=== PATIENT | male | born 1955 | race Caucasian/White ===

== ENCOUNTER → 2016-09-07 19:20 | Outpatient (CLI) | payer BC ==
[2015-08-13 13:10] VITALS: BMI 34.5
[~2016-09-07 19:20] MED LIST: ASPIRIN81 MG PO; COREG 3.1253.125 MG PO; EFFIENT10 MG PO
== END | disposition home or self-care (01) ==
LOC: D.SLEEP 19:20
DX: G47.33 Obstructive sleep apnea (adult) (pediatric) (principal)

== ENCOUNTER 2017-01-04 21:43 | Observation (INO) | payer BC ==
[~2017-01-04] VITALS: Ht 182.9 cm; Wt 120.7 kg
--- NOTE | ~2017-01-04 | HEMODYNAMI ---
PATIENT:ADRIANA MASON MEDICAL RECORD: [id number] : 51 [facility] [id number] ADMISSION DATE: 01/04/17 Generatedon:01/06/201714:49 Patient name: ADRIANA MASON Patient #: [id number] SSN: : 1955 Date of study: 01/06/2017 Page: Of Hemodynamic Procedure Report Patient Data Patient Demographics Procedure consent was obtained First Name: ADRIANA Gender: Male Last Name: ISABELLA : 1955 [facility] Initial: M Age: 61 year(s) Patient #: [id number] Race: Additional ID: [id number] Contact details Address: [address] [place] [address] State: [place] City: [place] Zip code: [address] Past Medical History Allergies: No known allergies Admission Admission Data Admission Date: 01/04/2017 Admission Time: 23:59 Room #: D2126 Lab Results Lab Result Date: 01/06/2017 Lab Result Time: 0:00 Biochemistry Name Units Result Min Max BUN mg/dl 19 --(----)*- 7 18 Creatinine mg/dl 1.3 --(---*)-- 0.6 1.3 CBC Name Units Result Min Max Hemoglobin g/dl 16.5 --(--*-)-- 13.5 17.5 Procedure Procedure Types Cath Procedure Diagnostic Procedure LHC C w/Coronaries PCI Procedure PTCA Initial x2 Miscellaneous Procedures Moderate Sedation up to 30 minutes Procedure Description Procedure Date Procedure Date: 01/06/2017 Procedure Start Time: 14:24 Procedure End Time: 14:42 Procedure Staff Name Function Mynor Angel RT Scrub Barrington Mcpherson MD Performing Physician Jelena Marr RN Nurse Manuel Mariee RT Monitor Procedure Data Cath Procedure Fluoroscopy Diagnostic fluoroscopy Total fluoroscopy Time: 5.6 time: 5.6 min min Diagnostic fluoroscopy Total fluoroscopy dose: 926 dose: 926 mGy mGy Contrast Material Contrast Material Type Amount (ml) Isovue 300 125 Entry Location Entry Primary Successful Side Size Upsize Upsize Entry Closure Marquez ccessful Closure Location (Fr) 1 (Fr) 2 (Fr) Remarks Device Remarks Radial Right 6 Fr Mechanical artery Short Compression Diagnostic catheters Device Type Used For End Catheter Placement Diagnostic Terumo 5Fr LV Angiography [place] 110cm catheter Procedure Complications No complications Procedure Medications Medication Administration Route Dosage Oxygen NC 2 l/min Heparin Flush Bag added to field 2 bags (1000units/500ml NS) Lidocaine 2% added to field 20 Radial Cocktail added to field 1 syringe (Verapomil 2mg/Nitro 400mcg/Heparin 1500units) Versed I.V. 1 mg Fentanyl I.V. 50 mcg Fentanyl I.V. 50 mcg Versed I.V. 1 mg Radial Cocktail I.A. 1 syringe (Verapomil 2mg/Nitro 400mcg/Heparin 1500units) Fentanyl I.V. 50 mcg Versed I.V. 1 mg Heparin Bolus I.V. 5000 units Integrilin (Bolus I.V. 10.7 ml 2mg/ml) Plavix P.O. 600 mg Hemodynamics Rest HGB: 16.5 (g/dl) Heart Rate: 71 (bpm) Pressure Samples Time Site Value (mmHg) Purpose Heart Use Rate(bpm) 14:26 LV 62/6,4 EDP 78 14:26 LV 97/3,8 EDP 95 Gradients Valve Time Site Site Mean SEP/DFP Peak To Heart Use 1 2 (mmHg) (sec/min) Peak Rate (mmHg) (bpm) Aortic 14:27 LV AO 50 Snapshots Pre Cath Intra NCS Post Cath Vital Signs Time Heart Resp SPO2 etCO2 [id number] NIBP (mmHg) Rhythm Pain Sedation Rate (ipm) (%) (mmHg) (mmHg) Status Level (bpm) 14:08:04 73 22 99 0 0 141/96(128) NSR 0 (11) 10(A) , No pain 14:12:25 71 19 100 0 0 132/76(108) NSR 0 (11) 10(A) , No pain 14:16:38 70 18 99 0 0 131/84(107) NSR 0 (11) 10(A) , No pain 14:20:52 73 20 95 0 0 118/88(101) NSR 0 (11) 10(A) , No pain 14:25:04 76 15 97 0 0 114/79(98) NSR 0 (11) 9(A) , No pain 14:29:14 79 18 95 0 0 118/74(94) NSR 0 (11) 9(A) , No pain 14:34:13 68 20 97 0 0 Measuring NSR 0 (11) 9(A) , No pain 14:34:22 68 20 97 0 0 117/74(101) NSR 0 (11) 9(A) , No pain 14:38:33 70 16 96 0 0 111/70(90) NSR 0 (11) 9(A) , No pain 14:41:13 70 15 99 0 0 120/62(86) NSR 0 (11) 9(A) , No pain Medications Time Medication Route Dose Verified Delivered Reason Note s Effectiveness by by 14:11:58 Oxygen NC 2 l/min Barrington Jelena Per physician St. Biju Marr RN, MD 14:12:06 Heparin Flush added 2 bags Barrington Barrington [facility] (1000units/500ml field MD MORA NS) 14:12:14 Lidocaine 2% added 20ml Barrington Huttonory used for to vial Vida [place] procedure field MD MORA 14:13:01 Radial Cocktail added 1 Barrington Barrington used for ([facility]apomil [facility] procedure 2mg/Nitro field MD MORA 400mcg/Hepari 14:17:13 Fentanyl I.V. 50 mcg Barrington Jelena for sedation St. Biju Marr RN, MD 14:17:27 Versed I.V. 1 mg Barrington Jelena for sedation St. Biju Marr RN, MD 14:20:31 Fentanyl I.V. 50 mcg Barrington Jelena for sedation St. Biju Marr RN, MD 14:20:34 Versed I.V. 1 mg Barrington Jelena for sedation St. Biju Marr RN, MD 14:22:36 Fentanyl I.V. 50 mcg Barrington Jelena for sedation St. Biju Marr RN, MD 14:22:45 Versed I.V. 1 mg Barrington Jelena for sedation St. Biju Marr RN, MD 14:24:33 Radial Cocktail I.A. 1 Barrington Barrington for (Verapomil syringe [place] Vida vasodilation 2mg/Nitro MD MORA 400mcg/Hepari 14:31:51 Heparin Bolus I.V. 5000 Barrington Bowles for dose units St. Biju Marr RN anticoagulation verified MD with dr coronel 14:35:10 Integrilin I.V. 10.7 ml Barrington Bowles for wast ed (Bolus 2mg/ml) St. Biju Marr RN antiplatelet 9.3mL MD therapy 14:43:24 Plavix P.O. 600 mg Bar[address]oles for St. Biju Marr RN antiplatelet MD therapy Procedure Log Time Note 13:40:59 Mynor Angel RT(R) sent for patient. Start room use. 13:59:51 ACC Patient presents with Unstable Angina CCS Anginal Class 3--Marked limitation of physical activity, angina occurs with ordinary activity.. 13:59:54 Diagnostic Cath status Urgent 14:00:05 Time tracking: Regular hours 14:00:10 Plan of Care:Hemodynamics will remain stable., Cardiac rhythm will remain stable., Comfort level will be maintained., Respiratory function will remain adequate., Patient/ family verbilizes understanding of procedure., Procedure tolerated without complication., Recovers from procedure without complications.. 14:00:25 Patient received from PCU to CCL 1 Alert and oriented. Tansferred to table in Supine position. 14:00:26 Warm blankets applied, and gabriella hugger turned on for patient comfort. 14:00:27 Correct patient and procedure confirmed by team. 14:00:29 Signed procedure consent form obtained from patient. 14:00:30 ECG and BP/O2 sat monitors applied to patient. 14:07:02 Vital chart was started 14:11:58 Oxygen 2 l/min NC was administered by Jelena Marr RN; Per physician; 14:12:06 Heparin Flush Bag (1000units/500ml NS) 2 bags added to field was administered by Barrington Mcpherson MD; used for procedure; 14:12:14 Lidocaine 2% 20ml vial added to field was administered by Barrington Mcpherson MD; used for procedure; 14:13:01 Radial Cocktail (Verapomil 2mg/Nitro 400mcg/Heparin 1500units) 1 syringe added to field was administered by Barrington Mcpherson MD; used for procedure; 14:13:16 Baseline sample Acquired. 14:13:19 Rhythm: sinus rhythm 14:13:20 Full Disclosure recording started 14:15:13 H&P Date Dictated: 01/06/2017 Within 30 days and on chart.. 14:15:15 Pre-op teaching completed and patient verbalized understanding. 14:15:15 Pre-procedure instructions explained to patient. 14:15:20 Family in patients room. 14:15:22 Patient NPO since Midnight. 14:15:30 Patient allergic to No known allergies 14:15:32 Is the patient allergic to Iodine/contrast media? No. 14:15:38 Is patient on blood thinner?No 14:15:39 Patient diabetic? No. 14:15:40 ----Pre-sedation anethsthesia assessment.---- 14:15:43 Previous problem with sedation/anesthesia? No ? 14:15:44 Snore? Yes 14:15:45 Sleep apnea? Yes 14:15:47 Deviated septum? No 14:15:49 Opens mouth fully? Yes 14:15:50 Sticks out tongue? Yes 14:15:52 Airway obstruction? No ? 14:15:55 Dentures? No ? 14:15:57 Pre procedure: right dorsailis pedis pulse 1+ Palpable, but thready & weak; easily obliterated 14:16:00 Modified Jeffrey's test Ulnar > 7 seconds. 14:16:05 Patient pain scale 0/10 ?. 14:16:08 IV patent on arrival in right hand with 0.9% NaCl at 10ml/hr. 14:16:49 Lab Result : Hemoglobin 16.5 g/dl 14:16:49 Lab Result : Creatinine 1.3 mg/dl 14:16:49 Lab Result : BUN 19 mg/dl 14:16:52 Lab results completed and on chart. 14:16:56 Right Radial & Right Groin area was prepped with chlora-prep and draped in sterile fashion 14:16:57 Sharps counted by scrub and verified by R.N. 14:16:57 Alarms reviewed by R. N. 14:16:58 --------ALL STOP TIME OUT------ 14:16:59 Final Timeout: patient, procedure, and site verified with staff and physician. All members of the team are in agreement. 14:17:00 Right Radial & Right Groin site verified by team. 14:17:06 Physical assessment completed. ASA score P 2 - A patient with mild systemic disease as per Barrington Mcpherson MD. 14:17:09 Sedation plan: IV Moderate Sedation Versed, Fentanyl 14:17:13 Fentanyl 50 mcg I.V. was administered by Jelena Marr RN; for sedation; 14:17:27 Versed 1 mg I.V. was administered by Jelena Marr RN; for sedation; 14:20:31 Fentanyl 50 mcg I.V. was administered by Jelena Marr RN; for sedation; 14:20:34 Versed 1 mg I.V. was administered by Jelena Marr RN; for sedation; 14:22:36 Fentanyl 50 mcg I.V. was administered by Jelena Marr RN; for sedation; 14:22:45 Versed 1 mg I.V. was administered by Jelena Marr RN; for sedation; 14:23:52 Zero performed for pressure channel P1 14:24:22 Acist Syringe opened to sterile field. 14:24:22 Use device set Radial Dx 14:24:23 Bag Decanter opened to sterile field. 14:24:23 Medline Cath Pack opened to sterile field. 14:24:24 Acist Hand Control opened to sterile field. 14:24:24 St Ayad 260cm J .035 wire opened to sterile field. 14:24:24 Terumo 6Fr Slender Glidesheath opened to sterile field. 14:24:25 Tegaderm 4 x 4 opened to sterile field. 14:24:25 Acist Manifold opened to sterile field. 14:24:26 MBrace Wrist Support opened to sterile field. 14:24:27 Procedure started. 14:24:33 Radial Cocktail (Verapomil 2mg/Nitro 400mcg/Heparin 1500units) 1 syringe I.A. was administered by Barrington Mcpherson MD; for vasodilation; 14:24:39 Local anesthetic to right radial artery with Lidocaine 2% by Barrington Mcpherson MD.INITIAL ACCESS ONLY 14:24:47 A 6 Fr Short sheath was inserted into the Right Radial artery 14:25:28 A Diagnostic Terumo 5Fr [place] 110cm catheter was advanced over the wire and used for LV Angiography. 14:27:13 LV angiography performed. 14:: EF : 55 % 14::19 LV gram done using MURPHY 14:: LV hemodynamics recorded. 14::24 Injector settings: Ml/sec: 7, Volume: 15, :: LCA angiography performed. 14:: RCA angiography performed. 14:: Catheter removed. 14:30:17 ACC PCI Site: OM1 has 80% stenosis. 14:30:22 ACC PCI Site: OM2 has 90% stenosis. 14:30:25 ACC Pre-intervention ALLEN Flow is 3. 14:30:33 6 Fr EBU 4 guide catheter was inserted over the wire 14:31:51 Heparin Bolus 5000 units I.V. was administered by Jelena Marr RN; for anticoagulation; dose verified with dr coronel 14:34:02 LIA BasixCompak Inflation Kit opened to sterile field. 14:34:02 Malauzai Softwaretronic Launcher 6Fr EBU 4.0 guide catheter opened to sterile field. 14:34:03 Rodriguez [place] 300cm 0.014 guide wire opened to sterile field. 14:34:03 PoachIt TR Band Standard opened to sterile field. 14:34:19 COUGAR wire advanced. 14:35:10 Integrilin (Bolus 2mg/ml) 10.7 ml I.V. was administered by Jelena Marr RN; for antiplatelet therapy; wasted 9.3mL 14:36:41 Inflation number: 1 A [place] Sci Comal 2.5 X 15 balloon was prepped and advanced across the 1st Ob Juliette, then inflated to 12 ALFREDITO for 0:28 (min:sec). 14:37:43 Wire removed. 14:37:43 Balloon removed over the wire. 14:38:02 OM2 COUGAR wire advanced. 14:38:45 Inflation number: 2 The [place] Sci Comal 2.5 X 15 balloon was reinflated across the 1st Ob Juliette, to 12 ALFREDITO for 0:18 (min:sec). 14:38:47 Balloon removed over the wire. 14:38:48 Wire removed. 14:38:49 Guide catheter removed. 14:38:59 Contrast amount:Isovue 300 125ml. 14:39:06 Sheath removed intact; hemostasis achieved with Mechanical Compression to the Right Radial artery. 14:39:10 Procedure ended.(Physican Out) 14:39:20 Fluoroscopy time 05.60 minutes. 14:39:25 Fluoroscopy dose: 926 mGy 14:39:25 Flurop Dose total: 926 14:39:27 Sharps counted by scrub and verified by R.N. 14:39:28 TR band inflated with 10cc of air. 14:39:30 Insertion/operative site no bleeding no hematoma. 14:39:37 Post right radial artery:stable 14:39:38 Post Procedure Pulses reassessed and unchanged 14:39:41 Post procedure: right dorsailis pedis pulse 1+ Palpable, but thready & weak; easily obliterated. 14:39:47 Post procedure rhythm: sinus rhythm 14:39:51 Post procedure instruction explained to patient.Patient verbalizes understanding. 14:41:21 Procedure type changed to Cath procedure, Diagnostic procedure, LHC, LHC w/Coronaries, PCI procedure, PTCA Initial x2, Miscellaneous Procedures, Moderate Sedation up to 30 minutes 14:41:44 Procedure and supply charges have been captured, reviewed, submitted and are correct. 14:42:13 Procedure Complication : No complications 14:42:16 See physician's report for complete and final results. 14:42:16 Vital chart was stopped 14:42:19 Report given to PCU. 14:42:27 Patient transfered to PCU with Bed. 14:42:30 Full Disclosure recording stopped 14:42:30 Procedure ended. 14:42:42 ACC-PCI Only Patient was given prescriptions, or instructed by Barrington Mcpherson MD to start/continue the following medications upon discharge: Plavix 14:42:43 End room use (Document Last) 14:43:24 Plavix 600 mg P.O. was administered by Jelena Marr RN; for antiplatelet therapy; Intervention Summary Intervention Notes Time ActionType Lesion and Equipment Action# Pressure Duration Attributes Used 14:36:41 Inflate 1st Ob Juliette [place] 1 12 00:28 balloon Sci Comal 2.5 X 15 balloon 14:38:45 Reinflate 1st Ob Juliette [place] 2 12 00:18 balloon Sci Comal 2.5 X 15 balloon Device Usage Item Name Manufacture Quantity Catalog Number Hospital Part Current Mini mal Lot# / Charge Number Stock Stock Serial# Code [facility] 1 56204 172484 053592 [id number] 20 Syringe Medical Systems Inc Medline Cardinal 1 [id number] 651800 30474 550406 5 Cath Pack Health Bag Microtek 1 2002S [id number] 24021 366617 5 Decanter Medical Inc. Terumo 6Fr Terumo 1 [id number] 874745 664725 939735 [address] Ayad 1 676900 351543 867950 101204 30 260cm J .035 wire Acist Hand Acist 1 18423 452148 519651 620159 5 Control Medical Systems Inc Acist Acist 1 21256 504328 514354 652128 5 Manifold Medical Systems Inc Tegaderm 4 3M 1 1626W 554847 630824 050471 5 x 4 MBrace Advanced 1 140-0250-00 893411 82163 104734 5 Wrist Vascular Support Dynamics Diagnostic Terumo 1 89-8297 851344 993253 301494 5 Terumo 5Fr [place] 110cm catheter Medtronic Medtronic 1 [id number] 407246 34974 506176 1 Launcher 6Fr EBU 4.0 guide catheter Merit Merit 1 [id number] 140404 586007 146758 15 BasixCompak Medical Inflation Kit Terumo TR Terumo 1 [id number] 753299 289089 103945 40 Band Standard Rodriguez Rodriguez 1 [id number] 282900 271165 369061 1 [place] Vascular 300cm 0.014 guide wire Bathgate Sci [place] 1 [id number] 202116 395560 651282 1 [id number] Direct [employer] 2.5 X 15 balloon Signature Audit [place] Stage Time Signature Unsigned Intra-Procedure 01/06/2017 Manuel Mariee 2:49:30 PM RT(R) Signatures Monitor : Manuel Mariee RT Signature : Date : Time : [place] [id number] [place] [id number]
--- NOTE | ~2017-01-04 | OP ---
PATIENT NAME: ADRIANA MASON MEDICAL RECORD: [id number] :51 LOCATION:D. D.2126 ADMISSION DATE:01/04/17 SURGEON: JARRET HOANG MD OPERATION DATE: 01/06/17 PROCEDURES: 1. Left heart catheterization. 2. Selective coronary angiography. 3. PTCA to OM1 and OM2. PROCEDURE IN DETAIL: After informed consent was obtained and after detailed explanation of risks, benefits, as well as alternative therapies, the patient elected to proceed with angiogram. The right radial area was prepped and draped in a normal sterile fashion. The right radial artery was cannulated via modified Seldinger technique with placement of 5-Estonian sheath. All catheters exchanged through this sheath. [place] catheter. The procedure was well-tolerated, and proceeded to PTCA of the OM1 and OM2. FINDINGS: Left ventriculography was performed in standard 30 degree MURPHY view, normal wall motion, normal systolic function. CORONARY ANATOMY: 1. LEFT MAIN: The left main was free of disease. 2. LEFT ANTERIOR DESCENDING: The left anterior descending in the area of previous stenting is widely patent with no evidence of restenosis. No evidence of progression of major disease. 3. CIRCUMFLEX: The circumflex has a medium sized OM1 and medium sized OM2 both with 90% stenosis, very discrete. 4. RIGHT CORONARY ARTERY: The right coronary artery in the area of previous stenting is widely patent. No progression of major disease. IMPRESSION: Unstable angina, atrial fibrillation. Plan intervention to OM1 and OM2 momentarily. PTCA to OM1 and OM2: Using the indwelling sheath, an EBU4 guided catheter provided excellent guidance of the catheter forward. This was followed by a 300 centimeter wire that was placed across initially OM1 down the distal portion of this vessel. Balloon used was a 2.5 X 15 millimeter [place] balloon which was inflated up to 12 atmospheres for 45 seconds. Next the wire was withdrawn and placed in the OM2. This area of 90% stenosis again inflated up to 12 atmospheres for 45 seconds. FINAL ANGIOGRAPHY: Shows excellent resolution of a 90% stenosis discrete focal in both the OM1 and OM2 to no significant residual. ALLEN flow was 3 throughout the procedure. Integrilin was used during the case. Sheath was closed with TR band. Plavix was loaded in the lab. JARRET HOANG MD CC: [id number] DICTATION DATE: 01/06/17 1200 INSPECTOR RAW QUARTZ: PO 01/06/17 1842 ADM IN [place] [id number] [place] [id number]
[2017-01-04 22:20] LABS: BASOPHILS 0.2 % (0-2); EOSINOPHILS 3.2 % (0-7); HEMATOCRIT 47.8 % (42.0-54.0); HEMOGLOBIN 16.5 g/dL (13.5-17.5); IMMATURE GRANULOCYTES 0.6 % (0-5); LYMPHOCYTES 13.3 % (15-50); MCH 32.7 pg (26.0-34.0); MCHC 34.5 g/dL (31.0-37.0); MCV 94.8 fL (80.0-100.0); MEAN PLATELET VOLUME 10.4 fL (7.4-10.4); MONOCYTES 9.5 % (2-11); NEUTROPHILS 73.2 % (40-80); PLATELET COUNT 194 10x3/uL (130-400); RBC 5.04 10x6/uL (4.20-6.10); RDW 12.8 % (11.5-14.5); WBC 9.6 10x3/uL (4.8-10.8)
[2017-01-04 22:45] LABS: ALBUMIN 3.9 g/dL (3.4-5.0); ALKALINE PHOSPHATASE 86 U/L (46-116); ALT (SGPT) 47 U/L (10-68); BILIRUBIN - TOTAL 0.57 mg/dL (0.2-1.3); CALC OSMOLALITY 290 mosm/kg (275-300); CALCIUM 9.4 mg/dL (8.5-10.1); CARBON DIOXIDE 25.7 mmol/L (21.0-32.0); CHLORIDE - SERUM 109 mmol/L (98-107); GLUCOSE 105 mg/dL (74-106); POTASSIUM - SERUM 4.7 mmol/L (3.5-5.1); PROTEIN - SERUM 6.9 g/dL (6.4-8.2); SODIUM 144 mmol/L (136-145); UREA NITROGEN 24 mg/dL (7-18); eGFR NON AFRICAN AMERICAN 36 mL/min (90-120)
[2017-01-04 22:56] LABS: CHOL - HDL RATIO 3.6 ratio (2.3-4.9); CHOLESTEROL, TOTAL 198 mg/dL (0-200); CKMB 10.1 U/L (0.0-3.6); CREATINE KINASE 563 UL (21-232); HDL CHOLESTEROL 55 mg/dL (32-96); LDL CHOLESTEROL 102 mg/dL (0-100); LDL-HDL RATIO 1.9 ratio (1.5-3.5); TRIGLYCERIDE 205 mg/dL (30-200); TROPONIN-I 0.018 ng/mL (0.000-0.060)
--- NOTE | 2017-01-05 02:00 | NUR ---
PT ARRIVED TO [facility] VIA HOSPITAL BED. S1S2; IRREGULAR DISTANT. RR EQUAL NON LABORED. PERRLA. AAO. CHIEF COMPLAINT CHEST TIGHTNESS. ON CARDIZEM DRIP @ 10 STARTED IN THE ER. 20 GAUGE RIGHT WRIST; PATENT. AFIB SHOWING ON MONITOR. RADIAL AND PEDAL PULSES PALPATED. AAO.
[2017-01-05] MEDS ORDERED: COZAAR100 MG PO (02:03)
[2017-01-05 02:26] VITALS: BP 122/76; Ht 182.9 cm; Wt 120.7 kg
[2017-01-05 02:27] VITALS: BP 122/76
[2017-01-05 03:05] LABS: CKMB 9.1 U/L (0.0-3.6); CREATINE KINASE 490 UL (21-232)
[2017-01-05 03:07] LABS: TROPONIN-I 0.491 ng/mL (0.000-0.060)
--- NOTE | 2017-01-05 05:36 | NUR ---
PT RESTING; EYES CLOSED. NO DISTRESS NOTED. CALL LIGHT IN REACH. WILL CONTINUE TO MONITOR.
--- NOTE | 2017-01-05 08:12 | NUR ---
ASSESSMENT DONE. DENIES NEEDS.
[2017-01-05 08:23] VITALS: BP 113/73
[2017-01-05 08:39] LABS: CKMB 9.7 U/L (0.0-3.6); CREATINE KINASE 441 UL (21-232)
[2017-01-05 08:42] LABS: TROPONIN-I 0.614 ng/mL (0.000-0.060)
--- NOTE | 2017-01-05 10:31 | NUR ---
RESTS WITH EYES CLOSED. IV PATENT. CALL LIGHT IN REACH. WILL CONT. PLAN OF CARE.
[2017-01-05 12:40] VITALS: BP 103/57
[2017-01-05 14:28] LABS: CKMB 7.8 U/L (0.0-3.6); CREATINE KINASE 384 UL (21-232)
[2017-01-05 14:30] LABS: TROPONIN-I 0.392 ng/mL (0.000-0.060)
[2017-01-05 16:15] VITALS: BP 120/55
--- NOTE | 2017-01-05 17:53 | NUR ---
WITHOUT CHANGES OR DISTRESS NOTED AT THIS TIME. FAMILY AT SIDE.
[2017-01-05 19:00] VITALS: BP 133/84
--- NOTE | 2017-01-05 19:42 | NUR ---
RESUMED CARE OF PT, LYING IN BED WITH EYES CLOSED RESPIRATIONS EVEN AND UNLABORED ON ROOM AIR. 71 CAF ON TELEMETRY. RIGHT HAND INFUSING NS @ 75 AND CARDIZEM @ 10. NO NEEDS NOTED AT THIS TIME, WILL CONTINUE TO MONITOR. CALL LIGHT IN REACH. SEE NURSE ASSESSMENT.
--- NOTE | 2017-01-05 22:22 | NUR ---
NIGHT MEDS GIVEN, PLAN OF CARE DISCUSSED. NO NEEDS AT THIS TIME. WILL CONTINUE TO MONITOR.
[2017-01-06] VITALS: BP 129/78
[2017-01-06 04:00] VITALS: BP 133/54
--- NOTE | 2017-01-06 05:08 | NUR ---
57 SB ON TELEMETRY. WILL CONTINUE TO MONITOR.
[2017-01-06 05:56] LABS: ANION GAP 13.3 mmol/L (8-16); CALCIUM 8.2 mg/dL (8.5-10.1); CARBON DIOXIDE 25.2 mmol/L (21.0-32.0); POTASSIUM - SERUM 4.5 mmol/L (3.5-5.1)
[2017-01-06 06:05] LABS: CREATININE - SERUM 1.3 mg/dL (0.6-1.3)
--- NOTE | 2017-01-06 06:46 | NUR ---
SHOWER AND LINENS CHANGED.
--- NOTE | 2017-01-06 06:47 | NUR ---
NO CHANGES FROM PREVIOUS ASSESSMENT, CALL LIGHT IN REACH.
[2017-01-06 08:00] VITALS: BP 117/69
--- NOTE | 2017-01-06 08:00 | NUR ---
INTRODUCED MYSELF TO PT PRIMARY RN FOR TODAYS SHIFT. PT IS A&O RESTING IN BED SITTING UP WITH AT BEDSIDE. RR NONLABORED ON RA. PT HAS A R.HAND PIV WITH NS @75ML/HR INFUSING, DRSG CDI AND SWAB CAPS IN USE. PT DENIES ANY CURRENT CP AND STATES HE HASNT HAD ANY SINCE ADMISSION. PT WEARING TELEMETRY AND HAS CONVERTED TO SR. PT GOING TO [facility] [facility] WITH LATER THIS AFTERNOON AND CONSENTS ARE SIGNED AND IN THE CHART. PT DENIES ANY QUESTIONS AND STATES "IM ANDRIA BELLO HAD 4 STENTS BEFORE" PT ALLOWED TO EAT LIGHT BREAKFAST AND THEN IS TO BE NPO AND VERBALIZED UNDERSTANDING. NO FURTHER NEEDS NOTED AT THIS TIME. CL IN REACH, BED IN LOWEST, SIDE RAILS X2. WILL CPOC.
[2017-01-06 08:23] LABS: BASOPHILS 0.6 % (0-2); EOSINOPHILS 6.8 % (0-7); HEMATOCRIT 44.6 % (42.0-54.0); IMMATURE GRANULOCYTES 0.8 % (0-5); LYMPHOCYTES 24.5 % (15-50); MCH 32.3 pg (26.0-34.0); MCHC 33.6 g/dL (31.0-37.0); MCV 95.9 fL (80.0-100.0); MEAN PLATELET VOLUME 10.5 fL (7.4-10.4); MONOCYTES 12.5 % (2-11); NEUTROPHILS 54.8 % (40-80); PLATELET COUNT 190 10x3/uL (130-400); RBC 4.65 10x6/uL (4.20-6.10)
[2017-01-06 08:24] LABS: WBC 6.2 10x3/uL (4.8-10.8)
[2017-01-06 12:00] VITALS: BP 119/75
--- NOTE | 2017-01-06 13:51 | NUR ---
CATH CALLED TO PRE-OP PT. PRE-OP WAS BEING DONE CATH TEAM ARRIVED AND STATED VALIUM NOT NEEDED R/T IT NOT BEING EFFECTIVE NOW THAT ITS TIME, WILL RETURN PULLED DRUG TO P[facility]XIS. PT READY TO GO AND DENIES ANY QUESTIONS OR CONCERNS. WILL CTM.
--- NOTE | 2017-01-06 15:00 | NUR ---
PT BACK FROM [employer]. VSS AND BEING MONITERED [id number]. PT HAS A R.WRIST TR BAND WITH 12CC AIR INFLATED, SITE CLEAN AND DRY NO S/S OF BLEEDING NOTED. PT AWAKE BUT VERY DROWSY. AT BEDSIDE AND GOING OVER PROCEDURE. INTIATED IV FLUIDS INFUSING @100ML/HR VIA R.HAND PIV WITH DRSG CDI AND SWAB CAPS IN USE. PT DENIES ANY FURTHER NEEDS AT THIS TIME. CL IN REACH, BED IN LOWEST, SIDE RAILS X2. WILL CTM.
[2017-01-06] MEDS ORDERED: PLAVIX75 MG PO (15:21)
[2017-01-06] MEDS ORDERED: BETAPACE 80 MG80 MG PO (15:30)
[2017-01-06 16:00] VITALS: BP 119/75
--- NOTE | 2017-01-06 17:20 | NUR ---
PT SITTING UP IN BED EATING DINNER TRAY. VSS AND STILL BEING MONITERED. R.WRIST TR BAND IN PLACE AND CDI, NO S/S OF BLEEDING NOTED. PT DENIES ANY CURRENT PAIN OR NEEDS. CL IN REACH, BED IN LOWEST, SIDE RAILS X2. WILL CTM.
--- NOTE | 2017-01-06 18:30 | NUR ---
REMOVED HALF OF AIR FROM PTS R.WRIST TR BAND AND NO BLEEDING NOTED. DISCHARGE PAPERS ARE COMPLETE BUT PT WILL NEED TO WAIT UNTIL THE REST OF THE AIR CAN BE DEFLATED. VSS. AT BEDSIDE, WILL REPORT DURING SHIFT CHANGE TO NIGHT NURSE.
--- NOTE | 2017-01-06 20:33 | NUR ---
REMOVED REMAINING AIR FROM RIGHT WRIST TR BAND. NO BLEEDING OR SWELLING NOTED. DISCHARGE INSTRUSCTIONS GONE OVER, ALONG WITH MIDICATIONS AND FOLLOW UP APPT. PT AND STATED UNDERSTANDING.
--- NOTE | 2017-01-06 20:38 | NUR ---
ESCORTED TO FRONT DOOR BY WHERE IS WAITING IN PERSONAL CAR. PERSONAL BELONGINGS WITH PT.
== END 2017-01-06 20:40 | disposition home or self-care (01) ==
LOC: D.ER 21:43 → D.M2 23:59 → OBSVTIME 23:59 → D.M2 23:59
PROVIDERS: Emergency Medicine; ADMIT Internal Medicine Cardiovascular Disease
DX: I48.91 Unspecified atrial fibrillation (principal); I25.110 Atherosclerotic heart disease of native coronary artery with unstable angina pectoris; Z95.5 Presence of coronary angioplasty implant and graft; I10 Essential (primary) hypertension

== ENCOUNTER → 2017-04-28 10:54 | Outpatient (CLI) | payer BC ==
--- NOTE | ~2017-04-28 | HEMODYNAMI ---
PATIENT:ADRIANA MASON MEDICAL RECORD: [id number] : 51 LOCATION:D.CAT ADMISSION DATE: 04/28/17 Generatedon:04/28/201714:14 Patient name: ADRIANA MASON Patient #: [id number] SSN: : 1955 Date of study: 04/28/2017 Page: Of Hemodynamic Procedure Report Patient Data Patient Demographics Procedure consent was obtained First Name: ADRIANA Gender: Male Last Name: ISABELLA : 1955 Middle Initial: M Age: 61 year(s) Patient #: [id number] Race: Additional ID: [id number] Contact details [address]: [address] [place] [address] State: [place] City: [place] Zip code: [address] Past Medical History Allergies: No known allergies Admission Admission Data Admission Date: 04/28/2017 Admission Time: 10:54 Procedure Procedure Types Cath Procedure Diagnostic Procedure C [facility] w/Coronaries PCI Procedure Coronary Stent Initial Miscellaneous Procedures Moderate Sedation up to 15 minutes Procedure Description Procedure Date Procedure Date: 04/28/2017 Procedure Start Time: 13:47 Procedure End Time: 14:13 Procedure Staff Name Function Tr Jimenez MD Performing Physician Jacquelyn Medina RT Scrub Pratima Hsieh RN Nurse Mynor Angel RT Monitor Procedure Data Cath Procedure Fluoroscopy Diagnostic fluoroscopy Total fluoroscopy Time: 4.4 time: 4.4 min min Diagnostic fluoroscopy Total fluoroscopy dose: 975 dose: 975 mGy mGy Contrast Material Contrast Material Type Amount (ml) Isovue 300 108 Entry Location Entry Primary Successful Side Size Upsize Upsize Entry Closure Marquez ccessful Closure Location (Fr) 1 (Fr) 2 (Fr) Remarks Device Remarks Radial Right 6 Fr Mechanical artery Short Compression Estimated blood loss: 10 ml Diagnostic catheters Device Type Used For End Catheter Placement Terumo 5Fr Pedro Luis 110cm Procedure catheter Procedure Complications No complications Procedure Medications Medication Administration Route Dosage Oxygen NC 2 l/min Heparin Flush Bag added to field 2 bags (1000units/500ml NS) Lidocaine 2% added to field 20 Radial Cocktail added to field 1 syringe (Verapomil 2mg/Nitro 400mcg/Heparin 1500units) Fentanyl I.V. 50 mcg Versed I.V. 1 mg Radial Cocktail I.A. 1 syringe (Verapomil 2mg/Nitro 400mcg/Heparin 1500units) Fentanyl I.V. 50 mcg Versed I.V. 1 mg Versed I.V. 0.5 mg Versed I.V. 0.5 mg Heparin Bolus I.V. 36059 units Hemodynamics Rest Heart Rate: 66 (bpm) Pressure Samples Time Site Value (mmHg) Purpose Heart Use Rate(bpm) 13:50 LV 172/-6,11 Snapshot 79 13:51 AO 142/97(119) Snapshot 85 Gradients Valve Time Site Site Mean SEP/DFP Peak To Heart Use 1 2 (mmHg) (sec/min) Peak Rate (mmHg) (bpm) Aortic 13:51 LV AO 82 Snapshots Pre Cath Intra NCS Post Cath Vital Signs Time Heart Resp SPO2 NIBP (mmHg) Rhythm Pain Sedation Rate (ipm) (%) Status Level (bpm) 13:38:17 66 18 98 174/89(122) NSR 0 (11) 10(A) , No pain 13:43:51 71 14 98 149/106(126) NSR 0 (11) 10(A) , No pain 13:48:36 69 16 92 155/91(115) NSR 0 (11) 9(A) , No pain 13:53:14 82 16 96 136/87(111) NSR 0 (11) 9(A) , No pain 13:57:57 74 14 92 149/86(110) NSR 0 (11) 9(A) , No pain 14:02:38 78 15 93 138/86(118) NSR 0 (11) 9(A) , No pain 14:07:22 74 17 94 143/79(111) NSR 0 (11) 9(A) , No pain 14:12:07 71 18 96 145/87(118) NSR 0 (11) 9(A) , No pain Medications Time Medication Route Dose Verified Delivered Reason Note s Effectiveness by by 13:33:01 Oxygen NC 2 l/min Pratima Pratima used for Hsieh Hsieh high climber RN 13:33:08 Heparin Flush added 2 bags Pratima Pratima used for Bag to Hsieh Hsieh procedure (1000units/500ml field RN RN NS) 13:33:17 Lidocaine 2% added 20ml Pratima Pratima used for to vial Hsieh Hsieh procedure field RN RN 13:33:26 Radial Cocktail added 1 Pratima Pratima used for (Verapomil to syringe Hsieh Hsieh procedure 2mg/Nitro field RN RN 400mcg/Heparin 1500units) 13:43:17 Fentanyl I.V. 50 mcg Pratima Pratima for sedation Hsieh Hsieh RN RN 13:43:23 Versed I.V. 1 mg Pratima Pratima for sedation Hsieh Hsieh RN RN 13:49:46 Radial Cocktail I.A. 1 Pratima Tr for (Verapomil syringe Hsieh Jimenez MD vasodilation 2mg/Nitro RN 400mcg/Heparin 1500units) 13:49:52 Fentanyl I.V. 50 mcg Pratima Pratima for sedation Hsieh Hsieh RN RN 13:49:55 Versed I.V. 1 mg Pratima Pratima for sedation Hsieh Hsieh RN RN 13:51:19 Versed I.V. 0.5 mg Pratima Pratima for sedation Hsieh Hsieh RN RN 13:52:28 Versed I.V. 0.5 mg Pratima Pratima for sedation Hsieh Hsieh RN RN 14:01:20 Heparin [place].V. 03972 Pratima Pratima for veri fied units Hsieh Hsieh anticoagulation heparin RN RN bolus with dr. jimenez Procedure Log Time Note 13:15:01 Pratima Hsieh RN sent for patient. Start room use. 13:22:02 Time tracking: Regular hours 13:22:11 Plan of Care:Hemodynamics will remain stable., Cardiac rhythm will remain stable., Comfort level will be maintained., Respiratory function will remain adequate., Patient/ family verbilizes understanding of procedure., Procedure tolerated without complication., Recovers from procedure without complications.. 13:26:31 Patient received from Pre/Post Procedure Room to [facility] Alert and oriented. Tansferred to table in Supine position. 13:26:32 Warm blankets applied, and gabriella hugger turned on for patient comfort. 13:26:33 Correct patient and procedure confirmed by team. 13::34 Signed procedure consent form obtained from patient. 13:26:36 ECG and BP/O2 sat monitors applied to patient. 13:33:01 Oxygen 2 l/min NC was administered by Pratima Hsieh RN; used for procedure; 13:33:08 Heparin Flush Bag (1000units/500ml NS) 2 bags added to field was administered by Pratima Hsieh RN; used for procedure; 13:33:17 Lidocaine 2% 20ml vial added to field was administered by Pratima Hsieh RN; used for procedure; 13:33:26 Radial Cocktail (Verapomil 2mg/Nitro 400mcg/Heparin 1500units) 1 syringe added to field was administered by Pratima Hsieh RN; used for procedure; 13:37:14 Vital chart was started 13:38:37 Baseline sample Acquired. 13:38:53 Rhythm: sinus rhythm 13:38:54 Full Disclosure recording started 13:39:22 H&P Date Dictated: 04/27/2017 Within 30 days and on chart., H&P Addendum completed by physician on day of procedure. (MUST COMPLETE FOR ALL OUTPATIENTS). 13:39:23 Pre-procedure instructions explained to patient. 13:39:24 Pre-op teaching completed and patient verbalized understanding. 13:39:25 Family in waiting room. 13:39:26 Patient NPO since Midnight. 13:39:28 Is the patient allergic to Iodine/contrast media? No. 13:39:35 Is patient on blood thinner?No 13:39:36 Patient diabetic? No. 13:39:39 Previous problem with sedation/anesthesia? No ? 13:39:40 Snore? Yes 13:39:40 Sleep apnea? Yes 13:39:41 Deviated septum? No 13:39:42 Opens mouth fully? Yes 13:39:42 Sticks out tongue? Yes 13:39:44 Airway obstruction? No ? 13:39:47 Dentures? No ? 13:39:50 Pre procedure: right dorsailis pedis pulse 1+ Palpable, but thready & weak; easily obliterated 13:39:52 Modified Jeffrey's test Ulnar < 7 seconds 13:39:54 Patient pain scale 0/10 ?. 13:40:06 IV patent on arrival in right antecubital with 0.9% NaCl at [facility]. 13:40:09 Lab results completed and on chart. 13:40:12 Right Radial & Right Groin area was prepped with chlora-prep and draped in sterile fashion 13:40:13 Alarms reviewed by R. N. 13:40:13 Sharps counted by scrub and verified by R.N. 13:40:14 --------ALL STOP TIME OUT------ 13:40:14 Final Timeout: patient, procedure, and site verified with staff and physician. All members of the team are in agreement. 13:40:16 Right Radial & Right Groin site verified by team. 13:40:20 Physical assessment completed. ASA score P 2 - A patient with mild systemic disease as per Tr Jimenez MD. 13:40:23 Sedation plan: IV Moderate Sedation Versed, Fentanyl 13:43:17 Fentanyl 50 mcg I.V. was administered by Pratima Hsieh RN; for sedation; :43:23 Versed 1 mg I.V. was administered by Pratima Hsieh RN; for sedation; 13:45:29 Zero performed for pressure channel P1 13:45:55 Use device set Radial Dx 13:45:57 Tegaderm 4 x 4 opened to sterile field. 13:45:58 Acist Manifold opened to sterile field. 13:45:59 Acist Hand Control opened to sterile field. 13:46:01 Acist Syringe opened to sterile field. 13:46:01 Medline Cath Pack opened to sterile field. 13:46:02 Bag Decanter opened to sterile field. 13:46:02 Terumo 6Fr Slender Glidesheath opened to sterile field. 13:46:02 St Ayad 260cm J .035 wire opened to sterile field. 13:46:03 MBrace Wrist Support opened to sterile field. 13:47:40 Procedure started. 13:47:46 Local anesthetic to right radial artery with Lidocaine 2% by Tr Jimenez MD.INITIAL ACCESS ONLY 13:49:30 A 6 Fr Short sheath was inserted into the Right Radial artery 13:49:46 Radial Cocktail (Verapomil 2mg/Nitro 400mcg/Heparin 1500units) 1 syringe I.A. was administered by Tr Jimenez MD; for vasodilation; 13:49:52 Fentanyl 50 mcg I.V. was administered by Pratima Hsieh RN; for sedation; 13:49:55 Versed 1 mg I.V. was administered by Pratima Hsieh RN; for sedation; 13:49:59 A Enplugumo 5Fr Pedro Luis 110cm catheter was advanced over the wire and used for Procedure. 13:51:04 LV angiography performed. 13:51:05 LV gram done using MURPHY 13:51:10 EF : 55 % 13:51:12 LV hemodynamics recorded. 13:51:19 Versed 0.5 mg I.V. was administered by Pratima Hsieh RN; for sedation; 13:51:30 Injector settings: Ml/sec: 7, Volume: 15, 13:52:00 LCA angiography performed. 13:52:28 Versed 0.5 mg I.V. was administered by Pratima Hsieh RN; for sedation; 13:53:19 RCA angiography performed. 13:53:33 Catheter exchanged over wire. 13:56:26 Cook 21G 4cm Radial Needle opened to sterile field. 13:56:26 CordVirdocs Software 6FR XBLAD 3.5 guide catheter opened to sterile field. 13:56:27 Mass MosaicixCompak Inflation Kit opened to sterile field. 13:56:27 High Pressure Extension Tubing (Tony) opened to sterile field. 13:56:27 Rodriguez BMW Fraser 2 J-tip 300cm 0.014 guide wir opened to sterile field. 13:56:41 6 Fr XBLAD 3.5 guide catheter was inserted over the wire 13:56:50 Study PCI Site: [place] OM1 has 90% stenosis. 13:56:57 ACC Pre-intervention ALLEN Flow is 3. 13:58:39 BMW wire advanced. 13:59:56 Wire advanced across lesion. 14:01:20 Heparin Bolus 04277 units I.V. was administered by Pratima Hsieh RN; for anticoagulation; verified heparin bolus with dr. jimenez 14:04:31 Inflation Number: 1 A Medtronic Integrity 2.5 X 12 stent was prepped and advanced across the 1st Ob Juliette. The stent was deployed at 12 ALFREDITO for 0:10 (min:sec). 14:05:16 ACC Post-intervention ALLEN Flow is 3. 14:05:17 Stent catheter was removed intact over wire. 14:05:19 Wire removed. 14:05:20 Guide catheter removed. 14:06:01 Sheath removed intact; hemostasis achieved with Mechanical Compression to the Right Radial artery. 14:06:08 Terumo TR Band Standard opened to sterile field. 14:06:09 Procedure ended.(Physican Out) 14:06:22 Fluoroscopy time 04.40 minutes. 14:06:25 Flurop Dose total: 975 14:06:25 Fluoroscopy dose: 975 mGy 14:06:29 Contrast amount:Isovue 300 108ml. 14:06:30 Sharps counted by scrub and verified by R.N. 14:06:31 Insertion/operative site no bleeding no hematoma. 14:06:34 TR band inflated with 12cc of air. 14:06:59 Post Procedure Pulses reassessed and unchanged 14:07:02 Post-procedure physical assessment completed. ASA score P 2 - A patient with mild systemic disease as per Tr Jimenez MD. 14:07:05 Post procedure rhythm: unchanged. 14:07:08 Estimated blood loss: 10 ml 14:07:36 Post procedure instruction explained to patient.Patient verbalizes understanding. 14:07:37 Patient needs reinforcement of post procedure teaching. 14:07:44 Procedure type changed to Cath procedure, Diagnostic procedure, LHC, LHC w/Coronaries, PCI procedure, Coronary Stent Initial, Miscellaneous Procedures, Moderate Sedation up to 15 minutes 14:07:45 Procedure and supply charges have been captured, reviewed, submitted and are correct. 14:07:48 Procedure Complication : No complications 14:13:11 Vital chart was stopped 14:13:12 See physician's report for complete and final results. 14:13:16 Report given to Pre/Post Procedure Room. 14:13:18 Patient transfered to Pre/Post Procedure Room with Stretcher. 14:13:21 Procedure ended. 14:13:21 Full Disclosure recording stopped 14:13:26 End room use (Document Last) Intervention Summary Intervention Notes Time ActionType Lesion and Equipment Action# Pressure Duration Attributes Used 14:04:31 Place stent 1st Ob Juliette Medtronic 1 12 00:10 Integrity 2.5 X 12 stent Device Usage Item Name Manufacture Quantity Catalog Hospital Part Current Minimal Lot# / Number Charge Number Stock Stock Serial# Code Tegaderm 4 3M 1 [id number] [id number] 090224 5 x 4 Acist Acist 1 90962 470602 968724 986406 5 Proenza Schouer [facility] Acist Hand Acist 1 01370 103418 587147 452303 5 Control Medical Systems Inc Acist Acist 1 17060 547644 595968 645712 20 Syringe Medical Systems Inc Medline Cardinal 1 [id number] 369056 04284 587842 5 Cath Pack Health Bag Microtek 1 2002S 701417 79613 123773 5 Decanter Medical Inc. Terumo 6Fr Terumo 1 [id number] 562288 904813 482710 [address] Ay[address] St Ayad 1 722735 033037 028337 125029 30 260cm J .035 wire MBrace Advanced 1 140-0250-00 425013 06566 484557 5 Wrist Vascular Support Dynamics Terumo 5Fr Terumo 1 40-0776 015438 444557 119508 5 Pedro Luis 110cm catheter Cordis 6FR Cardinal 1 [id number] 498230 150088 253985 10 XBLAD 3.5 Health guide catheter Merit Merit 1 [id number] 381478 570036 204273 15 LiveNinja Medical Inflation Kit High Merit 1 [id number] 197457 00517 996134 10 Pressure Medical Extension Tubing (Jimenez) Rodriguez BMW Rodriguez 1 [id number] 710207 924025 635739 5 Fraser 2 Vascular J-tip 300cm 0.014 guide wir Medtronic Medtronic 1 [id number] 530645 861814 3 [id number] Integrity 2.5 X 12 stent Terumo TR Terumo 1 [id number] 078482 610978 155309 40 Band Standard Cook 21G Cook [facility] 1 [id number] 539767 480631 447520 5 4cm Radial Needle Signature Audit [place] Stage Time Signature Unsigned Intra-Procedure 04/28/2017 Mynor Angel 2:14:27 PM RT(R) Signatures Monitor : Mynor Angel RT Signature : Date : Time : [facility] [address] [place] [address]
[~2017-04-28 10:54] MED LIST changes: +BAYER CHEWABLE81 MG PO; +BETAPACE 80 MG80 MG PO; +COZAAR100 MG PO; +PLAVIX75 MG PO
[2017-04-28 11:24] VITALS: BP 154/100; BMI 34.6
[2017-04-28 11:43] LABS: BASOPHILS 0.5 % (0-2); EOSINOPHILS 5.8 % (0-7); HEMATOCRIT 46.9 % (42.0-54.0); HEMOGLOBIN 16.3 g/dL (13.5-17.5); IMMATURE GRANULOCYTES 0.5 % (0-5); LYMPHOCYTES 22.9 % (15-50); MCH 32.5 pg (26.0-34.0); MCHC 34.8 g/dL (31.0-37.0); MCV 93.6 fL (80.0-100.0); MONOCYTES 11.3 % (2-11); PLATELET COUNT 167 10x3/uL (130-400); RBC 5.01 10x6/uL (4.20-6.10); RDW 12.4 % (11.5-14.5); WBC 5.9 10x3/uL (4.8-10.8)
[2017-04-28 11:59] LABS: CALCIUM 9.4 mg/dL (8.5-10.1); CARBON DIOXIDE 29.7 mmol/L (21.0-32.0); CREATININE - SERUM 1.4 mg/dL (0.6-1.3); POTASSIUM - SERUM 4.7 mmol/L (3.5-5.1)
== END | disposition home or self-care (01) ==
LOC: D.CATH 10:54
PROVIDERS: Internal Medicine Cardiovascular Disease
DX: I25.110 Atherosclerotic heart disease of native coronary artery with unstable angina pectoris (principal); Z95.5 Presence of coronary angioplasty implant and graft; Z01.812 Encounter for preprocedural laboratory examination

== ENCOUNTER 2017-07-10 15:06 | Emergency (ER) | payer BC ==
[2017-04-28 11:24] VITALS: BMI 34.6
== END 2017-07-10 16:50 | disposition home or self-care (01) ==
LOC: D.ER 15:06
DX: S06.0X9A Concussion with loss of consciousness of unspecified duration, initial encounter (principal); W17.89XA Other fall from one level to another, initial encounter; Y93.89 Activity, other specified; Y92.019 Unspecified place in single-family (private) house as the place of occurrence of the external cause

== ENCOUNTER 2017-12-07 12:01 | Outpatient (CLI) | payer BC ==
[~2017-12-07] VITALS: Ht 182.9 cm; Wt 104.5 kg
--- NOTE | ~2017-12-07 | HEMODYNAMI ---
PATIENT:ADRIANA MASON MEDICAL RECORD: [id number] : 51 LOCATION:D.CAT ADMISSION DATE: 12/07/17 Generatedon:12/07/201714:38 Patient name: ADRIANA MASON Patient #: [id number] SSN: : 1955 Date of study: 12/07/2017 Page: Of Hemodynamic Procedure Report Patient Data Patient Demographics Procedure consent was obtained First Name: ADRIANA Gender: Male Last Name: ISABELLA : 1955 Middle Initial: M Age: 62 year(s) Patient #: [id number] Race: Additional ID: [id number] Contact details [address]: [address] [place] [address] State: [place] City: [place] Zip code: [address] Past Medical History Allergies: No known allergies Admission Admission Data Admission Date: 12/07/2017 Admission Time: 12:01 Admit Source: Other Height (in.): 5.11 BSA: 0.33 (m2) Height (cm.): 12.98 BMI: 6192.76 (kg/m2) Weight (lbs.): 230 Weight (kg.): 104.33 Lab Results Lab Result Date: 12/07/2017 Lab Result Time: 12:45 Biochemistry Name Units Result Min Max BUN mg/dl 19 --(----)*- 7 18 Creatinine mg/dl 1.2 --(---*)-- 0.6 1.3 CBC Name Units Result Min Max Hematocrit % 49.2 --(--*-)-- 42 54 Hemoglobin g/dl 17 --(---*)-- 13.5 17.5 Procedure Procedure Types Cath Procedure Diagnostic Procedure C [facility] w/Coronaries Sedation Charges Moderate Sedation up to 15 minutes PCI Procedure PTCA PTCA Initial Procedure Description Procedure Date Procedure Date: 12/07/2017 Procedure Start Time: 14:11 Procedure End Time: 14:35 Procedure Staff Name Function Tr Jimenez MD Performing Physician Soto Lopez RN Nurse Thad Johnson RT Scrub [facility] RT Monitor Procedure Data Cath Procedure Fluoroscopy Diagnostic fluoroscopy Total fluoroscopy Time: 5.1 time: 5.1 min min Diagnostic fluoroscopy Total fluoroscopy dose: 969 dose: 969 mGy mGy Contrast Material Contrast Material Type Amount (ml) Isovue 300 96 Entry Location Entry Primary Successful Side Size Upsize Upsize Entry Closure Marquez ccessful Closure Location (Fr) 1 (Fr) 2 (Fr) Remarks Device Remarks Radial Right 6 Fr Mechanical artery Short Compression Estimated blood loss: 10 ml Diagnostic catheters Device Type Used For End Catheter Placement DIAGNOSTIC Pedro Luis 110cm Procedure 5Fr catheter ([id number]) Procedure Complications No complications Procedure Medications Medication Administration Route Dosage 0.9% NaCl I.V. 100 ml/hr Oxygen etCO2 Nasal cannula 2 l/min Heparin Flush Bag added to field 2 bags (1000units/500ml NS) Lidocaine 2% added to field 20 Radial Cocktail added to field 1 syringe (Verapomil 2mg/Nitro 400mcg/Heparin 1500units) Versed I.V. 2 mg Fentanyl I.V. 100 mcg Versed I.V. 1 mg Radial Cocktail I.A. 1 syringe (Verapomil 2mg/Nitro 400mcg/Heparin 1500units) Versed I.V. 1 mg Heparin Bolus I.V. 30215 units Plavix P.O. 600 mg Hemodynamics Rest BSA: 0.33 (m2) HGB: 17 (g/dl) O2 Consumption: Estimated: 38.62 (ml/min) O2 Consu mption indexed: Estimated:117.03 (ml/min/m) Heart Rate: 71 (bpm) Pressure Samples Time Site Value (mmHg) Purpose Heart Use Rate(bpm) 14:16 LV 140/-19,3 Snapshot 84 14:16 AO 90/58(68) Pullback 79 14:16 LV 112/-14,3 Pullback 79 Gradients Valve Time Site 1 Site 2 Mean SEP/DFP Peak To Heart Use (mmHg) (sec/min) Peak Rate (mmHg) (bpm) Aortic 14:16 LV AO 11 18 22 79 112/-14,3 90/58(68) Calculations Valve P-P Mean Valve Index Valve Source Name Gradient Area Flow (cm2) Aortic 22 11 22 11 Snapshots Pre Cath Intra NCS Post Cath Vital Signs Time Heart Resp SPO2 etCO2 NIBP (mmHg) Rhythm Pain Sedation Rate (ipm) (%) (mmHg) Status Level (bpm) 13:41:01 74 12 93 0 152/97(119) NSR 0 (11) 10(A) , No pain 13:45:41 77 23 94 27.6 145/92(122) NSR 0 (11) 10(A) , No pain 13:50:20 80 15 95 32.8 136/89(105) NSR 0 (11) 10(A) , No pain 13:55:01 80 16 98 22.4 129/85(109) NSR 0 (11) 10(A) , No pain 13:59:41 76 16 91 30.6 139/76(97) NSR 0 (11) 10(A) , No pain 14:04:20 80 17 97 18.6 126/80(99) NSR 0 (11) 10(A) , No pain 14:09:00 74 18 95 123/73(98) NSR 0 (11) 10(A) , No pain 14:13:39 78 18 93 12.7 122/85(98) NSR 0 (11) 9(A) , No pain 14:18:17 84 20 93 24.6 122/69(86) NSR 0 (11) 10(A) , No pain 14:22:56 80 12 94 35.8 116/79(94) NSR 0 (11) 10(A) , No pain 14:27:35 76 19 92 24.6 123/70(88) NSR 0 (11) 10(A) , No pain 14:32:13 77 18 92 24.6 123/71(90) NSR 0 (11) 10(A) , No pain Medications Time Medication Route Dose Verified Delivered Reason Not es Effectiveness by by 13:43:00 0.9% NaCl I.V. 100 Soto Soto Per physician ml/hr John Lopez RN RN 13:43:11 Oxygen etCO2 2 l/min Soto Soto Per physician Nasal John Lopez cannula RN RN 13:43:24 Heparin Flush added 2 bags Soto Soto used for Bag to John Lopez procedure (1000units/500ml field RN RN NS) 13:43:35 Lidocaine 2% added 20ml Soto Soto for local to vial Lorigan Lorigan anesthetic RN RN 13:43:57 Radial Cocktail added 1 Soto Soto for (Verapomil to syringe John Lopez vasodilation 2mg/Nitro field RN RN 400mcg/Heparin 1500units) 14:06:46 Versed I.V. 2 mg Soto Soto for sedation John Lopez RN RN 14:06:57 Fentanyl I.V. 100 mcg Soto Soto for sedation John Lopez RN RN 14:10:55 Versed I.V. 1 mg Soto Soto for sedation John Lopez RN RN 14:15:02 Radial Cocktail I.A. [address] for (Verapomil syringe John Jimenez MD vasodilation 2mg/Nitro RN 400mcg/Heparin 1500units) 14:25:48 Versed I.V. 1 mg Soto Soto for sedation John Lopez RN RN 14:26:07 Heparin Bolus I.V. 10,000 Soto Soto for units John Lopez anticoagulation RN RN 14:35:06 Plavix P.O. 600 mg Soto Soto for John Lopez antiplatelet RN RN therapy Procedure Log Time Note 13:12:44 Informed consent obtained and on chart 13:12:47 Admit Source: Other 13:13:12 Diagnostic Cath status Elective 13:13:13 Time tracking: Regular hours (M-F 7:00 - 5:00) 13:13:17 Plan of Care:Hemodynamics will remain stable., Cardiac rhythm will remain stable., Comfort level will be maintained., Respiratory function will remain adequate., Patient/ family verbilizes understanding of procedure., Procedure tolerated without complication., Recovers from procedure without complications.. 13:13:25 H&P Date Dictated: 12/06/2017 Within 30 days and on chart., H&P Addendum completed by physician on day of procedure. (MUST COMPLETE FOR ALL OUTPATIENTS). 13:15:18 Soto Lopez RN sent for patient. Start room use. 13:23:23 Lab Result : Creatinine 1.2 mg/dl 13:23:23 Lab Result : BUN 19 mg/dl 13:23:23 Lab Result : Hemoglobin 17 g/dl 13:23:23 Lab Result : Hematocrit 49.2 % 13:28:29 Patient received from Pre/Post Procedure Room to CCL 1 Alert and oriented. Tansferred to table in Supine position. 13:28:30 Warm blankets applied, and gabriella hugger turned on for patient comfort. 13:28:55 Correct patient and procedure confirmed by team. 13:28:55 ECG and BP/O2 sat monitors applied to patient. 13:28:56 Pre-procedure instructions explained to patient. 13:28:56 Pre-op teaching completed and patient verbalized understanding. 13:28:58 Family in waiting room. 13:28:59 Patient NPO since Midnight. 13:29:08 Patient allergic to No known allergies 13:40:11 Vital chart was started 13:40:13 Baseline sample Acquired. 13:40:16 Rhythm: sinus rhythm 13:40:18 Full Disclosure recording started 13:40:28 Is the patient allergic to Iodine/contrast media? No. 13:40:30 Is patient on blood thinner?No 13:40:31 Patient diabetic? No. 13:40:35 Previous problem with sedation/anesthesia? No ? 13:40:36 Snore? Yes 13:40:37 Sleep apnea? Yes 13:40:38 Deviated septum? No 13:40:39 Opens mouth fully? Yes 13:40:40 Sticks out tongue? Yes 13:40:42 Airway obstruction? No ? 13:40:44 Dentures? No ? 13:40:48 Pre procedure: right dorsailis pedis pulse 2+ Normal; easily identifiable; not easily obliterated 13:40:49 Modified Jeffrey's test Ulnar < 7 seconds 13:40:51 Patient pain scale 0/10 ?. 13:41:14 IV patent on arrival in left antecubital with 0.9% NaCl at O. 13:41:16 Lab results completed and on chart. 13:41:19 Right Radial & Right Groin area was prepped with chlora-prep and draped in sterile fashion 13:41:20 Alarms reviewed by R. N. 13:41:20 Sharps counted by scrub and verified by R.N. 13:41:23 Use device set Radial Dx or PCI 13:41:25 ACIST Syringe (29622) opened to sterile field. 13:41:25 Medline Cath Pack ([id number]) opened to sterile field. 13:41:25 Bag Decanter (2002) opened to sterile field. 13:41:26 ACIST Manifold (41894) opened to sterile field. 13:41:27 ACIST Hand Control (43303) opened to sterile field. 13:41:27 Tegaderm 4 x 4 (1626W) opened to sterile field. 13:41:28 MBrace Wrist Support ([id number]) opened to sterile field. 13:41:30 SHEATH 6Fr Prelude Radial ([id number]) opened to sterile field. 13:41:31 DIAGNOSTIC WIRE .035 260cm J wire (592560) opened to sterile field. 13:43:00 0.9% NaCl 100 ml/hr I.V. was administered by Soto Lopez RN; Per physician; 13:43:11 Oxygen 2 l/min etCO2 Nasal cannula was administered by Soto Lopez RN; Per physician; 13:43:24 Heparin Flush Bag (1000units/500ml NS) 2 bags added to field was administered by Soto Lopez RN; used for procedure; 13:43:35 Lidocaine 2% 20ml vial added to field was administered by Soto Lopez RN; for local anesthetic; 13:43:57 Radial Cocktail (Verapomil 2mg/Nitro 400mcg/Heparin 1500units) 1 syringe added to field was administered by Soto Lopez RN; for vasodilation; 14:02:03 Zero performed for pressure channel P1 14:04:26 Patient Height : 5.11 inches 14:04:30 Patient Weight : 230 lbs 14:06:00 --------ALL STOP TIME OUT------ 14:06:01 Final Timeout: patient, procedure, and site verified with staff and physician. All members of the team are in agreement. 14:06:06 Right Radial & Right Groin site verified by team. 14:06:09 Physical assessment completed. ASA score P 2 - A patient with mild systemic disease as per Tr Jimenez MD. 14:06:18 Sedation plan: IV Moderate Sedation Medication:Versed, Fentanyl 14:06:46 Versed 2 mg I.V. was administered by Soto Lopez RN; for sedation; 14:06:57 Fentanyl 100 mcg I.V. was administered by Soto Lopez RN; for sedation; 14:10:55 Versed 1 mg I.V. was administered by Soto Lopez RN; for sedation; 14:11:08 Zero performed for pressure channel P1 14:11:17 Procedure started. 14:11:34 Local anesthetic to right radial artery with Lidocaine 2% by Tr Jimenez MD.INITIAL ACCESS ONLY 14:14:00 A 6 Fr Short sheath was inserted into the Right Radial artery 14:14:20 A DIAGNOSTIC Pedro Luis 110cm 5Fr catheter ([id number]) was advanced over the wire and used for Procedure. 14:15:02 Radial Cocktail (Verapomil 2mg/Nitro 400mcg/Heparin 1500units) 1 syringe I.A. was administered by Tr Jimenez MD; for vasodilation; 14:15:31 LV gram done using MURPHY 14:15:34 Injector settings: Ml/sec: 5, Volume: 15, 14:16:07 LV hemodynamics recorded. 14:16:30 EF : 60 % 14:17:29 LCA angiography performed. 14:19:35 RCA angiography performed. 14:21:54 Catheter exchanged over wire. 14:22:25 INFLATOR Merit BasixCompak (WZ2650) opened to sterile field. 14:22:36 BMW 300cm Straight [place] 2 wire ([id number]) opened to sterile field. 14:22:47 TUBING High Pressure Extension Tubing (Tony) ([id number]) opened to sterile field. 14:23:09 GUIDE 6FR EBU 3.75 catheter ([id number]) opened to sterile field. 14:24:09 6 Fr EBU 3.75 guide catheter was inserted over the wire 14:25:48 Versed 1 mg I.V. was administered by Soto Lopez RN; for sedation; 14:26:05 BMW 300 wire advanced. 14:26:07 Heparin Bolus 10,000 units I.V. was administered by Soto Lopez RN; for anticoagulation; 14:27:08 Wire advanced across lesion. 14:30:08 Inflate balloon Inflation number: 1 A EMERGE OTW 2.5 x 12 balloon ([id number]) was prepped and advanced across the 1st Ob Juliette, then inflated to 10 ALFREDITO for 0:10 (min:sec). 14:32:09 Balloon removed over the wire. 14:32:10 Wire removed. 14:32:10 Guide catheter removed. 14:32:14 TR BAND Standard ([id number]) opened to sterile field. 14:33:05 Procedure ended.(Physican Out) 14:33:22 Sheath removed intact; hemostasis achieved with Mechanical Compression to the Right Radial artery. 14:33:27 Fluoroscopy time 05.10 minutes. 14:33:31 Fluoroscopy dose: 969 mGy 14:33:31 Flurop Dose total: 969 14:33:34 Contrast amount:Isovue 300 96ml. 14:33:36 Sharps counted by scrub and verified by R.N. 14:33:40 TR band inflated with 8cc of air. 14:33:45 Post-procedure physical assessment completed. ASA score P 2 - A patient with mild systemic disease as per Tr Jimenez MD. 14:33:49 Post procedure rhythm: unchanged. 14:33:52 Estimated blood loss: 10 ml 14:33:53 Post procedure instruction explained to patient.Patient verbalizes understanding. 14:33:54 Patient needs reinforcement of post procedure teaching. 14:34:37 Procedure type changed to Cath procedure, Diagnostic procedure, LHC, LHC w/Coronaries, Sedation Charges, Moderate Sedation up to 15 minutes, PCI procedure, PTCA, PTCA Initial 14:35:06 Plavix 600 mg P.O. was administered by Soto Lopez RN; for antiplatelet therapy; 14:35:13 Procedure and supply charges have been captured, reviewed, submitted and are correct. 14:35:16 Procedure Complication : No complications 14:35:18 Vital chart was stopped 14:35:19 See physician's report for complete and final results. 14:35:20 Report given to Pre/Post Procedure Room. 14:35:24 Patient transfered to Pre/Post Procedure Room with Bed. 14:35:26 Procedure ended. 14:35:26 Full Disclosure recording stopped 14:35:33 End room use (Document Last) Intervention Summary Intervention Notes Time ActionType Lesion and Equipment Action# Pressure Duration Attributes Used 14:30:08 Inflate 1st Ob Juliette EMERGE OTW 1 10 00:10 balloon 2.5 x 12 balloon ([id number]) Device Usage Item Name Manufacture Quantity Catalog Number Hospital Part Current Minimal Lot# / Charge Number Stock Stock Serial# Code ACIST Syringe Acist 1 43939 037645 966779 764348 20 (51328) Tinybeans Medline Cath Cardinal 1 [id number] 453318 56753 959366 5 Pack [facility] ([id number]) Bag Decanter Microtek 1 2001S 766080 20100 057627 5 (2001S) Medical Inc. ACIST Manifold Acist 1 49493 018562 216962 019125 5 (29780) Medical Systems Inc ACIST Hand Acist 1 33969 012331 053554 191776 5 Control (79045) Medical Systems Inc Tegaderm 4 x 4 3M 1 1626W 685658 084861 013838 5 (1626W) MBrace Wrist Advanced 1 140-0250-00 485443 77559 480375 5 Support Vascular ([id number]) Dynamics SHEATH 6Fr Merit 1 [id number] 927054 094085 512445 5 Prelude Radial Medical ([id number]) DIAGNOSTIC WIRE St Ayad 1 502557 011886 363034 641129 30 .035 260cm J wire (848037) DIAGNOSTIC Terumo 1 40-9048 617088 619886 244010 5 Pedro Luis 110cm 5Fr catheter (003288) INFLATOR Merit Merit 1 [id number] 075597 650480 180779 15 BasixCompak Medical ([id number]) BMW 300cm Rodriguez 1 [id number] 658963 469582 160735 5 Straight Vascular [place] 2 wire (1922483) TUBING High Merit 1 [id number] 674215 01473 124243 10 Pressure Medical Extension Tubing (Jimenez) ([id number]) GUIDE 6FR EBU Medtronic 1 [id number] 891552 62043 875340 1 3.75 catheter ([id number]) EMERGE OTW 2.5 [place] 1 [id number] 101653 905172 079415 5 [id number] x 12 balloon Scientific ([id number]) TR BAND Terumo 1 [id number] 068022 945189 913450 40 Standard ([id number]) Signature Audit [place] Stage Time Signature Unsigned Intra-Procedure 12/07/2017 Jacquelyn Medina 2:38:39 PM RT(R) Signatures Monitor : Jacquelyn Medina Signature : RT Date : Time : [facility] [address] [place] [address]
[2017-12-07 12:46] VITALS: BP 129/81; Ht 182.9 cm; Wt 104.5 kg
[2017-12-07 13:05] LABS: BASOPHILS 0.2 % (0-2); EOSINOPHILS 2.8 % (0-7); HEMATOCRIT 49.2 % (42.0-54.0); IMMATURE GRANULOCYTES 0.4 % (0-5); LYMPHOCYTES 9.7 % (15-50); MCH 32.4 pg (26.0-34.0); MCHC 34.6 g/dL (31.0-37.0); MCV 93.7 fL (80.0-100.0); MEAN PLATELET VOLUME 9.9 fL (7.4-10.4); NEUTROPHILS 75.9 % (40-80); RBC 5.25 10x6/uL (4.20-6.10); RDW 12.6 % (11.5-14.5); WBC 5.4 10x3/uL (4.8-10.8)
[2017-12-07 13:16] LABS: PLATELET COUNT 127 10x3/uL (130-400)
[2017-12-07 13:18] LABS: ANION GAP 11.8 mmol/L (8-16); CALCIUM 8.5 mg/dL (8.5-10.1); CARBON DIOXIDE 23.9 mmol/L (21.0-32.0); CREATININE - SERUM 1.2 mg/dL (0.6-1.3); POTASSIUM - SERUM 4.7 mmol/L (3.5-5.1)
== END 2017-12-07 18:50 | disposition home or self-care (01) ==
LOC: D.CATH 12:01
PROVIDERS: Internal Medicine Cardiovascular Disease
DX: I25.119 Atherosclerotic heart disease of native coronary artery with unspecified angina pectoris (principal); T82.855A Stenosis of coronary artery stent, initial encounter; Z01.812 Encounter for preprocedural laboratory examination

== ENCOUNTER → 2018-09-29 09:11 | Outpatient (CLI) | payer BC ==
[2017-12-07 12:46] VITALS: BMI 31.2
[~2018-09-29 09:11] MED LIST changes: +ASPIRIN81 MG
== END | disposition home or self-care (01) ==
LOC: D.HCCARDIO 09:11
PROVIDERS: ATTEND Internal Medicine Cardiovascular Disease
DX: I25.10 Atherosclerotic heart disease of native coronary artery without angina pectoris (principal)

== ENCOUNTER 2018-10-04 11:00 | Outpatient (CLI) | payer BC, MEDICARE ==
[~2018-10-04] VITALS: Ht 182.9 cm; Wt 109.1 kg
--- NOTE | ~2018-10-04 | HEMODYNAMI ---
PATIENT:ADRIANA MASON MEDICAL RECORD: [id number] : 51 LOCATION:D.CAT ADMISSION DATE: 10/04/18 Generatedon:10/04/201813:46 Patient name: ADRIANA MASON Patient #: [id number] SSN: : 1955 Date of study: 10/04/2018 Page: Of Hemodynamic Procedure Report Patient Data Patient Demographics Procedure consent was obtained First Name: ADRIANA Gender: Male Last Name: ISABELLA : 1955 Middle Initial: M Age: 63 year(s) Patient #: [id number] Race: Additional ID: [id number] Contact details [address]: [address] [place] [address] State: [place] City: [place] Zip code: [address] Past Medical History Allergies: No known allergies Admission Admission Data Admission Date: 10/04/2018 Admission Time: 11:00 Height (in.): 72 BSA: 2.33 (m2) Height (cm.): 182.88 BMI: 33.5 (kg/m2) Weight (lbs.): 247 Weight (kg.): 112.04 Lab Results Lab Result Date: 10/04/2018 Lab Result Time: 0:00 Biochemistry Name Units Result Min Max BUN mg/dl 18 --(---*)-- 7 18 Creatinine mg/dl 1.3 --(---*)-- 0.6 1.3 CBC Name Units Result Min Max Hematocrit % 49.3 --(--*-)-- 42 54 Hemoglobin g/dl 17.4 --(---*)-- 13.5 17.5 Procedure Procedure Types Cath Procedure Diagnostic Procedure [facility] w/Coronaries Sedation Charges Moderate Sedation up to 30 minutes PCI Procedure Coronary Stent Coronary Stent Initial Procedure Description Procedure Date Procedure Date: 10/04/2018 Procedure Start Time: 13:14 Procedure End Time: 13:43 Procedure Staff Name Function Tr Jimenez MD Performing Physician Jacquelyn Medina RT Monitor Thad Johnson RT Scrub Karson Curtis RN Nurse Panchito Chairez RN Nurse Procedure Data Cath Procedure Fluoroscopy Diagnostic fluoroscopy Total fluoroscopy Time: 5.9 time: 5.9 min min Diagnostic fluoroscopy Total fluoroscopy dose: dose: 1436 mGy 1436 mGy Contrast Material Contrast Material Type Amount (ml) Isovue 300 141 Entry Location Entry Primary Successful Side Size Upsize Upsize Entry Closure Marquez ccessful Closure Location (Fr) 1 (Fr) 2 (Fr) Remarks Device Remarks Radial Right 6 Fr Mechanical artery Short Compression Estimated blood loss: 10 ml Diagnostic catheters Device Type Used For End Catheter Placement DIAGNOSTIC Pedro Luis 110cm Procedure 5Fr catheter ([id number]) DIAGNOSTIC Mecca 110cm 5 Procedure Fr catheter ([id number]) Procedure Complications No complications Procedure Medications Medication Administration Route Dosage Oxygen etCO2 Nasal cannula 2 l/min Lidocaine 2% added to field 20 Heparin Flush Bag added to field 2 bags (1000units/500ml NS) 0.9% NaCl I.V. 100 ml/hr Radial Cocktail added to field 1 syringe (Verapomil 2mg/Nitro 400mcg/Heparin 1500units) Versed I.V. 1 mg Fentanyl I.V. 50 mcg Versed I.V. 1 mg Fentanyl I.V. 50 mcg Versed I.V. 1 mg Fentanyl I.V. 50 mcg Heparin Bolus I.V. 90410 units Nitroglycerin IC/IA I.C. 100 mcg Versed I.V. 0.5 mg Fentanyl I.V. 25 mcg Plavix P.O. 600 mg Hemodynamics Rest BSA: 2.33 (m2) HGB: 17.4 (g/dl) O2 Consumption: Estimated: 272.71 (ml/min) O2 Co nsumption indexed: Estimated:117.04 (ml/min/m) Heart Rate: 71 (bpm) Pressure Samples Time Site Value (mmHg) Purpose Heart Use Rate(bpm) 13:20 LV 141/-3,10 Snapshot 70 Gradients Valve Time Site Site Mean SEP/DFP Peak To Heart Use 1 2 (mmHg) (sec/min) Peak Rate (mmHg) (bpm) Aortic 13:20 LV AO 41 Snapshots Pre Cath Intra NCS Post Cath Vital Signs Time Heart Resp SPO2 etCO2 NIBP (mmHg) Rhythm Pain Sedation Rate (ipm) (%) (mmHg) Status Level (bpm) 13:03:35 68 20 93 30.2 148/93(128) NSR 0 (11) 10(A) , No pain 13:07:49 65 19 92 29.4 133/84(114) NSR 0 (11) 10(A) , No pain 13:11:59 73 15 94 0 129/84(106) NSR 0 (11) 10(A) , No pain 13:16:07 63 22 93 0 130/79(104) NSR 0 (11) 9(A) , No pain 13:20:19 174 19 96 15.1 133/73(99) NSR 0 (11) 9(A) , No pain 13:24:33 72 14 92 31.7 132/71(103) NSR 0 (11) 9(A) , No pain 13:28:47 73 14 95 1.5 121/72(91) NSR 0 (11) 9(A) , No pain 13:32:57 70 14 95 27.2 117/69(91) NSR 0 (11) 9(A) , No pain 13:37:04 67 13 96 13.6 124/68(101) NSR 0 (11) 9(A) , No pain 13:41:14 71 17 96 18.1 123/71(101) NSR 0 (11) 10(A) , No pain Medications Time Medication Route Dose Verified Delivered Reason Not es Effectiveness by by 13:02:00 Oxygen etCO2 2 l/min Tr Buffie used for Nasal Tony Curtis RN procedure cannula 13:02:06 Lidocaine 2% added 20ml Tr Tr used for to vial Tony Jimenez MD procedure field 13:02:12 Heparin Flush added 2 bags Tr Tr used for Bag to Tony Jimenez MD procedure (1000units/500ml field NS) 13:02:21 0.9% NaCl I.V. 100 Tr Buffie Per physician ml/hr Tony Curtis RN 13:10:07 Versed I.V. 1 mg Tr Buffie for sedation Tony Curtis RN 13:10:13 Fentanyl I.V. 50 mcg Tr Buffie for sedation Tony Curtis RN 13:10:32 Fentanyl I.V. 50 mcg Tr Buffie for sedation Tony Curtis RN 13:15:28 Versed I.V. 1 mg Tr Buffie for sedation Tony Curtis RN 13:19:56 Versed I.V. 1 mg Tr Buffie for sedation Tony Curtis RN 13:19:59 Fentanyl I.V. 50 mcg Tr Buffie for sedation Tony Curtis RN 13:20:08 Radial Cocktail added 1 Tr Tr for (Verapomil to syringe Tony Jimenez MD vasodilation 2mg/Nitro field 400mcg/Heparin 1500units) 13:29:22 Heparin Bolus I.V. 11,000 Tr Buffie for leonid ified units Tony Curtis RN anticoagulation with dr jimenez 13:33:40 Versed I.V. 0.5 mg Tr Buffie for sedation Tony Curtis RN 13:33:45 Fentanyl I.V. 25 mcg Tr Buffie for sedation Tony Curtis RN 13:38:38 Nitroglycerin I.C. 100 mcg Tr Tr for IC/IA Tony Jimenez MD vasodilation 13:44:29 Plavix P.O. 600 mg Tr Buffie for Tony Curtis RN antiplatelet therapy Procedure Log Time Note 12:41:47 Signed procedure consent form obtained from patient. 12:41:49 Time tracking: Regular hours (M-F 7:00 - 5:00) 12:41:53 Plan of Care:Hemodynamics will remain stable., Cardiac rhythm will remain stable., Comfort level will be maintained., Respiratory function will remain adequate., Patient/ family verbilizes understanding of procedure., Procedure tolerated without complication., Recovers from procedure without complications.. 12:42:05 Thad GIRARD(R) sent for patient. Start room use. 12:42:53 H&P Date Dictated: 09/14/2018 Within 30 days and on chart., H&P Addendum completed by physician on day of procedure. (MUST COMPLETE FOR ALL OUTPATIENTS). 12:43:00 Patient allergic to No known allergies 12:43:13 Patient Height : 72 inches 12:43:16 Patient Weight : 247 lbs 12:48:09 Lab Result : BUN 18 mg/dl 12:48:09 Lab Result : Hemoglobin 17.4 g/dl 12:48:09 Lab Result : Creatinine 1.3 mg/dl 12:48:09 Lab Result : Hematocrit 49.3 % 12:48:30 Patient allergic to No known allergies 12:49:40 Patient received from Pre/Post Procedure Room to CCL 2 Alert and oriented. Tansferred to table in Supine position. 12:49:41 Warm blankets applied, and gabriella hugger turned on for patient comfort. 12:49:41 Correct patient and procedure confirmed by team. 12:49:43 ECG and BP/O2 sat monitors applied to patient. 13:02:00 Oxygen 2 l/min etCO2 Nasal cannula was administered by Karson Curtis RN; used for procedure; 13:02:06 Lidocaine 2% 20ml vial added to field was administered by Tr Jimenez MD; used for procedure; 13:02:12 Heparin Flush Bag (1000units/500ml NS) 2 bags added to field was administered by Tr Jimenez MD; used for procedure; 13:02:21 0.9% NaCl 100 ml/hr I.V. was administered by Karson Curtis RN; Per physician; 13:02:26 Vital chart was started 13:02:28 Baseline sample Acquired. 13:02:31 Rhythm: sinus rhythm 13:02:32 Full Disclosure recording started 13:02:32 Pre-op teaching completed and patient verbalized understanding. 13:02:33 Pre-procedure instructions explained to patient. 13:02:34 Family in patients room. 13:02:36 Patient NPO since Midnight. 13:02:37 Is patient on blood thinner?No 13:02:40 Patient diabetic? No. 13:02:45 Snore? Yes 13:02:46 Previous problem with sedation/anesthesia? No ? 13:02:48 Sleep apnea? No 13:02:49 Deviated septum? No 13:02:49 Opens mouth fully? Yes 13:02:50 Sticks out tongue? Yes 13:02:52 Airway obstruction? No ? 13:02:53 Dentures? No ? 13:03:01 Pre procedure: right dorsailis pedis pulse 2+ Normal; easily identifiable; not easily obliterated 13:03:05 Modified Jeffrey's test Ulnar < 7 seconds 13:03:07 Patient pain scale 0/10 ?. 13:03:12 IV patent on arrival in left hand with 0.9% NaCl at [facility]. 13:03:15 Lab results completed and on chart. 13:03:18 Right Radial & Right Groin area was prepped with chlora-prep and draped in sterile fashion 13:03:19 Alarms reviewed by R. N. 13:03:19 Sharps counted by scrub and verified by R.N. 13:03:22 Use device set Radial Dx or PCI 13:03:23 ACIST Syringe (67011) opened to sterile field. 13:03:24 Medline Cath Pack ([id number]) opened to sterile field. 13:03:26 Bag Decanter (2002S) opened to sterile field. 13:03:28 ACIST Hand Control (42909) opened to sterile field. 13:03:29 ACIST Manifold (65902) opened to sterile field. 13:03:31 Tegaderm 4 x 4 (1626W) opened to sterile field. 13:03:33 DIAGNOSTIC WIRE .035 260cm J wire (072649) opened to sterile field. 13:03:34 MBrace Wrist Support ([id number]) opened to sterile field. 13:03:35 SHEATH 6FR Slender (40-6955) opened to sterile field. 13:03:37 NEEDLE Cook 21G 4cm Radial (C77172) opened to sterile field. 13:04:47 --------ALL STOP TIME OUT------ 13:04:48 Final Timeout: patient, procedure, and site verified with staff and physician. All members of the team are in agreement. 13:04:49 Right Radial & Right Groin site verified by team. 13:04:52 Maximum allowable Isovue 300 dose 300ml. Physician notified. (300ml for normal creatinines. For patients with creatinine of 1.7 or higher multiply weight(kg) x 5 divided by creatinine.) 13:04:55 Fire Safety Assessment: A--An alcohol-based skin anteseptic being used preoperatively., C--Open oxygen or nitrous oxide is being used., D--An ESU, laser, or fiber-optic light is being used. 13:05:00 Physical assessment completed. ASA score P 2 - A patient with mild systemic disease as per Tr Jimenez MD. 13:05:02 Sedation plan: IV Moderate Sedation Medication:Versed, Fentanyl 13:08:20 Zero performed for pressure channel P1 13:10:07 Versed 1 mg I.V. was administered by Buffie Curtis RN; for sedation; 13:10:13 Fentanyl 50 mcg I.V. was administered by Karson Curtis RN; for sedation; 13:10:32 Fentanyl 50 mcg I.V. was administered by Karson Curtis RN; for sedation; 13:13:40 Procedure started. 13:14:10 Local anesthetic to right radial artery with Lidocaine 2% by Tr Jimenez MD.INITIAL ACCESS ONLY 13:15:28 Versed 1 mg I.V. was administered by Karson Curtis RN; for sedation; 13:18:28 A 6 Fr Short sheath was inserted into the Right Radial artery 13:18:59 A DIAGNOSTIC Pedro Luis 110cm 5Fr catheter (541297) was advanced over the wire and used for Procedure. 13:19:52 LV gram done using MURPHY 13:19:55 Injector settings: Ml/sec: 7, Volume: 15, 13:19:56 Versed 1 mg I.V. was administered by Karson Curtis RN; for sedation; 13:19:59 Fentanyl 50 mcg I.V. was administered by Karson Curtis RN; for sedation; 13:20:08 Radial Cocktail (Verapomil 2mg/Nitro 400mcg/Heparin 1500units) 1 syringe added to field was administered by Tr Jimenez MD; for vasodilation; 13:20:10 LV hemodynamics recorded. 13:20:29 EF : 55 % 13:21:21 RCA angiography performed. 13:22:58 Catheter exchanged over wire. 13:23:09 A DIAGNOSTIC Mecca 110cm 5 Fr catheter (987004) was advanced over the wire and used for Procedure. 13:25:16 LCA angiography performed. 13:25:55 Catheter exchanged over wire. 13:26:29 INFLATOR Merit BasixCompak (DJ1582) opened to sterile field. 13:26:29 BMW 300cm Straight [place] 2 wire (7288863) opened to sterile field. 13:26:30 TUBING High Pressure Extension Tubing (Tony) ([id number]) opened to sterile field. 13:26:37 GUIDE 6FR EBU 3.75 catheter ([id number]) opened to sterile field. 13:28:06 6 Fr EBU 3.75 guide catheter was inserted over the wire 13:29:22 Heparin Bolus 11,000 units I.V. was administered by Karson Curtis RN; for anticoagulation; verified with dr jimenez 13:30:46 BMW 300 wire advanced. 13:30:47 Wire advanced across lesion. 13:33:40 Versed 0.5 mg I.V. was administered by Karson Curtis RN; for sedation; 13:33:45 Fentanyl 25 mcg I.V. was administered by Karson Curtis RN; for sedation; 13:34:16 Place stent Inflation Number: 1 A OSCAR OTW 3.5 x 15 stent ([id number]) was prepped and advanced across the Mid LAD. The stent was deployed at 14 ALFREDITO for 0:10 (min:sec). 13:35:29 Inflation number: 2 The stent balloon was then re-inflated across the Mid LAD to 14 ALFREDITO for 0:10 (min:sec). 13:35:33 Stent catheter was removed intact over wire. 13:38:38 Nitroglycerin IC/IA 100 mcg I.C. was administered by Tr Jimenez MD; for vasodilation; 13:40:20 Wire removed. 13:40:21 Guide catheter removed. 13:40:24 TR BAND Standard ([id number]) opened to sterile field. 13:40:42 Procedure ended.(Physican Out) 13:41:36 Sheath removed intact; hemostasis achieved with Mechanical Compression to the Right Radial artery. 13:41:50 Fluoroscopy time 05.90 minutes. 13:41:55 Flurop Dose total: 1436 13:41:55 Fluoroscopy dose: 1436 mGy 13:42:00 Contrast amount:Isovue 300 141ml. 13:42:04 TR band inflated with 10cc of air. 13:42:08 Post-procedure physical assessment completed. ASA score P 2 - A patient with mild systemic disease as per Tr Jimenez MD. 13:42:11 Post procedure rhythm: sinus rhythm 13:42:13 Estimated blood loss: 10 ml 13:42:14 Post procedure instruction explained to patient.Patient verbalizes understanding. 13:42:14 Patient needs reinforcement of post procedure teaching. 13:42:36 Procedure type changed to Cath procedure, Diagnostic procedure, LHC, LHC w/Coronaries, Sedation Charges, Moderate Sedation up to 30 minutes, PCI procedure, Coronary Stent, Coronary Stent Initial 13:43:11 Procedure and supply charges have been captured, reviewed, submitted and are correct. 13:43:15 Procedure Complication : No complications 13:43:17 Vital chart was stopped 13:43:17 See physician's report for complete and final results. 13:43:18 Report given to Pre/Post Procedure Room. 13:43:20 Patient transfered to Pre/Post Procedure Room with Bed. 13:43:22 Procedure ended. 13:43:22 Full Disclosure recording stopped 13:43:25 End room use (Document Last) 13:44:29 Plavix 600 mg P.O. was administered by Karson Curtis RN; for antiplatelet therapy; Intervention Summary Intervention Notes Time ActionType Lesion and Equipment Action# Pressure Duration Attributes Used 13:34:16 Place stent Mid LAD OSCAR OTW 3.5 1 14 00:10 x 15 stent ([id number]) 13:35:29 Reinflate Mid LAD OSCAR OTW 3.5 2 14 00:10 stent x 15 stent balloon ([id number]) Device Usage Item Name Manufacture Quantity Catalog Hospital Part Current Mini mal Lot# / Number Charge Number Stock Stock Serial# Code ACIST Syringe Acist 1 67442 237965 710105 043454 20 (99860) Medical Systems Inc Medline Cath Medline 1 [id number] 562992 87354 129375 5 Pack ([id number]) Bag Decanter Microtek 1 2002S 187485 95648 301281 5 (2002S) Medical Inc. ACIST Hand Acist 1 56808 077940 434503 857223 5 Control Medical (71725) Systems Inc ACIST Acist 1 01395 482650 864991 116671 5 Manifold Medical (14774) Systems Inc Tegaderm 4 x 3M 1 1626W 383109 871370 163624 5 4 (1626W) DIAGNOSTIC St Ayad 1 866286 206299 899934 145273 30 WIRE .035 260cm J wire (624937) MBrace Wrist Advanced 1 140-0250-00 069119 83519 478717 5 Support Vascular (112687352) Dynamics SHEATH 6FR Terumo 1 [id number] 117920 193720 699570 5 Slender (80-1060) NEEDLE Talicious Medical 1 K81230 788958 346230 839323 5 21G 4cm Radial (H73483) DIAGNOSTIC Terumo 1 40-9463 792379 073455 151364 5 Pedro Luis 110cm 5Fr catheter (724182) DIAGNOSTIC Terumo 1 40-8223 095046 640816 830198 5 [place]cca 110cm 5 Fr catheter (441880) INFLATOR Merit 1 CY5756 281957 978993 050369 15 Merit Medical BasixCompak (VO7631) BMW 300cm Rodirguez 1 1996048 913664 621657 839474 5 Straight Vascular [place] 2 wire (8118527) TUBING High Merit 1 [id number] 411707 00824 312368 10 Pressure Medical Extension Tubing (Jimenez) (RH2257Z) GUIDE 6FR EBU Medtronic 1 [id number] 188069 77392 935504 1 3.75 catheter ([id number]) OSCAR OTW 3.5 Medtronic 1 [id number] 422817 3442392 596324 5 [id number] x 15 stent ([id number]) TR BAND Terumo 1 [id number] 709653 023153 410436 40 Standard ([id number]) Signature Audit Cub Run Stage Time Signature Unsigned Intra-Procedure 10/04/2018 Jacquelyn Medina 1:46:00 PM RT(R) Signatures Monitor : Jacquelyn Medina Signature : RT Date : Time : [id number] [place] [address]
[~2018-10-04 11:00] MED LIST changes: -ASPIRIN81 MG
[2018-10-04 11:32] VITALS: BP 139/97; Ht 182.9 cm; Wt 109.1 kg
[2018-10-04 11:54] LABS: ANION GAP 11.6 mmol/L (8-16); CALCIUM 9.1 mg/dL (8.5-10.1); CARBON DIOXIDE 29.5 mmol/L (21.0-32.0); CREATININE - SERUM 1.3 mg/dL (0.6-1.3); POTASSIUM - SERUM 4.1 mmol/L (3.5-5.1)
[2018-10-04 11:58] LABS: BASOPHILS 0.6 % (0-2); EOSINOPHILS 3.8 % (0-7); HEMATOCRIT 49.3 % (42.0-54.0); HEMOGLOBIN 17.4 g/dL (13.5-17.5); IMMATURE GRANULOCYTES 0.6 % (0-5); LYMPHOCYTES 20.4 % (15-50); MCH 32.7 pg (26.0-34.0); MCHC 35.3 g/dL (31.0-37.0); MCV 92.7 fL (80.0-100.0); MEAN PLATELET VOLUME 9.8 fL (7.4-10.4); MONOCYTES 9.4 % (2-11); NEUTROPHILS 65.2 % (40-80); RBC 5.32 10x6/uL (4.20-6.10); RDW 12.2 % (11.5-14.5); WBC 6.6 10x3/uL (4.8-10.8)
[2018-10-04 12:02] LABS: PLATELET COUNT 193 10x3/uL (130-400)
--- NOTE | 2018-10-04 13:50 | NUR ---
PHYSICIAN AT BEDSIDE TO UPDATE FAMILY.
[2018-10-04] MEDS ORDERED: PLAVIX75 MG PO (13:53)
[2018-10-04] MEDS ORDERED: ASPIRIN81 MG (14:08)
--- NOTE | 2018-10-04 14:10 | NUR ---
PATIENT INTERMITTENTLY RESTING, VSS ON 1L NC. RIGHT TR BAND IN PLACE, NO S/S OF BLEEDING OR HEMTOMA. NO C/O PAIN, NUMBNESS, OR TINGLING.
--- NOTE | 2018-10-04 14:40 | NUR ---
PATIENT RESTING, VSS ON 1L NC. RIGHT TR BAND IN PLACE, NO S/S OF BLEEDING OR HEMATOMA. PATIENT GIVEN SANDWICH AND DRINK, NO N/V. PRESENT AT BEDSIDE.
--- NOTE | 2018-10-04 15:10 | NUR ---
PATIENT INTERMITTENTLY RESTING, VSS ON 1L NC. RIGHT TR BAND IN PLACE, NO S/S OF BLEEDING OR HEMATOMA. NO C/O PAIN, NUMBNESS, OR TINGLING. PRESENT AT BEDSIDE.
--- NOTE | 2018-10-04 15:40 | NUR ---
PATIENT RESTING, VSS ON ROOM AIR. RIGHT TR BAND IN PLACE,NO S/S OF BLEEDING OR HEMATOMA.
--- NOTE | 2018-10-04 16:10 | NUR ---
PATIENT RESTING, VSS ON ROOM AIR. RIGHT TR BAND IN PLACE, NO S/S OF BLEEDING OR HEMATOMA. NO C/O PAIN, NUMBNESS, OR TINGLING. NO N/V.
--- NOTE | 2018-10-04 16:40 | NUR ---
INITIATE AIR REMOVAL PROTOCOL FOR TR BAND, 4CC OF AIR REMOVED. NO S/S OF BLEEDING OR HEMATOMA. NO C/O PAIN, NUMBNESS, OR TINGLING. NO N/V. PRESENT AT BEDSIDE.
--- NOTE | 2018-10-04 17:10 | NUR ---
REMAINING AIR REMOVED FROM TR BAND, NO S/S OF BLEEDING OR HEMATOMA. IV REMOVED. EDUCATION REGARDING DISCHARGE INSTRUCTIONS AND MEDICATION COMPLIANCE GIVEN TO PATIENT AND SPOUSE, PATIENT VOICES UNDERSTANDING. VSS ON ROOM AIR. NO C/O PAIN, NUMBNESS, OR TINGLING. NO N/V. PATIENT VOIDED PER URINAL WITHOUT DIFFICULTY.
--- NOTE | 2018-10-04 17:30 | NUR ---
RIGHT RADIAL DRESSING IS CDI, NO S/S OF BLEEDING OR HEMATOMA. PATIENT TRANSPORTED VIA WHEELCHAIR TO CAR WITH SPOUSE DRIVING, ALL BELONGINGS SENT WITH PATIENT.
== END 2018-10-04 17:30 ==
LOC: D.CATH 11:00
PROVIDERS: ATTEND Internal Medicine Cardiovascular Disease
DX: I25.119 Atherosclerotic heart disease of native coronary artery with unspecified angina pectoris (principal); Z01.812 Encounter for preprocedural laboratory examination

== ENCOUNTER 2019-03-02 11:02 | Inpatient (IN) | payer BC, MEDICARE ==
[~2019-03-02] VITALS: Ht 180.3 cm; Wt 109.1 kg
--- NOTE | ~2019-03-02 | HEMODYNAMI ---
PATIENT:ADRIANA MASON MEDICAL RECORD: [id number] : 51 LOCATION:[facility] D.2122 ADMISSION DATE: 03/02/19 Generatedon:03/03/201913:48 Patient name: ADRIANA MASON Patient #: [id number] SSN: [id number] : 1955 Date of study: 03/03/2019 Page: Of Hemodynamic Procedure Report Patient Data Patient Demographics Procedure consent was obtained First Name: ADRIANA Gender: Male Last Name: ISABELLA : 1955 Middle Initial: CHANTELLE Age: 63 year(s) Patient #: [id number] Race: SSN: [id number] Additional ID: [id number] Contact details Address: [address] [place] [address] State: [place] City: [place] Zip code: [address] Past Medical History Allergies: No known allergies Admission Admission Data Admission Date: 03/02/2019 Admission Time: 13:43 Arrival Date: 03/03/2019 Arrival Time: 0:00 Admit Source: Emergency Insurance Payor: Private department health insurance Room #: D.2122 [facility] #: [id number] Height (in.): 70.87 BSA: 2.28 (m2) Height (cm.): 180 BMI: 33.64 (kg/m2) Weight (lbs.): 240.31 Weight (kg.): 109 Lab Results Lab Result Date: 03/03/2019 Lab Result Time: 11:32 Biochemistry Name Units Result Min Max BUN mg/dl 19 --(----)*- 7 18 Creatinine mg/dl 1.2 --(---*)-- 0.6 1.3 CBC Name Units Result Min Max Hematocrit % 47 --(-*--)-- 42 54 Hemoglobin g/dl 17.2 --(---*)-- 13.5 17.5 Procedure Procedure Types Cath Procedure Diagnostic Procedure LHC [facility] w/Coronaries Sedation Charges Moderate Sedation up to 15 minutes Procedure Description Procedure Date Procedure Date: 03/03/2019 Procedure Start Time: 13:33 Procedure End Time: 13:47 Procedure Staff Name Function Mynorlidnsey Angel RT Scrub Mattie Maharaj RT Monitor Toro Howard MD Performing Physician Ana Chong RN Nurse Lynnette Arroyo RT Scrub Indication Atrial fibrillation Procedure Data Cath Procedure Fluoroscopy Diagnostic fluoroscopy Total fluoroscopy Time: 1 time: 1 min min Diagnostic fluoroscopy Total fluoroscopy dose: 234 dose: 234 mGy mGy Contrast Material Contrast Material Type Amount (ml) Isovue 300 58 Entry Location Entry Primary Successful Side Size Upsize Upsize Entry Closure Marquez ccessful Closure Location (Fr) 1 (Fr) 2 (Fr) Remarks Device Remarks Radial Right 6 Fr Mechanical artery Short Compression Estimated blood loss: 5 ml Diagnostic catheters Device Type Used For End Catheter Placement DIAGNOSTIC [place] 110cm 5 Multi-vessel Fr catheter ([id number]) Angiography Procedure Complications No complications Procedure Medications Medication Administration Route Dosage 0.9% NaCl I.V. 100 ml/hr Oxygen etCO2 Nasal cannula 2 l/min Lidocaine 2% added to field 20 Heparin Flush Bag added to field 2 bags (1000units/500ml NS) Radial Cocktail added to field 1 syringe (Verapamil 2mg/Nitro 400mcg/Heparin 1500units) Versed I.V. 2 mg Fentanyl I.V. 50 mcg Versed I.V. 1 mg Fentanyl I.V. 50 mcg Hemodynamics Rest BSA: 2.28 (m2) HGB: 17.2 (g/dl) O2 Consumption: Estimated: 259.94 (ml/min) O2 Co nsumption indexed: Estimated:114.01 (ml/min/m) Heart Rate: 63 (bpm) Pressure Samples Time Site Value (mmHg) Purpose Heart Use Rate(bpm) 13:36 LV 68/1,5 Snapshot 56 Snapshots Pre Cath Intra NCS Post Cath Vital Signs Time Heart Resp SPO2 etCO2 NIBP (mmHg) Rhythm Pain Sedation Rate (ipm) (%) (mmHg) Status Level (bpm) 13:01:02 61 15 100 22.5 146/84(104) NSR 0 (11) 10(A) , No pain 13:05:18 65 17 98 24 144/77(123) NSR 0 (11) 10(A) , No pain 13:09:32 66 16 97 25 130/92(105) NSR 0 (11) 10(A) , No pain 13:13:46 62 17 97 27.7 131/73(115) NSR 0 (11) 10(A) , No pain 13:17:55 61 17 97 4.5 139/90(105) NSR 0 (11) 9(A) , No pain 13:22:11 58 18 98 28.4 135/80(113) NSR 0 (11) 9(A) , No pain 13:26:23 56 14 97 28.4 127/87(110) NSR 0 (11) 9(A) , No pain 13:30:31 60 16 98 23 122/86(100) NSR 0 (11) 9(A) , No pain 13:34:39 64 15 96 24.7 134/81(103) NSR 0 (11) 9(A) , No pain 13:38:57 66 16 98 27.7 127/67(99) NSR 0 (11) 10(A) , No pain 13:43:09 64 7 95 22.5 134/80(109) NSR 0 (11) 10(A) , No pain Medications Time Medication Route Dose Verified Delivered Reason Notes E ffectiveness by by 13:06:58 Fentanyl I.V. 50 mcg Toro Ana for Lee Chong sedation RN 13:06:59 Versed I.V. 2 mg Toro Ana for Lee Chong sedation RN 13:09:47 0.9% NaCl I.V. 100 Toro Ana used for ml/hr Lee Chong staff counselor 13:09:55 Oxygen etCO2 2 l/min Toro Ana used for Nasal Lee Chong procedure cannula RN 13:10:01 Lidocaine 2% added 20ml Toro Engel for local to vial Lee Howard MD anesthetic field 13:10:05 Heparin Flush added 2 bags Toro Engel used for Bag to Lee Howard MD procedure (1000units/500ml field NS) 13:10:29 Radial Cocktail added 1 Torotin Engel used for (Verapamil to syringe Lee Howard MD procedure 2mg/Nitro field 400mcg/Heparin 1500units) 13:12:12 Versed I.V. 1 mg Toro Ana for Lee Chong sedation RN 13:12:27 Fentanyl I.V. 50 mcg Toro Perez for [facility] MD Chong sedation warehouse technician Log Time Note 12::30 Informed consent obtained and on chart 12:24:13 ACC Patient presents with Non-STEMI CCS Anginal Class 4--Inability to carry out any physical activity w/o angina. Angina may occur at rest. 12:24:35 ACCPatient has been prescribed/administered the following anti-anginal medication within the last 2 weeks: ARB 12:: Lab Result : Hemoglobin 17.2 g/dl 12:: Lab Result : Hematocrit 47 % 12:: Lab Result : BUN 19 mg/dl 12:: Lab Result : Creatinine 1.2 mg/dl 12::47 Diagnostic Cath Status : Urgent 12:25:51 Procedure Status Urgent Heart Cath (IP). 12:25:53 Ana Chong RN sent for patient. Start room use. 12:25:54 Time tracking: Regular hours (M-F 7:00 - 5:00) 12:25:57 Plan of Care:Hemodynamics will remain stable., Cardiac rhythm will remain stable., Comfort level will be maintained., Respiratory function will remain adequate., Patient/ family verbilizes understanding of procedure., Procedure tolerated without complication., Recovers from procedure without complications.. 12:26:06 H&P Date Dictated: 03/02/2019 Within 30 days and on chart.. 12:26:31 Indication : Atrial fibrillation 12:27:01 Arrival Date: 03/03/2019 12:00:00 AM 12:27:03 Admit Source: Emergency department 12:27:07 Patient Weight : 240.31 lbs 12:27:14 Patient Height : 70.87 inches 12:33:32 Insurance Payor : Private health insurance 12:34:10 Warm blankets applied, and gabriella hugger turned on for patient comfort. 12:34:11 ECG and BP/O2 sat monitors applied to patient. 12:34:11 Correct patient and procedure confirmed by team. 12:37:56 patient requests to relocate IV; wants to attempt radial access 12:40:57 Patient received from PCU to CCL 3 Alert and oriented. Tansferred to table in Supine position. 12:47:12 IV started by Ana Castillo RN inright antecubital with a 20 gauge IV catheter with 0.9% NaCl at O. 12:56:45 Baseline sample Acquired. 12:56:49 Rhythm: sinus rhythm 12:59:54 Vital chart was started 13:01:51 Pre-procedure instructions explained to patient. 13:01:52 Pre-op teaching completed and patient verbalized understanding. 13:01:55 Family in patients room. 13:01:56 Patient NPO since Midnight. 13:01:57 Is the patient allergic to Iodine/contrast media? No. 13:01:59 Was the patient premedicated? No 13:04:35 Is patient on blood thinner?Yes 13:04:38 ACC The patient was administered the following blood thiners within the last 24 hours: ACCPlavix 13:04:40 Patient diabetic? No. 13:04:42 Previous problem with sedation/anesthesia? No ? 13:04:44 Snore? Yes 13:04:45 Sleep apnea? No 13:04:46 Deviated septum? No 13:04:47 Opens mouth fully? Yes 13:04:48 Sticks out tongue? Yes 13:04:49 Airway obstruction? No ? 13:04:53 Dentures? No ? 13:04:56 Pre procedure: right dorsailis pedis pulse 2+ Normal; easily identifiable; not easily obliterated 13:04:58 Pre procedure: left dorsailis pedis pulse 2+ Normal; easily identifiable; not easily obliterated 13:05:00 Patient pain scale 0/10 ?. 13:05:05 Lab results completed and on chart. 13:05:09 Right Radial & Right Groin area was prepped with chlora-prep and draped in sterile fashion 13:05:24 Alarms reviewed by R. N. 13:05:25 Sharps counted by scrub and verified by R.N. 13:05:30 Right Radial & Right Groin site verified by team. 13:05:30 Physical assessment completed. ASA score P 2 - A patient with mild systemic disease as per Toro Howard MD. 13:05:30 Sedation plan: IV Moderate Sedation Medication:Versed, Fentanyl 13:05:30 Physician arrived 13:05:30 --------ALL STOP TIME OUT------ 13:05:30 Final Timeout: patient, procedure, and site verified with staff and physician. All members of the team are in agreement. 13:05:30 Injector settings: Ml/sec: 3, Volume: 6, 13:06:58 Fentanyl 50 mcg I.V. was administered by Ana Chong RN; for sedation; 13:06:59 Versed 2 mg I.V. was administered by Ana Chong RN; for sedation; 13:09:47 0.9% NaCl 100 ml/hr I.V. was administered by Ana Chong RN; used for procedure; 13:09:55 Oxygen 2 l/min etCO2 Nasal cannula was administered by Ana Chong RN; used for procedure; 13:10:01 Lidocaine 2% 20ml vial added to field was administered by Toro Howard MD; for local anesthetic; 13:10:05 Heparin Flush Bag (1000units/500ml NS) 2 bags added to field was administered by Toro Howard MD; used for procedure; 13:10:29 Radial Cocktail (Verapamil 2mg/Nitro 400mcg/Heparin 1500units) 1 syringe added to field was administered by Toro Howard MD; used for procedure; 13:12:12 Versed 1 mg I.V. was administered by Ana Chong RN; for sedation; 13:12:27 Fentanyl 50 mcg I.V. was administered by Ana Chong RN; for sedation; 13:26:02 Baseline sample Acquired. 13:29:01 Use device set Radial Dx or PCI 13:29:02 ACIST Syringe (99959) opened to sterile field. 13:29:03 Medline Cath Pack ([id number]) opened to sterile field. 13:29:04 Bag Decanter (2002) opened to sterile field. 13:29:06 ACIST Hand Control (15285) opened to sterile field. 13:29:07 ACIST Manifold (32197) opened to sterile field. 13:29:07 Tegaderm 4 x 4 (1626W) opened to sterile field. 13:29:08 MBrace Wrist Support ([id number]) opened to sterile field. 13:29:10 SHEATH 6FR RAIN (9564225) opened to sterile field. 13:29:12 EMERALD Guide Wire (836-822) opened to sterile field. 13:33:48 Procedure started. 13:33:48 Full Disclosure recording started 13:33:55 Local anesthetic to right radial artery with Lidocaine 2% by Toro Howard MD.INITIAL ACCESS ONLY 13:34:17 A 6 Fr Short sheath was inserted into the Right Radial artery 13:35:08 A DIAGNOSTIC [place] 110cm 5 Fr catheter ([id number]) was advanced over the wire and used for Multi-vessel Angiography. 13:36:44 LV hemodynamics recorded. 13:36:45 LV gram done using MURPHY 13:36:48 Injector settings: Ml/sec: 5, Volume: 15, 13:36:53 EF : 60 % 13:37:16 LCA angiography performed. 13:37:19 Injector settings: Ml/sec: 3, Volume: 6, 13:38:57 RCA angiography performed. 13:41:28 Injector settings: Ml/sec: 3, Volume: 6, 13:41:31 Catheter removed. 13:41:38 Sheath removed intact; hemostasis achieved with Mechanical Compression to the Right Radial artery. 13:41:40 Procedure ended.(Physican Out) 13:41:56 Fluoroscopy time 01.00 minutes. 13:42:01 Flurop Dose total: 234 13:42:01 Fluoroscopy dose: 234 mGy 13:42:05 Dose Area Product 1673 mGy/cm. 13:42:17 Contrast amount:Isovue 300 58ml. 13:42:39 Sharps counted by scrub and verified by R.N. 13:42:57 ZEPHYR REGULAR TR BAND (646659) opened to sterile field. 13:43:01 Grampian band inflated with 10cc of air. 13:43:03 Insertion/operative site no bleeding no hematoma. 13:43:12 Post right radial artery:stable 13:43:13 Post Procedure Pulses reassessed and unchanged 13:43:16 Post procedure rhythm: unchanged. 13:43:18 Estimated blood loss: 5 ml 13:43:20 Post procedure instruction explained to patient.Patient verbalizes understanding. 13:43:20 Patient needs reinforcement of post procedure teaching. 13:43:27 Procedure type changed to Cath procedure, Diagnostic procedure, LHC, LHC w/Coronaries, Sedation Charges, Moderate Sedation up to 15 minutes 13:43:28 Procedure and supply charges have been captured, reviewed, submitted and are correct. 13:43:32 Procedure Complication : No complications 13:43:36 Vital chart was stopped 13:43:37 See physician's report for complete and final results. 13:47:55 Report given to Med II. 13:47:57 Patient transfered to Med II with Stretcher. 13:47:59 Procedure ended. 13:47:59 Full Disclosure recording stopped 13:48:10 ACC-PCI Only Patient was given prescriptions, or instructed by Toro Howard MD to start/continue the following medications upon discharge: Plavix 13:48:11 End room use (Document Last) Device Usage Item Name Manufacture Quantity Catalog Hospital Part Current Minima l Lot# / Number Charge Number Stock Stock Serial# Code ACIST Acist 1 [id number] 332381 409753 [id number] 20 Syringe Medical (29992) Systems Inc Medline Medline 1 [id number] 438612 76683 291840 5 Cath Pack ([id number]) Bag Microtek 1 2001S 403663 61892 711950 5 Decanter Medical Inc. () ACIST Hand Acist 1 74704 536974 172819 182215 5 Control Medical (29705) Systems Inc ACIST Acist 1 41508 637394 973370 275637 5 Manifold Medical (65322) Systems Inc Tegaderm 4 3M 1 1626W 199170 335697 005229 5 x 4 (1626W) MBrace Advanced 1 140-0250-00 801661 81116 476393 5 Wrist Vascular Support Dynamics ([id number]) SHEATH 6FR Cardinal 1 8597986 070246 0139822 288597 5 [facility] (3847242) EMERALD Cardinal 1 502-006 988820 735111 890289 5 Guide Wire Health (444-325) DIAGNOSTIC Terumo 1 40-9333 117550 275301 779238 5 [place] 110cm 5 Fr catheter (684435) ZEPHYR Cardinal 1 402958 731070 9111134 092690 5 REGULAR TR Health BAND (046210) Signature Audit Max Stage Time Signature Unsigned Intra-Procedure 03/03/2019 Mattie Maharaj 1:48:39 PM RT(R) Signatures Monitor : Mattie Maharaj RT Signature : Date : Time : Performing Physician : Signature : Toro Tauth MD Date : Time : Nurse : Ana Chong RN Signature : Date : Time : [address] [place] [address]
[~2019-03-02 11:02] MED LIST changes: +ASPIRIN81 MG
[2019-03-02 11:35] LABS: BASOPHILS 0.6 % (0-2); EOSINOPHILS 3.8 % (0-7); HEMOGLOBIN 17.2 g/dL (13.5-17.5); IMMATURE GRANULOCYTES 0.7 % (0-5); LYMPHOCYTES 20.4 % (15-50); MCH 32.7 pg (26.0-34.0); MCHC 36.6 g/dL (31.0-37.0); MCV 89.4 fL (80.0-100.0); MEAN PLATELET VOLUME 10.2 fL (7.4-10.4); MONOCYTES 12.9 % (2-11); NEUTROPHILS 61.6 % (40-80); PLATELET COUNT 208 10x3/uL (130-400); RBC 5.26 10x6/uL (4.20-6.10); WBC 6.8 10x3/uL (4.8-10.8)
[2019-03-02 11:52] LABS: ALBUMIN 3.8 g/dL (3.4-5.0); ALKALINE PHOSPHATASE 75 U/L (46-116); ALT (SGPT) 37 U/L (10-68); BILIRUBIN - TOTAL 0.65 mg/dL (0.2-1.3); CALC OSMOLALITY 286 mosm/kg (275-300); CALCIUM 9.4 mg/dL (8.5-10.1); CARBON DIOXIDE 28.3 mmol/L (21.0-32.0); CHLORIDE - SERUM 108 mmol/L (98-107); CREATININE - SERUM 1.2 mg/dL (0.6-1.3); GLUCOSE 100 mg/dL (74-106); POTASSIUM - SERUM 4.1 mmol/L (3.5-5.1); SODIUM 143 mmol/L (136-145); UREA NITROGEN 19 mg/dL (7-18); eGFR NON AFRICAN AMERICAN 64 mL/min (90-120)
--- NOTE | 2019-03-02 11:57 | NUR ---
CARDIZEM EFFECTIVE WITH HEART RATE IN 80S.
[2019-03-02 12:00] LABS: APTT 28.5 SECONDS (22.8-39.4); INR 1.12 (0.85-1.17); PROTIME 13.9 SECONDS (11.6-15.0)
[2019-03-02 12:07] LABS: CKMB 5.6 U/L (0.0-3.6); CREATINE KINASE 222 UL (21-232); MAGNESIUM - SERUM 1.9 mg/dL (1.8-2.4)
[2019-03-02 12:09] LABS: TROPONIN-I 0.394 ng/mL (0.000-0.060)
[2019-03-02 12:55] VITALS: BP 122/63
--- NOTE | 2019-03-02 14:21 | NUR ---
REPORT TO COLIN STERN. PT TO BE ADMITTED TO ROOM 2122. ROOM NOT YET CLEAN.
--- NOTE | 2019-03-02 14:21 | NUR ---
PT PAIN FREE AFTER SECOND DOSE OF MORPHONE.
[2019-03-02 15:10] LABS: T4 THYROXIN - FREE 1.07 ng/dL (0.76-1.46); THYROID STIMULATING HORMONE 2.76 uIU/mL (0.36-3.74)
[2019-03-02] MEDS ORDERED: COZAAR50 MG PO (15:14)
--- NOTE | 2019-03-02 15:28 | NUR ---
RECIEVED FROM ER. ALERT AND ORIENTED. TELEMERTY SHOWS CAF 80. IV TO RIGHT FA WITH NS AT 125 AND CARDIZEM 10. DENIES ANY NEEDS. FAMILY AT BEDSIDE
[2019-03-02 16:57] VITALS: BP 131/71; Ht 180.3 cm; Wt 109.1 kg
--- NOTE | 2019-03-02 17:05 | NUR ---
ASSESSMENT COMPLETE PT DENIES ANY NEEDS OR DISCOMFORT AT THIS TIME RESP UNLABORED TELEMETRY APPLIED CAF RATE 80s WILL CONTINUE TO MONITOR
[2019-03-02 17:27] LABS: CKMB 4.5 U/L (0.0-3.6); CREATINE KINASE 174 UL (21-232)
[2019-03-02 17:28] LABS: TROPONIN-I 0.539 ng/mL (0.000-0.060)
--- NOTE | 2019-03-02 18:30 | NUR ---
DENIES ANY NEEDS. FAMILY AT BEDSIDE.IV CARDIZEM AT 5CC/HR. TELEMERTY SHOWS CAF 76
--- NOTE | 2019-03-02 19:34 | NUR ---
ASSESSMENT COMPLETE, PT A&O. RESPERATIONS EVEN AND UNLABORED. IV TO RIGHT FOREARM WITH NS INFUSING AT 125 CC/HR AND CARDIZEM DRIP AT 5 CC HR. IV SITE CLEAN AND DRY. 78 CONTROLLED A- FIB ON TELEMETRY. PT DENIES NEEDS AT THIS TIME. VISITORS AT BED SIDE. BED LOW, CL IN REACH.
[2019-03-02 20:00] VITALS: BP 115/69
--- NOTE | 2019-03-02 21:24 | NUR ---
MORPHINE 2 MG GIVEN FOR C/O PAIN TO CHEST. 78 C-AFIB ON TELEMETRY.
[2019-03-02 23:27] LABS: CKMB 3.2 U/L (0.0-3.6); CREATINE KINASE 157 UL (21-232); TROPONIN-I 0.513 ng/mL (0.000-0.060)
[2019-03-03] VITALS: BP 110/69
--- NOTE | 2019-03-03 02:39 | NUR ---
RESTING WITH EYES CLOSED, RESPERATIONS EVEN, NO S/S DISTRESS NOTED.
--- NOTE | 2019-03-03 03:43 | NUR ---
I have reviewed this patient and I concur with the Shift Assessment completed by the Licensed Practical Nurse today this shift.
[2019-03-03 04:00] VITALS: BP 110/62
--- NOTE | 2019-03-03 04:01 | NUR ---
NOTIFIED BY MT THAT PT HAS CONVERTED TO SR WITH A RATE OF 63.
--- NOTE | 2019-03-03 07:30 | NUR ---
AWAKE AND ALERT. TELEMERTY SHOWS SR 69. CARDIZEM AT 5 M AND NS AT 125CC/H INFUSING INTO R FA. DENIES ANY NEEDS AT PRESENT TIME. UP AB LINDY. FAMILY AT BEDSIDE. WILL MONITOR
[2019-03-03 08:00] VITALS: BP 128/76
[2019-03-03 11:29] LABS: BASOPHILS 0.7 % (0-2); EOSINOPHILS 4.9 % (0-7); HEMATOCRIT 43.8 % (42.0-54.0); HEMOGLOBIN 15.5 g/dL (13.5-17.5); IMMATURE GRANULOCYTES 0.5 % (0-5); LYMPHOCYTES 18.7 % (15-50); MCH 32.1 pg (26.0-34.0); MCHC 35.4 g/dL (31.0-37.0); MCV 90.7 fL (80.0-100.0); MEAN PLATELET VOLUME 9.8 fL (7.4-10.4); MONOCYTES 10.6 % (2-11); NEUTROPHILS 64.6 % (40-80); PLATELET COUNT 182 10x3/uL (130-400); RBC 4.83 10x6/uL (4.20-6.10); RDW 13.1 % (11.5-14.5); WBC 5.7 10x3/uL (4.8-10.8)
--- NOTE | 2019-03-03 11:40 | NUR ---
PRE OPED FOR CATH
[2019-03-03 11:51] LABS: ANION GAP 13.1 mmol/L (8-16); CALCIUM 8.3 mg/dL (8.5-10.1); CARBON DIOXIDE 26.2 mmol/L (21.0-32.0); CREATININE - SERUM 1.2 mg/dL (0.6-1.3); POTASSIUM - SERUM 4.3 mmol/L (3.5-5.1)
[2019-03-03 12:00] VITALS: BP 137/85
[2019-03-03 12:11] LABS: APPEARANCE HAZY (CLEAR); BILIRUBIN NEGATIVE (NEGATIVE); COLOR YELLOW (YELLOW); GLUCOSE NEGATIVE (NEGATIVE); KETONE MODERATE mg/dL (NEGATIVE); NITRITE NEGATIVE (NEGATIVE); PROTEIN NEGATIVE (NEGATIVE); SPECIFIC GRAVITY 1.015 (1.005-1.020); WHITE CELLS - URINE 0-5 /hpf (0-5)
[2019-03-03 12:12] LABS: BACTERIA FEW /hpf (NONE SEEN); EPITHELIAL CELLS RARE /hpf (0-5); MUCUS <1+ /lpf (NONE SEEN); RED CELLS - URINE 25-50 /hpf (0-5)
--- NOTE | 2019-03-03 12:32 | NUR ---
TO WEDDING COORDINATOR PER BED
--- NOTE | 2019-03-03 12:33 | NUR ---
UP IN BEDSIDE CHAIR. DENIES ANY NEEDS.
--- NOTE | 2019-03-03 14:25 | NUR ---
BACK FROM RIB SAWYER. TELEMERTY SHOWS SR 60. CATH SITE TO RIGHT RADIAL WITH NO SWELLING OR EDEMA. FINGERS WARM. VITAL SIGNS STABLE AT 122/74 68 18 O2 SAT 96% ROOM AIR. FAMILY AT BEDSIDE.
[2019-03-03 14:45] VITALS: BP 122/74
--- NOTE | 2019-03-03 15:11 | NUR ---
V/S STABLE. CATH SITE WITH NO BLEEDING OR SWELLING. FINGERS WARM. SR UP WITH CALL LIGHT IN REACH
[2019-03-03] MEDS ORDERED: BETAPACE 80 MG80 MG PO (15:30)
--- NOTE | 2019-03-03 16:52 | MORECARE ---
CASE MANAGEMENT DISCHARGE SUMMARY PATIENT: ADRIANA MASON UNIT: [id number] ADM DATE: 03/02/19 AGE: 63 : [birth year] SEX: M ROOM/BED: D.2122 AUTHOR: ZAINAB,DOC PHYSICIAN: REFERRING PHYSICIAN: DAPHNE CLEMENS MD DATE OF SERVICE: 03/03/19 Discharge Plan Patient Name: ADRIANA MASON Facility: [facility]:[place] : 1955 Planned Disposition: Home Anticipated Discharge Date: 03/03/19 Discharge Date: Expected LOS: 1 Initial Reviewer: [email or web address] Initial Review Date: 03/03/2019 Generated: 03/03/19 5:52 pm Comments DCP- Discharge Planning Updated by [email or web address]: Servando Vieira on 03/03/19 3:[address] Patient Name: ADRIANA MASON Admission Status: ER Accout number: [id number] Admission Date: 03-02-2019 : 1955 Admission Diagnosis:PALPITATIONS Attending: DAPHNE CLEMENS Current LOS: 1 Anticipated DC Date: 03-03-2019 Planned Disposition: Home Primary Insurance: Looking for [employer] TRUE BLUE PPO Discharge Planning Comments: CM MET WITH PT AND SPOUSE IN ROOM TO DISCUSS DISCHARGE PLANNING AND NEEDS. ADRIANA MASON provided verbal consent to discuss current and ongoing needs with/in the presence of: SPOUSE, NICOLA. PT REPORTS LIVING AT HOME INDEPENDENTLY WITH SPOUSE. PT HAS NO MEDICAL EQUIPMENT AND NO OUTSIDE SERVICES ASSISTING IN THE HOME. CM DISCUSSED AVAILABILITY OF HOME HEALTH, REHAB SERVICES AND MEDICAL EQUIPMENT. PT DENIES DISCHARGE NEEDS, REPORTS HIS PICK HIM UP FOR DISCHARGE HOME. Syrup Filterer: Servando Vieira DCPIA - Discharge Planning Initial Assessment Updated by [email or web address]: Servando Vieira on 03/03/19 4:47 pm * Is the patient Alert and Oriented? Yes * How many steps to enter\exit or inside your home? NONE * PCP DR. MULLER * Pharmacy [facility] [address] * Preadmission Environment Home with Family * ADLs Independent * Equipment None * Other Equipment NO MEDICAL EQUIPMENT PROVIDER PREFERENCE * List name and contact numbers for known caregivers / representatives who currently or will assist patient after discharge: NICOLA MASON, SPOUSE, * Verbal permission to speak to the caregivers and representatives has been obtained from the patient. Yes * Community resources currently utilized None * Please name any agencies selected above. NONE * Additional services required to return to the preadmission environment? No * Can the patient safely return to the preadmission environment? Yes * Has this patient been hospitalized within the prior 30 days at any hospital? No Patient Name: ADRIANA MASON Page [id number] at 1652 All edits/amendments must be made on the electronic document DICTATION DATE: 03/03/191651 PIECE MAKER: PO 03/03/191651 RPT#: [id number] DC DATE: STATUS: ADM IN [facility] [address] [place] [address] END OF REPORT
--- NOTE | 2019-03-03 17:20 | NUR ---
PT DISCHARGED. INSTRUCTIONS GIVEN TO PT AND . TO PRIVATE CAR WITH NURSE AT SIDE.PT REFUSED TO RIDE IN WHEELCHAIR
--- NOTE | 2019-03-15 14:31 | OP ---
PATIENT NAME: ADRIANA MASON MEDICAL RECORD: [id number] :[birth year] LOCATION:D.M2 D.2122 ADMISSION DATE:03/02/19 SURGEON: RADHIKA VALLE MD DATE OF OPERATION: 03/03/2019 PROCEDURES: 1. Left heart catheterization. 2. Selective coronary angiography. 3. Left ventriculogram. INDICATIONS: Non-Q-wave myocardial infarction, atrial fibrillation with rapid ventricular response. PROCEDURE IN DETAIL: After informed consent was obtained and after detailed explanation of risks, benefits as well as alternative therapies, the patient elected to proceed with angiogram. The right radial area was prepped and draped in normal sterile fashion. Right radial artery was cannulated via modified Seldinger technique with placement of 5-Thai sheath. All catheters exchanged through this sheath. FINDINGS: The left ventriculogram was performed in standard 30-degree MURPHY view, reveals good cardiac wall motion, ejection fraction 60%. SELECTIVE CORONARY ANGIOGRAPHY: 1. Left main is with no significant angiographic disease. 2. Left anterior descending has previously placed stents, mild irregularities. No flow-limiting stenosis. No significant restenosis. No disease elsewise throughout the LAD or its branches. 3. Left circumflex has a previously placed stent that is widely patent with no significant restenosis. No disease elsewise throughout the circumflex or its branches. 4. The right coronary has previously placed stents. These are widely patent with no significant restenosis. No disease elsewise throughout the RCA or its branches. OVERALL IMPRESSION: No new coronary artery disease is present. The elevated troponin secondary to the atrial fibrillation with rapid ventricular response. TRANSINT:[id number] Voice Confirmation ID: [id number] DOCUMENT ID: [id number] RADHIKA VALLE MD at 1431 CC: [id number] DICTATION DATE: 03/03/19 1346 PATIENT ADMITTING CLERK: 03/03/19 1413 DIS IN 03/03/19 [address] [place] [address]
--- NOTE | 2019-03-15 14:31 | EC ---
PATIENT:ADRIANA MASON DATE OF SERVICE: 03/02/19 SEX: M MEDICAL RECORD: [id number] DATE OF : [birth year] LOCATION:D.M2 D.212 AGE OF PATIENT: 63 ADMISSION DATE: 03/02/19 REFERRING PHYSICIAN: INTERPRETING PHYSICIAN: RADHIKA VALLE MD ECHOCARDIOGRAM REPORT ECHO CHARGES 4 ECHO COMPLETE Date: 03/03/19 CLINICAL DIAGNOSIS: A-FIB ECHOCARDIOGRAPHIC MEASUREMENTS (adult normal given) AC root (d.<3.7cm) 3.0 cm LV Septum d (<1.2 cm> 1.3 cm Valve Excursion 2.2 cm LV Septum (systole) 2.0 cm Left Atria (s.<4.0cm> 4.3 cm LVPW d(<1.2cm) 1.5 cm RV (d.<2.3cm) 2.8 cm LVPW (sytole) 2.0 cm LV diastole(<5.6CM) 5.0 cm MV E-F(>70mm/sec) cm LV systole 2.3 cm LVOT Diameter 2.0 cm MV exc.(>10mm) cm Est.ejection fraction (50-75%) % DOPPLER: LVIT cm/sec A 67.0 cm/sec E 81.0 cm/sec LA cm/sec RVSP 21.1 mmHg LVOT 128 cm/sec AOP1/2T m/s Asc. Ao 155 cm/sec RVOT 65.0 cm/sec RA cm/sec PA 67.0 cm/sec AV Gradient Peak 9.6 mmHg AV Mean 5.8 mmHg AV Area 2.2 cm MV Gradient Peak 3.7 mmHg MV Mean 1.7 mmHg MV Area cm COMMENTS: Development Architect: 1 SHOSHANA KEITH Coding Director: 2 Dr. Jimenez TAPE# PACS Pericardial Effusion N DATE OF SERVICE: 03/03/2019 PROCEDURE: Echocardiogram. FINDINGS: 1. Left ventricular chamber size is within normal limits. Left ventricular systolic function is normal. Overall ejection fraction estimated at 60%. 2. Left atrium is enlarged at 4.3 cm. Right atrium and right ventricular chamber sizes are as well mildly dilated. 3. Valvular structures have normal structure and motion. ECHOCARDIOGRAM REPORT [id number] ADRIANA MASON 4. Doppler interrogation reveals only trace tricuspid regurgitation, no other valvular insufficiency or stenosis. 5. No evidence of pericardial effusion or left ventricular thrombus. TRANSINT:[id number] Voice Confirmation ID: [id number] DOCUMENT ID: [id number] RADHIKA VALLE MD at 1431 CC: [id number] DICTATION DATE: 03/03/19 1148 NATURAL DEVELOPER: 03/03/19 1157 DIS IN 03/03/19 [facility] [address] [id number]
== END 2019-03-03 17:23 | disposition home or self-care (01) | DRG 287 ==
LOC: D.ER 11:02 → D.M2 13:43
PROVIDERS: Family Medicine; Internal Medicine Cardiovascular Disease; Internal Medicine Interventional Cardiology; ADMIT Internal Medicine Nephrology; ATTEND Internal Medicine Nephrology
PROC: B2151ZZ Fluoroscopy of Left Heart using Low Osmolar Contrast (ICD-10-PCS; 2019-03-03)
PROC: 4A023N7 Measurement of Cardiac Sampling and Pressure, Left Heart, Percutaneous Approach (ICD-10-PCS; 2019-03-03)
PROC: B2111ZZ Fluoroscopy of Multiple Coronary Arteries using Low Osmolar Contrast (ICD-10-PCS; principal; 2019-03-03 12:25)
DX: I48.91 Unspecified atrial fibrillation (principal); N17.9 Acute kidney failure, unspecified; E78.5 Hyperlipidemia, unspecified; I10 Essential (primary) hypertension; I25.10 Atherosclerotic heart disease of native coronary artery without angina pectoris; R42 Dizziness and giddiness

== ENCOUNTER 2019-04-27 07:15 | Day surgery (SDC) | payer BC ==
[2019-04-25 12:09] LABS: HEMATOCRIT 47.1 % (42.0-54.0); HEMOGLOBIN 16.1 g/dL (13.5-17.5); MCH 32.3 pg (26.0-34.0); MCHC 34.2 g/dL (31.0-37.0); MCV 94.6 fL (80.0-100.0); MEAN PLATELET VOLUME 9.9 fL (7.4-10.4); RBC 4.98 10x6/uL (4.20-6.10); RDW 12.3 % (11.5-14.5); WBC 5.9 10x3/uL (4.8-10.8)
[~2019-04-27] VITALS: Ht 182.9 cm; Wt 113.4 kg
[~2019-04-27 07:15] MED LIST changes: +COZAAR50 MG PO; +ULTRAM50 MG PO
[2019-04-27 07:53] VITALS: BP 163/87; Ht 182.9 cm; Wt 113.4 kg
[2019-04-27] MEDS ORDERED: HYDROCODON-ACE1 EA10 PO (13:06)
--- NOTE | 2019-04-27 16:30 | NUR ---
PATIENT AMBULATING AROUND ROOM, DRESSED IN PERSONAL CLOTHING. DISCHARGE INSTRUCTIONS REVIEWED WITH PATIENT AND SPOUSE. BORDERED GAUZE DRESSING WITH BLOODY DRAINAGE REMOVED AND GAUZE DRESSING PLACED. NO ACTIVE OOZING OR BLEEDING NOTED. JULIANNE INTACT. 1635 DISCHARGED HOME VIA WHEELCHAIR TO PRIVATE VEHICLE WITH SPOUSE
--- NOTE | 2019-05-24 08:07 | OP ---
PATIENT NAME: ADRIANA MASON MEDICAL RECORD: [id number] :51 LOCATION:[facility] ADMISSION DATE: SURGEON: YESSENIA EASON MD DATE OF OPERATION: 04/27/2019 PREOPERATIVE DIAGNOSES: Left lumbar spinal stenosis and foraminal stenosis at L3-L4 and L4-L5. POSTOPERATIVE DIAGNOSES: Left lumbar spinal stenosis and foraminal stenosis at L3-L4 and L4-L5. PROCEDURE: Lumbar laminectomy, medial facetectomy, and foraminotomy L4-L5 and L3-L4 on the left. SURGEON: Yessenia Eason MD DESCRIPTION AND TECHNIQUE: After induction of general endotracheal anesthesia, the patient was rolled prone on a Aravind frame. Lumbar spine was prepped and draped in usual sterile fashion. Fluoroscopic x-ray and spinal needle localized the L3-L4 interspace on the left side. After infiltration of 1:100,000 epinephrine and 1% lidocaine, a skin incision was carried out from the spinous process of L3-L5 using Bovie cautery. The fascia was incised and the spinous processes and lamina of L3, L4, and L5 were exposed in a subperiosteal manner with Bovie cautery. A Estevan self-retaining retractor was placed in the wound. The L3-L4 interspace was identified with fluoroscopic x-ray and a Liberal elevator. A laminotomy, medial facetectomy, and foraminotomies were carried out with Midas Winston drill at L3-L4 and L4-L5 on the left. Hypertrophied ligamentum flavum was removed at each level. Following this, the L3, L4, and L5 nerve roots were decompressed well. Meticulous hemostasis was maintained throughout the wound. Found no significant nerve root compression from disc protrusions in the spinal canal. Retractor was removed. The fascia was closed with 2-0 Vicryl suture. The subdermal layer was closed with 3-0 Vicryl suture. The skin was closed with eula. A sterile dressing was applied to the wound. The patient was awakened in good condition and taken to recovery. All counts were reported as correct. Estimated blood loss was minimal. TRANSINT:[id number] Voice Confirmation ID: [id number] DOCUMENT ID: [id number] YESSENIA EASON MD at 0807 CC: [id number] DICTATION DATE: 05/18/19 7022 MANAGER OUTPATIENT: 05/18/19 1537 [facility] [place] 04/27/19 [place] [address] [place] [address]
== END 2019-04-27 16:35 | disposition home or self-care (01) ==
LOC: D.OPS 07:15 → D.PAN 09:15 → D.OPS 09:15
PROVIDERS: Anesthesiology; ATTEND Neurological Surgery
DX: M48.061 Spinal stenosis, lumbar region without neurogenic claudication (principal); E78.5 Hyperlipidemia, unspecified; I10 Essential (primary) hypertension; G47.30 Sleep apnea, unspecified; M54.16 Radiculopathy, lumbar region; M53.86 Other specified dorsopathies, lumbar region

== ENCOUNTER → 2019-07-12 12:05 | Outpatient (CLI) | payer BC ==
[2019-04-27 07:53] VITALS: BMI 34.0
[~2019-07-12 12:05] MED LIST changes: +HYDROCODON-ACE1 EA10 PO; +MUSCLE RELAXER
== END | disposition home or self-care (01) ==
LOC: D.US 12:05
PROVIDERS: ATTEND Nurse Practitioner
DX: M79.605 Pain in left leg (principal)

== ENCOUNTER 2019-07-12 13:10 | Inpatient (IN) | payer BC ==
[~2019-07-12] VITALS: Ht 182.9 cm; Wt 110.6 kg
--- NOTE | ~2019-07-12 | HEMODYNAMI ---
PATIENT:ADRIANA MASON MEDICAL RECORD: [id number] : 51 [facility] AD[facility] DATE: 07/12/19 Generatedon:07/14/201915:06 Patient name: ADRIANA MASON Patient #: [id number] SSN: [id number] : 1955 Date of study: 07/14/2019 Page: Of Hemodynamic Procedure Report Patient Data Patient Demographics Procedure consent was obtained First Name: ADRIANA Gender: Male Last Name: ISABELLA : 1955 Middle Initial: CHANTELLE Age: 64 year(s) Patient #: [id number] Race: SSN: [id number] Additional ID: [id number] Contact details Address: [address] [place] [address] State: [place] City: [place] Zip code: [address] Past Medical History Allergies: No known allergies Admission Admission Data Admission Date: 07/12/2019 Admission Time: 16:15 Room #: [facility]6 Height (in.): 72 BSA: 2.32 (m2) Height (cm.): 182.88 BMI: 33.23 (kg/m2) Weight (lbs.): 245 Weight (kg.): 111.13 Procedure Procedure Types Cath Procedure Peripheral Cath Diagnostic Procedure Media Operator Peripheral Procedures Venography Extremity Left Lower Ext. Venagram Procedure Description Procedure Date Procedure Date: 07/14/2019 Procedure Start Time: 14:16 Procedure Staff Name Function Adriana Julio MD Performing Physician Emily Garcia RT Microwave Supervisor Janice Jimenez RN Nurse Kristopher Guardado RT Scrub Procedure Data Cath Procedure Fluoroscopy Diagnostic fluoroscopy Total fluoroscopy Time: 7 time: 7 min min Diagnostic fluoroscopy Total fluoroscopy dose: 323 dose: 323 mGy mGy Contrast Material Contrast Material Type Amount (ml) Isovue 300 75 Procedure Medications Medication Administration Route Dosage Heparin Flush Bag added to field 2 bags (1000units/500ml NS) Lidocaine 1% added to field 20 Zofran I.V. 4 mg Benadryl I.V. 25 mg Versed I.V. 1 mg Fentanyl I.V. 50 mcg Versed I.V. 1 mg Fentanyl I.V. 50 mcg Heparin Bolus I.V. 5000 units Versed I.V. 1 mg Fentanyl I.V. 50 mcg Hemodynamics Rest BSA: 2.32 (m2) O2 Consumption: Estimated: 288.62 (ml/min) O2 Consumption indexed : Estimated:124.41 (ml/min/m) Heart Rate: 91 (bpm) Snapshots Pre Cath Intra NCS Post Cath Vital Signs Time Heart Resp SPO2 etCO2 NIBP (mmHg) Rhythm Pain Sedation Rate (ipm) (%) (mmHg) Status Level (bpm) 14:05:47 91 29 99 23.1 146/93(118) NSR 0 (11) 10(A) , No pain 14:10:03 88 12 98 30.6 131/89(112) NSR 0 (11) 10(A) , No pain 14:14:11 88 17 97 43.3 148/94(133) NSR 0 (11) 10(A) , No pain 14:18:27 90 19 97 29.9 148/103(123) NSR 0 (11) 8(A) , No pain 14:23:26 91 19 86 29.1 Measuring NSR 0 (11) 8(A) , No pain 14:23:32 90 19 86 20.9 165/91(106) NSR 0 (11) 8(A) , No pain 14:27:44 88 13 98 23.9 142/90(107) NSR 0 (11) 8(A) , No pain 14:31:58 85 16 97 21.6 136/85(117) NSR 0 (11) 10(A) , No pain 14:36:57 88 17 97 32.8 Measuring NSR 0 (11) 10(A) , No pain 14:37:03 87 14 97 20.1 150/96(116) NSR 0 (11) 10(A) , No pain 14:41:23 90 14 95 23.1 155/81(133) NSR 0 (11) 10(A) , No pain 14:45:39 84 18 94 26.8 163/97(136) NSR 0 (11) 10(A) , No pain 14:49:59 83 18 96 17.1 168/99(139) NSR 0 (11) 10(A) , No pain 14:54:11 74 13 93 19.4 153/101(123) NSR 0 (11) 10(A) , No pain 14:58:27 80 22 95 26.9 167/102(141) NSR 0 (11) 10(A) , No pain 15:03:26 87 11 97 17.9 Measuring NSR 0 (11) 10(A) , No pain 15:03:49 86 8 97 20.9 173/106(134) NSR 0 (11) 10(A) , No pain Medications Time Medication Route Dose Verified Delivered Reason Notes Effe ctiveness by by 14:09:14 Heparin Flush added 2 Adriana Tamayo used for Bag to bags Sumanth Julio procedure (1000units/500ml field MD MORA NS) 14:09:25 Lidocaine 1% added 20ml Adriana Tamayo for local to vial Sumanth Julio anesthetic field MD MORA 14:09:42 Zofran I.V. 4 mg Adriana Camacho for nausea Sumanth Jimenez RN, MD 14:17:43 Benadryl I.V. 25 mg Adriana Camacho Per Sumanth Jimenez RN physician 14:17:55 Versed I.V. 1 mg Adriana Camacho for Sumanth Jimenez RN sedation 14:18:06 Fentanyl I.V. 50 Adriana Janice for mcg Sumanth Jimenez RN sedation 14:27:40 Versed I.V. 1 mg Adriana Camacho for Sumanth Jimenez RN sedation 14:27:47 Fentanyl I.V. 50 Adriana Camacho for mcg Sumanth Jimenez RN sedation 14:36:43 Heparin Bolus I.V. 5000 Adriana Camacho Per units Sumanth Jimenez RN physician 14:48:11 Versed I.V. 1 mg Adriana Camacho for Sumanth Jimenez RN sedation 14:48:20 Fentanyl I.V. 50 Adriana Janice for mcg Sumanth Jimenez RN sedation Procedure Log Time Note 13:26:53 Patient Height : 72 inches 13:26:58 Patient Weight : 245 lbs 13:27:32 Use device set IR Diagnostic 13:27:38 Tegaderm 4 x 4 (1626W) opened to sterile field. 13:27:40 Sterile Angiographic Pack opened to sterile field. 13:27:41 Bag Decanter (2002S) opened to sterile field. 13:28:10 BENTSON 145cm wire ([id number]) opened to sterile field. 13:28:11 Micropuncture VSI 4FR kit opened to sterile field. 13:28:52 Sheath 8fr. [place] 10cm opened to sterile field. 14:04:45 Vital chart was started 14:04:56 Time tracking: Regular hours (M-F 7:00 - 5:00) 14:05:06 Plan of Care:Hemodynamics will remain stable., Cardiac rhythm will remain stable., Comfort level will be maintained., Respiratory function will remain adequate., Patient/ family verbilizes understanding of procedure., Procedure tolerated without complication., Recovers from procedure without complications.. 14:05:22 Patient received from Med/Surg to IR Alert and oriented. Tansferred to table in Prone position. 14:05:29 Signed procedure consent form obtained from patient. 14:05:31 ECG and BP/O2 sat monitors applied to patient. 14:05:33 Baseline sample Acquired. 14:05:34 Full Disclosure recording started 14:05:36 - 14:05:51 H&P Date Dictated: 07/14/2019 Within 30 days and on chart.. 14:05:53 Pre-procedure instructions explained to patient. 14:05:54 Pre-op teaching completed and patient verbalized understanding. 14:06:00 Family unavailable. 14:06:03 Patient NPO since Midnight. 14:06:17 Patient allergic to No known allergies 14:09:14 Heparin Flush Bag (1000units/500ml NS) 2 bags added to field was administered by Adirana Julio MD; used for procedure; Verbal order read back and verified. 14:09:25 Lidocaine 1% 20ml vial added to field was administered by Adriana kevin MD; for local anesthetic; Verbal order read back and verified. 14:09:42 Zofran 4 mg I.V. was administered by Janice Jimenez RN; for nausea; Verbal order read back and verified. 14:10:59 Is the patient allergic to Iodine/contrast media? No. 14:11:07 Is patient on blood thinner?Yes 14:11:10 Patient diabetic? No. 14:11:13 ----Pre-sedation anethsthesia assessment.---- 14:11:16 Previous problem with sedation/anesthesia? No ? 14:11:19 Snore? Yes 14:11:21 Sleep apnea? No 14:11:24 Deviated septum? No 14:11:29 Opens mouth fully? Yes 14:11:32 Sticks out tongue? Yes 14:11:41 Airway obstruction? Yes heart stents 14:11:47 Dentures? No ? 14:11:58 IV patent on arrival in left forearm with D5/.45%NaCl at O. 14:12:12 Popliteal region area was prepped with chlora-prep and draped in steril e fashion 14:12:15 - 14:13:38 Physician arrived 14:13:40 --------ALL STOP TIME OUT------ 14:13:41 Final Timeout: patient, procedure, and site verified with staff and physician. All members of the team are in agreement. 14:15:38 Fire Safety Assessment: A--An alcohol-based skin anteseptic being used preoperatively., C--Open oxygen or nitrous oxide is being used. 14:15:44 2) 60-89 Mildly reduced kidney function, and other findings (as for stage 1) point to kidney disease. 14:15:56 Procedure started. 14:16:21 Local anesthetic to left popliteal vein with Lidocaine 1% by Adriana Julio MD.INITIAL ACCESS ONLY 14:17:43 Benadryl 25 mg I.V. was administered by Janice Jimenez RN; Per physician ; Verbal order read back and verified. 14:17:55 Versed 1 mg I.V. was administered by Janice Jimenez RN; for sedation; Verbal order read back and verified. 14:18:06 Fentanyl 50 mcg I.V. was administered by Janice Jimenez RN; for sedation ; Verbal order read back and verified. 14:21:44 CXI Catheter 90cm ([id number]) opened to sterile field. 14:27:40 Versed 1 mg I.V. was administered by Janice Jimenez RN; for sedation; Verbal order read back and verified. 14:27:47 Fentanyl 50 mcg I.V. was administered by Janice Jimenez RN; for sedation ; Verbal order read back and verified. 14:36:43 Heparin Bolus 5000 units I.V. was administered by Janice Jimenez RN; Per physician; Verbal order read back and verified. 14:43:19 Angiojet Power Pulse Delivery Kit opened to sterile field. 14:44:47 AMPLATZ Super stiff Straight 260cm wire ([id number]) opened to sterile field. 14:45:01 ROADRUNNER .035 145 glide wire ([id number]) opened to sterile field. 14:45:13 Zelante 8Fr Angiojet catheter opened to sterile field. 14:48:11 Versed 1 mg I.V. was administered by Janice Jimenez RN; for sedation; Verbal order read back and verified. 14:48:20 Fentanyl 50 mcg I.V. was administered by Janice Jimenez RN; for sedation ; Verbal order read back and verified. 15:03:01 Procedure ended.(Physican Out) 15:03:23 Fluoroscopy time 07.00 minutes. 15:03:26 Fluoroscopy dose: 323 mGy 15:03:26 Flurop Dose total: 323 15:03:38 Contrast amount:Isovue 300 75ml. 15:03:40 Procedure and supply charges have been captured, reviewed, submitted an d are correct. 15:05:55 Report given to Med/Surg. 15:06:17 Vital chart was stopped Device Usage Item Name Manufacture Quantity Catalog Hospital Part Current Minim al Lot# / Number Charge Number Stock Stock Serial# Code Tegaderm 4 x 3M 1 1626W [id number] 5 4 (1626W) Sterile Cardinal 1 [id number] 241526 071685 5 Angiographic Health Pack Bag Decanter Microtek 1 2001S 374762 51612 287222 5 (2002S) [employer] Inc[employer] BENTSON 145cm [facility] 1 [id number] 137404 641530 5 wire ([id number]) Micropuncture VSI VASCULAR 1 7266V 037003 610865 5 VSI 4FR kit SOLUTIONS Sheath 8fr. Terumo 1 [id number] 856605 6896667 5 Hanover 10cm CXI Catheter [facility] 1 [id number] 140315 165481 582852 5 [id number] 90cm (Q40026) Angiojet [employer] 4 [id number] 778325 874442 890780 5 Power Pulse Scientific Delivery Kit AMPLATZ Super [place] 1 [id number] 386386 43282 638840 5 stiff Scientific Straight 260cm wire ([id number]) [facility] [place] 1 D93951 444465 486232 810511 5 .035 145 glide wire ([id number]) Zelante 8Fr [place] 1 [id number] 061498 502813 741843 5 Angiojet Scientific catheter Signature Audit [place] Stage Time Signature Unsigned Intra-Procedure 07/14/2019 Emily Garcia 3:06:12 PM RT(R) [facility] [address] [place] [address]
--- NOTE | ~2019-07-12 | HEMODYNAMI ---
PATIENT:ADRIANA MASON MEDICAL RECORD: [id number] : 51 [facility] DATE: 07/12/19 Generatedon:07/20/201917:57 Patient name: ADRIANA MASON Patient #: [id number] SSN: [id number] : 1955 Date of study: 07/20/2019 Page: Of Hemodynamic Procedure Report Patient Data Patient Demographics Procedure consent was obtained First Name: ADRIANA Gender: Male Last Name: ISABELLA : 1955 Middle Initial: CHANTELLE Age: 64 year(s) Patient #: [id number] Race: SSN: [id number] Additional ID: [id number] Contact details Address: [address] [place] [address] State: [place] City: [place] Zip code: [address] Past Medical History Allergies: No known allergies Admission Admission Data Admission Date: 07/12/2019 Admission Time: 16:15 Room #: D2302 Height (in.): 72 BSA: 2.32 (m2) Height (cm.): 182.88 BMI: 33.23 (kg/m2) Weight (lbs.): 245 Weight (kg.): 111.13 Procedure Procedure Types Cath Procedure Peripheral vascular Intervention Thrombolysis/Thrombectomy Thrombolysis Catheter Removal Procedure Description Procedure Date Procedure Date: 07/20/2019 Procedure Start Time: 17:03 Procedure End Time: 17:56 Procedure Staff Name Function Biju Poe MD Performing Physician SARAH KISER RT Monitor Tran Waldrop RN Nurse Janice Jimenez RN Nurse Kristopher Guardado RT Scrub Procedure Data Cath Procedure Fluoroscopy Diagnostic fluoroscopy Total fluoroscopy Time: 7.7 time: 7.7 min min Diagnostic fluoroscopy Total fluoroscopy dose: 593 dose: 593 mGy mGy Contrast Material Contrast Material Type Amount (ml) Isovue 300 110 Procedure Medications Medication Administration Route Dosage Heparin Flush Bag added to field 1 bags (1000units/500ml NS) Lidocaine 1% added to field 20 Versed I.V. 1 mg Fentanyl I.V. 50 mcg Versed I.V. 1 mg Fentanyl I.V. 50 mcg Heparin Bolus I.V. 5000 units Versed I.V. 1 mg Fentanyl I.V. 50 mcg Benadryl I.V. 50 mg Versed I.V. 1 mg Fentanyl I.V. 50 mcg Hemodynamics Rest BSA: 2.32 (m2) O2 Consumption: Estimated: 284.64 (ml/min) O2 Consumption indexed : Estimated:122.69 (ml/min/m) Heart Rate: 87 (bpm) Snapshots Pre Cath Intra NCS Post Cath Vital Signs Time Heart Resp SPO2 etCO2 NIBP (mmHg) Rhythm Pain Status Sedation Rate (ipm) (%) (mmHg) Level (bpm) 16:55:18 85 12 100 16.8 152/85(113) NSR 0 (11) , No 10(A) pain 16:59:36 85 12 100 33.6 150/83(115) NSR 4 (11) , 8(A) Distressing 17:03:54 12 97 32 147/86(116) NSR 2 (11) , 8(A) Uncomfortable 17:08:22 85 10 100 29.7 141/65(133) NSR 4 (11) , 8(A) Distressing 17:12:44 83 13 97 35.9 137/78(111) NSR 2 (11) , 8(A) Uncomfortable 17:16:54 84 25 99 39.7 137/85(99) NSR 2 (11) , 8(A) Uncomfortable 17:21:53 82 15 98 26.7 Measuring NSR 2 (11) , 8(A) Uncomfortable 17:21:57 82 15 99 26.7 125/80(116) NSR 2 (11) , 8(A) Uncomfortable 17:26:56 86 15 89 31.3 Measuring NSR 2 (11) , 8(A) Uncomfortable 17:27:00 100 14 86 37.4 141/76(123) NSR 2 (11) , 8(A) Uncomfortable 17:31:17 89 17 96 38.2 157/98(119) NSR 2 (11) , 8(A) Uncomfortable 17:35:35 85 17 99 37.4 158/93(128) NSR 2 (11) , 8(A) Uncomfortable 17:39:59 86 20 100 38.2 160/88(126) NSR 2 (11) , 8(A) Uncomfortable 17:44:17 85 19 99 32 149/96(125) NSR 0 (11) , No 8(A) pain 17:48:33 89 19 98 36.6 149/98(133) NSR 0 (11) , No 8(A) pain 17:52:53 86 19 100 31.3 156/93(137) NSR 0 (11) , No 8(A) pain Medications Time Medication Route Dose Verified Delivered Reason Notes Effec tiveness by by 16:52:32 Heparin Flush added 1 Biju Ivy used for Bag to bags Deepika Poe MD procedure (1000units/500ml field MORA NS) 16:52:53 Lidocaine 1% added 20ml Biju Ivy used for to vial Deepika Poe MD procedure field MORA 16:55:22 Fentanyl I.V. 50 Biju Tran for mcg Benjie Poe RN sedation 16:58:10 Versed I.V. 1 mg Biju Tran for Benjie Poe RN sedation 17:02:26 Versed I.V. 1 mg Biju Tran for Benjie Poe RN sedation 17:02:36 Fentanyl I.V. 50 Biju Tran for mcg Benjie Poe RN sedation 17:06:39 Heparin Bolus I.V. 5000 Biju Tran used for units Benjie Poe RN procedure 17:09:17 Versed I.V. 1 mg Biju Tran for Benjie Poe RN sedation 17:09:26 Fentanyl I.V. 50 Biju Tran for mcg Benjie Poe RN sedation 17:19:51 Benadryl I.V. 50 mg Biju Tran used for Benjie Poe RN procedure 17:40:17 Versed I.V. 1 mg Biju Tran for Benjie Poe RN sedation 17:40:29 Fentanyl I.V. 50 Biju Tran for mcg Benjie Poe RN sedation Procedure Log Time Note 16:21:46 Patient Height : 72 inches 16:21:46 Patient Weight : 245 lbs 16:25:45 Use device set IR Diagnostic 16:25:46 Bag Decanter (2002S) opened to sterile field. 16:25:46 Sterile Angiographic Pack opened to sterile field. 16:25:47 Tegaderm 4 x 4 (1626W) opened to sterile field. 16:25:56 - 16:28:31 Tran Waldrop RN sent for patient. Start room use. 16:28:33 Time tracking: Regular hours (M-F 7:00 - 5:00) 16:28:39 Plan of Care:Hemodynamics will remain stable., Cardiac rhythm will remain stable., Comfort level will be maintained., Respiratory function will remain adequate., Patient/ family verbilizes understanding of procedure., Procedure tolerated without complication., Recovers from procedure without complications.. 16:28:58 Patient received from ICU to IR Alert and oriented. Transferred to tab e in prone position. 16:29:01 Signed procedure consent form obtained from patient. 16:29:02 Warm blankets applied, and gabriella hugger turned on for patient comfort. 16:29:03 Correct patient and procedure confirmed by team. 16:29:06 ECG and BP/O2 sat monitors applied to patient. 16:29:08 - 16:29:14 H&P Date Dictated: 07/20/2019 Within 30 days and on chart.. 16:30:06 Pre-procedure instructions explained to patient. 16:30:06 Pre-op teaching completed and patient verbalized understanding. 16:30:11 Family in waiting room. 16:30:12 Patient NPO since Midnight. 16:30:53 Patient allergic to No known allergies 16:30:55 Is the patient allergic to Iodine/contrast media? No. 16:30:57 Is patient on blood thinner?No 16:31:00 Patient diabetic? No. 16:31:01 - 16:31:03 ----Pre-sedation anethsthesia assessment.---- 16:31:15 Previous problem with sedation/anesthesia? No ? 16:31:17 Snore? Yes 16:31:18 Sleep apnea? No 16:31:19 Deviated septum? No 16:31:20 Opens mouth fully? Yes 16:31:26 Sticks out tongue? Yes 16:31:33 Airway obstruction? Yes heart stents 16:31:44 Dentures? No ? 16:31:46 - 16:32:25 IV patent on arrival in right forearm with 0.9% NaCl at KVO. 16:32:33 Left Pedal was prepped with betadine and draped in sterile fashion. 16:32:35 - 16:52:32 Heparin Flush Bag (1000units/500ml NS) 1 bags added to field was administered by Biju Poe MD; used for procedure; Verbal order read back and verified. 16:52:53 Lidocaine 1% 20ml vial added to field was administered by Biju Poe MD; used for procedure; Verbal order read back and verified. 16:54:06 Vital chart was started 16:54:07 Baseline sample Acquired. 16:54:08 Full Disclosure recording started 16:55:22 Fentanyl 50 mcg I.V. was administered by Tran Waldrop RN; for sedation; Verbal order read back and verified. 16:57:27 Physician arrived 16:57:28 --------ALL STOP TIME OUT------ 16:57:30 Final Timeout: patient, procedure, and site verified with staff and physician. All members of the team are in agreement. 16:57:38 Left pedal site verified by team. 16:57:59 2) 60-89 Mildly reduced kidney function, and other findings (as for stage 1) point to kidney disease. 16:58:10 Versed 1 mg I.V. was administered by Tran Waldrop RN; for sedation; Verbal order read back and verified. 17:00:06 Procedure started. 17:02:26 Versed 1 mg I.V. was administered by Tran Waldrop RN; for sedation; Verbal order read back and verified. 17:02:36 Fentanyl 50 mcg I.V. was administered by Tran Waldrop RN; for sedation; Verbal order read back and verified. 17:06:39 Heparin Bolus 5000 units I.V. was administered by Tran Waldrop RN; used for procedure; Verbal order read back and verified. 17:09:17 Versed 1 mg I.V. was administered by Tran Waldrop RN; for sedation; Verbal order read back and verified. 17:09:26 Fentanyl 50 mcg I.V. was administered by Tran Waldrop RN; for sedation; Verbal order read back and verified. 17:12:02 CHOICE PT Extra Support J 300cm guide wire ([id number]) opened to steril e field. 17:12:02 COPILOT Valve Control ([id number]) opened to sterile field. 17:12:03 CXI Catheter 90cm (A32346) opened to sterile field. 17:19:16 Inflate balloon Inflation number: 1 A NANOCROSS ELITE 6MM X 100 X 150 ([id number]) was prepped and advanced across the Undefined1 , then inflated. 17:19:51 Benadryl 50 mg I.V. was administered by Tran Waldrop RN; used for procedure; Verbal order read back and verified. 17:21:26 Baseline sample Acquired. 17:27:25 Inflate balloon Inflation number: 2 A NAN[place]ITE 4MM X 150 X 150 ([id number]) was prepped and advanced across the Undefined1 , then inflated. 17:31:37 Inflate balloon Inflation number: 3 A NAN[place]OSS ELITE 3 X 150 X 150 ([id number]) was prepped and advanced across the Undefined1 , then inflated . 17:40:17 Versed 1 mg I.V. was administered by Tran Waldrop RN; for sedation; Verbal order read back and verified. 17:40:29 Fentanyl 50 mcg I.V. was administered by Tran Waldrop RN; for sedation; Verbal order read back and verified. 17:50:01 Procedure ended.(Physican Out) 17:50:24 Fluoroscopy time 07.70 minutes. 17:50:28 Fluoroscopy dose: 593 mGy 17:50:28 Flurop Dose total: 593 17:50:34 Contrast amount:Isovue 300 110ml. 17:54:40 Post Pedal area:stable, clean and dry 17:54:46 Post procedure instruction explained to patient.Patient verbalizes understanding. 17:54:49 Procedure and supply charges have been captured, reviewed, submitted an d are correct. 17:56:35 Patient transfered to ICU with Bed. 17:56:43 Procedure ended. 17:56:43 Full Disclosure recording stopped 17:57:21 Vital chart was stopped Intervention Summary Intervention Notes Time ActionType Lesion and Equipment Used Action# Pressure Duration Attributes 17:19:16 Inflate Undefined1 NANOCROSS ELITE 1 0 00:00 balloon 4MM X 120 X 150 ([id number]) 17:27:25 Inflate Undefined1 NANOCROSS ELITE 2 0 00:00 balloon 4MM X 120 X 150 ([id number]) 17:31:37 Inflate Undefined1 NANOCROSS ELITE 3 0 00:00 balloon 3.5 X 120 X 150 ([id number]) Device Usage Item Name Manufacture Quantity Catalog Number Hospital Part Current Minimal Lot# / Charge Number Stock Stock Serial# Code Bag Decanter Microtek 1 [id number] 68626 146695 5 () Medical Inc. Sterile Cardinal 1 [id number] 563892 5 Angiographic Health Pack Tegaderm 4 x 4 3M 1 1626W 918948 982626 001587 5 (1626W) CHOICE PT Extra [place] 1 [id number] 262649 869343 191955 5 [id number] Support J 300cm Scientific guide wire ([id number]) COPILOT Valve Rodriguez 1 [id number] 711906 334032 087204 5 Control Vascular ([id number]) CXI Catheter Cook Medical 1 [id number] 369769 170861 362158 5 [id number] 90cm (L70965) NANOCROSS ELITE Medtronic 2 [id number] 742465 661175 1 4MM X 120 X 150 ([id number]) NANOCROSS ELITE Medtronic 1 [id number] 537754 21705 078748 1 3.5 X 120 X 150 ([id number]) Signature Audit [place] Stage Time Signature Unsigned Intra-Procedure 07/20/2019 SARAH KISER RT 5:57:18 PM (R) [facility] [address] [place] [address]
--- NOTE | ~2019-07-12 | HEMODYNAMI ---
PATIENT:ADRIANA MASON MEDICAL RECORD: [id number] : 51 [facility] DATE: 07/12/19 Generatedon:07/19/201916:57 Patient name: ADRIANA MASON Patient #: [id number] SSN: [id number] : 1955 Date of study: 07/19/2019 Page: Of Hemodynamic Procedure Report Patient Data Patient Demographics Procedure consent was obtained First Name: ADRIANA Gender: Male Last Name: ISABELLA : 1955 Middle Initial: CHANTELLE Age: 64 year(s) Patient #: [id number] Race: SSN: [id number] Additional ID: [id number] Contact details Address: [address] [place] [address] State: [place] City: [place] Zip code: [address] Past Medical History Allergies: No known allergies Admission Admission Data Admission Date: 07/12/2019 Admission Time: 16:15 Room #: [facility] Height (in.): 72 BSA: 2.32 (m2) Height (cm.): 182.88 BMI: 33.23 (kg/m2) Weight (lbs.): 245 Weight (kg.): 111.13 Procedure Procedure Types Cath Procedure Peripheral vascular Intervention Thrombolysis/Thrombectomy Thrombolysis Catheter Removal Procedure Description Procedure Date Procedure Date: 07/19/2019 Procedure Start Time: 15:42 Procedure End Time: 16:57 Procedure Staff Name Function Adriana Julio MD Performing Physician SARAH KISER RT Monitor Tran Waldrop RN Nurse Kristopher Guardado RT Scrub Procedure Data Cath Procedure Fluoroscopy Diagnostic fluoroscopy Total fluoroscopy Time: 8 time: 8 min min Diagnostic fluoroscopy Total fluoroscopy dose: 139 dose: 139 mGy mGy Contrast Material Contrast Material Type Amount (ml) Isovue 300 60 Procedure Medications Medication Administration Route Dosage Heparin Flush Bag added to field 1 bags (1000units/500ml NS) Versed I.V. 1 mg Fentanyl I.V. 50 mcg Versed I.V. 1 mg Fentanyl I.V. 50 mcg Ancef (1Gm/50ml NS) I.V.P.B 1 g Fentanyl I.V. 50 mcg Versed I.V. 1 mg Heparin Bolus I.V. 5000 units Versed I.V. 1 mg Fentanyl I.V. 50 mcg Versed I.V. 1 mg Fentanyl I.V. 50 mcg Fentanyl I.V. 50 mcg Hemodynamics Rest BSA: 2.32 (m2) O2 Consumption: Estimated: 288.22 (ml/min) O2 Consumption indexed : Estimated:124.23 (ml/min/m) Heart Rate: 91 (bpm) Snapshots Pre Cath Intra NCS Post Cath Vital Signs Time Heart Resp SPO2 etCO2 NIBP (mmHg) Rhythm Pain Sedation Rate (ipm) (%) (mmHg) Status Level (bpm) 15:37:55 92 24 99 27 170/99(129) NSR 0 (11) 10(A) , No pain 15:42:17 89 10 99 33.1 174/102(139) NSR 0 (11) 10(A) , No pain 15:46:39 90 10 98 26.3 176/98(134) NSR 0 (11) 10(A) , No pain 15:50:57 91 19 97 28.6 152/95(139) NSR 0 (11) 10(A) , No pain 15:55:15 91 35 94 12.7 161/96(118) NSR 0 (11) 8(A) , No pain 15:59:36 89 19 97 16.5 135/95(120) NSR 0 (11) 8(A) , No pain 16:03:47 91 22 94 18.8 145/97(135) NSR 0 (11) 8(A) , No pain 16:08:03 89 17 98 22.5 160/96(132) NSR 0 (11) 8(A) , No pain 16:12:26 90 16 97 11.2 170/104(125) NSR 0 (11) 8(A) , No pain 16:16:46 88 29 98 15.8 174/100(130) NSR 0 (11) 8(A) , No pain 16:21:06 88 31 96 18.8 173/99(142) NSR 0 (11) 8(A) , No pain 16:25:32 88 18 97 26.3 183/101(130) NSR 0 (11) 8(A) , No pain 16:30:05 85 25 96 30.8 171/91(145) NSR 0 (11) 8(A) , No pain 16:34:31 89 23 97 0 175/106(147) NSR 0 (11) 8(A) , No pain 16:38:59 88 13 98 25.5 189/109(139) NSR 0 (11) 8(A) , No pain 16:43:27 89 7 93 24.8 187/106(137) NSR 0 (11) 8(A) , No pain 16:48:26 91 24 97 11.3 Measuring NSR 0 (11) 8(A) , No pain 16:48:49 93 19 95 10.5 169/156(163) NSR 0 (11) 8(A) , No pain 16:53:11 87 20 94 2.2 175/100(139) NSR 0 (11) 8(A) , No pain 16:57:11 0 No Cuff NSR 0 (11) 8(A) , No pain Medications Time Medication Route Dose Verified Delivered Reason Notes Effe ctiveness by by 15:43:47 Heparin Flush added 1 Adriana Tamayo used for Bag to bags Sumanth Julio procedure (1000units/500ml field MD MORA NS) 15:44:03 Versed I.V. 1 mg Adriana Cantori for Sumanth Waldrop RN sedation 15:44:14 Fentanyl I.V. 50 Adriana Cantori for mcg Sumanth Waldrop RN sedation 15:50:25 Versed I.V. 1 mg Adriana Cantori for Sumanth Wadlrop RN sedation 15:50:31 Fentanyl I.V. 50 Adriana Cantori for mcg Sumanth Waldrop RN sedation 15:51:49 Ancef (1Gm/50ml I.V.P.B 1 g Adriana Cantori used for NS) Sumanth Waldrop customs inspector 15:54:49 Fentanyl I.V. 50 Adriana Cantori for mcg Sumanth Waldrop RN sedation 15:54:58 Versed I.V. 1 mg Adriana Cantori for Sumanth Waldrop RN sedation 15:59:05 Heparin Bolus I.V. 5000 Adriana Mayfield used for [facility] Sumanth Waldrop RN procedure 16:08:30 Versed I.V. 1 mg Adriana Cantori for Sumanth Waldrop RN sedation 16:08:38 Fentanyl I.V. 50 Adriana Tran for [facility] Sumanth Waldrop RN sedation 16:28:58 Versed I.V. 1 mg Adriana Cantori for Sumanth Waldrop RN sedation 16:29:37 Fentanyl I.V. 50 Adriana Tran for [facility] Sumanth Waldrop RN sedation 16:47:47 Fentanyl I.V. 50 Adriana Tran for [facility] Sumanth Waldrop RN sedation Procedure Log Time Note 15:04:14 Patient Height : 72 inches 15:04:14 Patient Weight : 245 lbs 15:26:11 Tran Waldrop RN sent for patient. Start room use. 15:26:12 Time tracking: Regular hours (M-F 7:00 - 5:00) 15:26:16 Plan of Care:Hemodynamics will remain stable., Cardiac rhythm will remain stable., Comfort level will be maintained., Respiratory function will remain adequate., Patient/ family verbilizes understanding of procedure., Procedure tolerated without complication., Recovers from procedure without complications.. 15:26:22 Patient received from ICU to IR Alert and oriented. Tansferred to table in Supine position. 15:26:23 Signed procedure consent form obtained from patient. 15:26:25 Warm blankets applied, and gabriella hugger turned on for patient comfort. 15:26:25 Correct patient and procedure confirmed by team. 15:26:27 ECG and BP/O2 sat monitors applied to patient. 15:26:28 - 15:26:34 H&P Date Dictated: 07/19/2019 Within 30 days and on chart.. 15:26:36 Pre-procedure instructions explained to patient. 15:26:36 Pre-op teaching completed and patient verbalized understanding. 15:26:38 Family in waiting room. 15:26:40 Patient NPO since Midnight. 15::49 Patient allergic to No known allergies 15::51 Is the patient allergic to Iodine/contrast media? No. 15::34 Is patient on blood thinner?No 15::36 Patient diabetic? No. 15::38 - 15::40 ----Pre-sedation anethsthesia assessment.---- 15::43 Snore? Yes 15::44 Sleep apnea? No 15::45 Deviated septum? No 15:46 Opens mouth fully? Yes 15::47 Sticks out tongue? Yes 15::51 Airway obstruction? Yes heart stents 15::58 - 15:28:35 IV patent on arrival in left hand with 0.9% NaCl at KVO. 15::58 Right Pedal was prepped with betadine and draped in sterile fashion. 15:30:00 - 15:36:38 Vital chart was started 15:36:40 Baseline sample Acquired. 15:36:46 Full Disclosure recording started 15:36:48 - 15:38:54 Physician arrived 15:39:20 --------ALL STOP TIME OUT------ 15:39:59 Left pedal site verified by team. 15:40:48 Procedure started. 15:43:47 Heparin Flush Bag (1000units/500ml NS) 1 bags added to field was administered by Adriana Julio MD; used for procedure; Verbal order read back and verified. 15:44:03 Versed 1 mg I.V. was administered by Tran Waldrop RN; for sedation; Verbal order read back and verified. 15:44:14 Fentanyl 50 mcg I.V. was administered by Tran Waldrop RN; for sedation; Verbal order read back and verified. 15:45:29 - 15:45:33 Use device set IR Diagnostic 15:45:34 Tegaderm 4 x 4 (1626W) opened to sterile field. 15:45:35 Sterile Angiographic Pack opened to sterile field. 15:45:35 Bag Decanter () opened to sterile field. [facility] glide [facility] (U79256) opened to sterile field. 15:48:32 SHEATH 5FR [place] (IVU708) opened to sterile field. 15:50:25 Versed 1 mg I.V. was administered by Tran Waldrop RN; for sedation; Verbal order read back and verified. 15:50:31 Fentanyl 50 mcg I.V. was administered by Tran Waldrop RN; for sedation; Verbal order read back and verified. 15:50:51 CXI Catheter 90cm (S92480) opened to sterile field. 15:51:49 Ancef (1Gm/50ml NS) 1 g I.V.P.B was administered by Tran Waldrop RN; used for procedure; Verbal order read back and verified. 15:54:49 Fentanyl 50 mcg I.V. was administered by Tran Waldrop RN; for sedation; Verbal order read back and verified. 15:54:56 COPILOT Valve Control (8018586) opened to sterile field. 15:54:56 CHOICE PT Extra Support J 300cm guide wire ([id number]) opened to steril e field. 15:54:58 Versed 1 mg I.V. was administered by Tran Waldrop RN; for sedation; Verbal order read back and verified. 15:59:05 Heparin Bolus 5000 units I.V. was administered by Tran Waldrop RN; used for procedure; Verbal order read back and verified. 16:06:20 ANGIOJET 4Fr XMI Catheter ([id number]) opened to sterile field. 16:06:46 Angiojet inserted into the left pedal site 16:07:06 Angiojet catheter removed over the wire. 16:08:30 Versed 1 mg I.V. was administered by Tran Waldrop RN; for sedation; Verbal order read back and verified. 16:08:38 Fentanyl 50 mcg I.V. was administered by Tran Waldrop RN; for sedation; Verbal order read back and verified. 16:14:05 The NANOCROSS ELITE 6 X 150 X 150 ([id number]) was advanced and the n inflated 16:28:58 Versed 1 mg I.V. was administered by Tran Waldrop RN; for sedation; Verbal order read back and verified. 16:29:37 Fentanyl 50 mcg I.V. was administered by Tran Waldrop RN; for sedation; Verbal order read back and verified. 16:29:45 Inflate balloon Inflation number: 1 A NANOCROSS ELITE 3 X 150 X 150 ([id number]) was prepped and advanced across the Undefined1 , then inflated . 16:40:01 INFUSION CATHETER 10cm [place] ([id number]) opened to sterile field . 16:43:41 Procedure ended.(Physican Out) 16:47:47 Fentanyl 50 mcg I.V. was administered by Tran Waldrop RN; for sedation; Verbal order read back and verified. 16:47:57 Fluoroscopy time 08.00 minutes. 16:48:01 Fluoroscopy dose: 139 mGy 16:48:01 Flurop Dose total: 139 16:48:06 Contrast amount:Isovue 300 60ml. 16:48:32 Post-op/insertion site Left pedal dressed using a 4 x 4 and Tegaderm. 16:48:47 Post procedure instruction explained to patient.Patient verbalizes understanding. 16:48:48 Procedure and supply charges have been captured, reviewed, submitted an d are correct. 16:57:21 Vital chart was stopped 16:57:24 Procedure ended. 16:57:24 Full Disclosure recording stopped Intervention Summary Intervention Notes Time ActionType Lesion and Equipment Used Action# Pressure Duration Attributes 16:14:05 Discard NANOCROSS ELITE Balloon 2 X 4 X 150 ([id number]( 16:29:45 Inflate Undefined1 NANOCROSS ELITE 1 0 00:00 balloon 3.5 X 120 X 150 ([id number]) Device Usage Item Name Manufacture Quantity Catalog Number Hospital Part Current Minimal Lot# / Charge Number Stock Stock Serial# Code Tegaderm 4 x 4 3M 1 1626W [id number] 559344 100847 5 (1626W) Sterile Cardinal 1 [id number] 896845 109573 5 Angiographic Health Pack Bag Decanter Microtek 1 596900 77427 541636 5 (2001S) [employer] [facility] [employer] 1 [id number] 955766 933492 339349 5 [id number] 145 glide wire (Q56049) SHEATH 5FR Terumo 1 [id number] 349527 885645 523119 5 [place] (OML446) CXI Catheter [employer] 1 [id number] 595237 978083 275049 5 7579525 90cm (B92712) COPILOT Valve Rodriguez 1 [id number] 498773 709892 628350 5 Control Vascular (6754500) CHOICE PT Extra [place] 1 [id number] 889813 674204 886314 5 [id number] Support J 300cm Scientific guide wire ([id number]) ANGIOJET 4Fr XMI [place] 1 287838-835 652870 486040 033856 1 Catheter Scientific ([id number]) NANOCROSS ELITE Medtronic 1 [id number] 509930 866440 824903 1 2 X 4 X 150 ([id number]( NANOCROSS ELITE Medtronic 1 [id number] 899754 95915 468818 1 3.5 X 120 X 150 ([id number]) INFUSION Medtronic 1 28022-43 073845 106428 5 CATHETER 10cm Silverio (1678139) Signature Audit [place] Stage Time Signature Unsigned Intra-Procedure 07/19/2019 SARAH KISER RT 4:57:40 PM (R) [facility] [address] [place] [address]
--- NOTE | ~2019-07-12 | HEMODYNAMI ---
PATIENT:ADRIANA MASON MEDICAL RECORD: [id number] : 51 LOCATION:[facility].2216 ADMISSION DATE: 07/12/19 Generatedon:07/18/201913:52 Patient name: ADRIANA MASON Patient #: [id number] SSN: [id number] : 1955 Date of study: 07/18/2019 Page: Of Hemodynamic Procedure Report Patient Data Patient Demographics Procedure consent was obtained First Name: ADRIANA Gender: Male Last Name: ISABELLA : 1955 Middle Initial: TYRON Age: 64 year(s) Patient #: [id number] Race: SSN: [id number] Additional ID: [id number] Contact details [address]: [address] [place] [address] State: [place] City: [place] Zip code: [address] Past Medical History Allergies: No known allergies Admission Admission Data Admission Date: 07/12/2019 Admission Time: 16:15 Room #: [facility]6 Height (in.): 72 BSA: 2.32 (m2) Height (cm.): 182.88 BMI: 33.23 (kg/m2) Weight (lbs.): 245 Weight (kg.): 111.13 Procedure Procedure Types Cath Procedure Peripheral Cath Diagnostic Procedure Venography Extremity Left Lower Ext. Venagram Procedure Description Procedure Date Procedure Date: 07/18/2019 Procedure Start Time: 12:58 Procedure End Time: 13:51 Procedure Staff Name Function Tyron Edwards MD Performing Physician SARAH KISER RT Monitor Janice Jimenez RN Nurse Kristopher Guardado RT Scrub Procedure Data Cath Procedure Fluoroscopy Diagnostic fluoroscopy Total fluoroscopy Time: 2.2 time: 2.2 min min Contrast Material Contrast Material Type Amount (ml) Isovue 300 0 Procedure Medications Medication Administration Route Dosage Heparin Flush Bag added to field 3 bags (1000units/500ml NS) Lidocaine 1% added to field 20 Versed I.V. 1 mg Fentanyl I.V. 100 mcg Versed I.V. 1 mg Versed I.V. 1 mg Fentanyl I.V. 50 mcg Versed I.V. 1 mg Fentanyl I.V. 50 mcg Hemodynamics Rest BSA: 2.32 (m2) O2 Consumption: Estimated: 279.12 (ml/min) O2 Consumption indexed : Estimated:120.31 (ml/min/m) Heart Rate: 80 (bpm) Snapshots Pre Cath Intra NCS Post Cath Vital Signs Time Heart Resp SPO2 etCO2 NIBP (mmHg) Rhythm Pain Sedation Rate (ipm) (%) (mmHg) Status Level (bpm) 12:36:16 79 17 93 0 No Cuff NSR 0 (11) 10(A) , No pain 12:37:46 75 25 95 0 137/75(120) NSR 0 (11) 10(A) , No pain 12:41:59 80 21 98 32.4 145/78(114) NSR 0 (11) 10(A) , No pain 12:46:57 75 11 98 24.1 Measuring NSR 0 (11) 10(A) , No pain 12:48:19 75 9 98 19.6 Time NSR 0 (11) 10(A) Exceeded , No pain 12:52:52 79 0 99 18.8 141/66(115) NSR 0 (11) 10(A) , No pain 12:56:58 80 12 99 33.2 141/119(129) NSR 0 (11) 10(A) , No pain 13:01:16 67 23 92 12.8 140/75(109) NSR 0 (11) 8(A) , No pain 13:05:32 80 18 92 28.6 126/75(100) NSR 0 (11) 8(A) , No pain 13:10:31 80 19 98 10.5 Measuring NSR 0 (11) 8(A) , No pain 13:11:43 80 21 96 14.3 133/70(94) NSR 0 (11) 8(A) , No pain 13:15:52 73 11 96 36.9 133/118(126) NSR 0 (11) 8(A) , No pain 13:20:51 78 17 98 9.8 Measuring NSR 0 (11) 8(A) , No pain 13:20:58 80 18 97 0 128/79(113) NSR 0 (11) 8(A) , No pain 13:25:48 78 19 95 12 158/87(134) NSR 0 (11) 8(A) , No pain 13:30:14 74 14 98 28.6 122/69(109) NSR 0 (11) 8(A) , No pain 13:35:14 76 16 98 10.5 Measuring NSR 0 (11) 10(A) , No pain 13:35:53 79 17 98 14.3 134/74(99) NSR 0 (11) 10(A) , No pain 13:40:11 75 9 98 2.2 146/73(95) NSR 0 (11) 10(A) , No pain 13:44:33 73 19 99 17.3 138/75(107) NSR 0 (11) 10(A) , No pain 13:48:49 68 12 97 24.1 144/89(123) NSR 0 (11) 10(A) , No pain Medications Time Medication Route Dose Verified Delivered Reason Notes Effe ctiveness by by 12:35:34 Heparin Flush added 3 Tyron Ackerman for local Bag to bags Edwards Edwards anesthetic (1000units/500ml field MD MORA NS) 12:35:46 Lidocaine 1% added 20ml Tyron Ackerman for local to vial Edwards Edwards anesthetic field MD MORA 12:57:24 Versed I.V. 1 mg Tyron Camacho for Edwards Tony RN sedation 12:57:36 Fentanyl I.V. 100 Tyron Janice for mcg Edwards Tony RN sedation 12:59:36 Versed I.V. 1 mg Tyron Janice for Edwards Tony RN sedation 13:09:24 Versed I.V. 1 mg Tyron Janice for Edwards Tony RN sedation 13:09:35 Fentanyl I.V. 50 Tyron Janice for mcg Edwards Tony RN sedation 13:32:23 Versed I.V. 1 mg Tyron Janice for Edwards Tony RN sedation 13:32:30 Fentanyl I.V. 50 Tyron Janice for mcg Edwards Tony RN sedation Procedure Log Time Note 11:53:24 Patient Height : 72 inches 11:53:24 Patient Weight : 245 lbs 12:17:01 Kristopher Guardado RT (R) (CV) sent for patient. Start room use. 12:17:02 Time tracking: Regular hours (M-F 7:00 - 5:00) 12:17:07 Plan of Care:Hemodynamics will remain stable., Cardiac rhythm will remain stable., Comfort level will be maintained., Respiratory function will remain adequate., Patient/ family verbilizes understanding of procedure., Procedure tolerated without complication., Recovers from procedure without complications.. 12:17:46 Patient received from Med/Surg to IR Alert and oriented. Tansferred to table in Supine position. 12:17:48 Signed procedure consent form obtained from patient. 12:17:50 Warm blankets applied, and gabriella hugger turned on for patient comfort. 12:17:51 Correct patient and procedure confirmed by team. 12:17:52 ECG and BP/O2 sat monitors applied to patient. 12:17:54 - 12:18:16 H&P Date Dictated: 07/18/2019 Within 30 days and on chart.. 12:18:19 Pre-procedure instructions explained to patient. 12:18:19 Pre-op teaching completed and patient verbalized understanding. 12:18:23 Patient NPO since Midnight. 12:18:31 Patient allergic to No known allergies 12:18:37 Is the patient allergic to Iodine/contrast media? No. 12:21:02 Is patient on blood thinner?No 12:21:10 Patient diabetic? No. 12:21:14 - 12:21:27 ----Pre-sedation anethsthesia assessment.---- 12:21:31 Snore? Yes 12:21:35 Previous problem with sedation/anesthesia? No ? 12:21:44 Sleep apnea? No 12:21:45 Deviated septum? No 12:21:47 Opens mouth fully? Yes 12:21:48 Sticks out tongue? Yes 12:21:52 Airway obstruction? Yes heart stents 12:21:56 Dentures? No ? 12:22:30 - 12:24:11 IV patent on arrival in left hand with 0.9% NaCl at [facility]. 12:25:21 Left Pedal was prepped with chlora-prep and draped in sterile fashion. 12:31:19 MICROPUNCTURE 4FR [employer]water Bio ([id number]) opened to sterile field. 12:35:12 Vital chart was started 12:35:34 Heparin Flush Bag (1000units/500ml NS) 3 bags added to field was administered by Tyron Edwards MD; for local anesthetic; Verbal order read back and verified. 12:35:46 Lidocaine 1% 20ml vial added to field was administered by Tyron Edwards MD; for local anesthetic; Verbal order read back and verified. 12:39:41 Baseline sample Acquired. 12:41:14 Use device set IR Diagnostic 12:41:20 Bag Decanter () opened to sterile field. 12:41:20 Sterile Angiographic Pack opened to sterile field. 12:41:21 Tegaderm 4 x 4 ([id number]) opened to sterile field. 12:44:34 - 12:48:11 Physician arrived 12:50:12 --------ALL STOP TIME OUT------ 12:54:57 Left pedal site verified by team. 12:55:34 Procedure started. 12:55:34 Full Disclosure recording started 12:57:24 Versed 1 mg I.V. was administered by Janice Jimenez RN; for sedation; Verbal order read back and verified. 12:57:36 Fentanyl 100 mcg I.V. was administered by Janice Jimenez RN; for sedation; Verbal order read back and verified. 12:59:36 Versed 1 mg I.V. was administered by Janice Jimenez RN; for sedation; Verbal order read back and verified. 13:09:24 Versed 1 mg I.V. was administered by Janice Jimenez RN; for sedation; Verbal order read back and verified. 13:09:35 Fentanyl 50 mcg I.V. was administered by Janice Jimenez RN; for sedation ; Verbal order read back and verified. 13:20:49 Access obtained with 4Fr micropunture. 13:31:34 ROADRUNNER .035 145 glide wire ([id number]) opened to sterile field. 13:32:23 Versed 1 mg I.V. was administered by Janice Jimenez RN; for sedation; Verbal order read back and verified. 13:32:30 Fentanyl 50 mcg I.V. was administered by Janice Jimenez RN; for sedation ; Verbal order read back and verified. 13:32:30 ROADRUNNER .035 145 glide wire ([id number]) opened to sterile field. 13:34:21 GLIDE CATHETER 4FR Straight 100cm (CG413) opened to sterile field. 13:40:16 Procedure ended.(Physican Out) 13:40:44 Fluoroscopy time 02.20 minutes. 13:40:48 Dose Area Product 59 mGy/cm. 13:40:53 Contrast amount:Isovue 300 85ml. 13:45:48 Post procedure instruction explained to patient.Patient verbalizes understanding. 13:45:49 Procedure and supply charges have been captured, reviewed, submitted an d are correct. 13:51:29 Vital chart was stopped 13:51:35 See physician's report for complete and final results. 13:51:41 Patient transfered to ICU with Bed. 13:51:48 Procedure ended. 13:51:48 Full Disclosure recording stopped Device Usage Item Name Manufacture Quantity Catalog Hospital Part Current Minima l Lot# / Number Charge Number Stock Stock Serial# Code MICROPUNCTURE [facility] 1 [id number] 5 4FR Bluewater Bio ([id number]) Bag Decanter Microtek 1 2001S 209267 18293 [id number] 5 (2001S) [employer] Sterile Cardinal 1 [id number] [id number] 5 Angiographic Health Pack Tegaderm 4 x 3M 1 1626W 159830 498665 [id number] 5 4 (1626W) [facility] 2 [id number] [id number] [id number] [id number] 5 [id number] .035 145 [id number] glide wire ([id number]) GLIDE Terumo 1 CG413 167949 669708 5 CATHETER 4FR Straight 100cm (CG413) Signature Audit [place] Stage Time Signature Unsigned Intra-Procedure 07/18/2019 SARAH KISER RT 1:52:12 PM (R) [facility] [address] [place] [address]
[~2019-07-12 13:10] MED LIST changes: -MUSCLE RELAXER
[2019-07-12 14:06] LABS: CALC OSMOLALITY 281 mosm/kg (275-300); CALCIUM 9.3 mg/dL (8.5-10.1); CHLORIDE - SERUM 103 mmol/L (98-107); CREATININE - SERUM 1.4 mg/dL (0.6-1.3); GLUCOSE 121 mg/dL (74-106); POTASSIUM - SERUM 4.1 mmol/L (3.5-5.1); SODIUM 140 mmol/L (136-145); UREA NITROGEN 17 mg/dL (7-18); eGFR NON AFRICAN AMERICAN 54 mL/min (90-120)
[2019-07-12 14:07] LABS: APTT 28.1 SECONDS (22.8-39.4); INR 1.27 (0.85-1.17); PROTIME 15.8 SECONDS (11.6-15.0)
[2019-07-12 14:15] LABS: BASOPHILS 0.2 % (0-2); EOSINOPHILS 0.7 % (0-7); HEMATOCRIT 46.1 % (42.0-54.0); HEMOGLOBIN 15.7 g/dL (13.5-17.5); IMMATURE GRANULOCYTES 0.6 % (0-5); MCH 31.5 pg (26.0-34.0); MCHC 34.1 g/dL (31.0-37.0); MCV 92.4 fL (80.0-100.0); MONOCYTES 11.4 % (2-11); NEUTROPHILS 80.1 % (40-80); RBC 4.99 10x6/uL (4.20-6.10); RDW 12.6 % (11.5-14.5); WBC 13.6 10x3/uL (4.8-10.8)
[2019-07-12 14:19] LABS: PLATELET COUNT 162 10x3/uL (130-400)
[2019-07-12 14:21] LABS: ALBUMIN 3.6 g/dL (3.4-5.0); ALKALINE PHOSPHATASE 84 U/L (46-116); ALT (SGPT) 37 U/L (10-68); BILIRUBIN - TOTAL 0.87 mg/dL (0.2-1.3); CKMB 1.5 U/L (0.0-3.6); CREATINE KINASE 182 UL (21-232); MAGNESIUM - SERUM 1.9 mg/dL (1.8-2.4); PROTEIN - SERUM 7.3 g/dL (6.4-8.2); TROPONIN-I < 0.017 ng/mL (0.000-0.060)
--- NOTE | 2019-07-12 18:00 | NUR ---
PATIENT TO ROOM WITH IV INTACT. NO COMPLAINTS OR SIGNS OF DISTRESS. IV INTACT. FAMILY AT BEDSIDE. CALL LIGHT WITHIN REACH.
[2019-07-12] MEDS ORDERED: METHOCARBAMOL750 MG PO (18:09)
--- NOTE | 2019-07-12 19:30 | NUR ---
LYING IN BED C/O SEVER PAIN TO LEFT LEG AND GROIN AREA, MORPHINE AND ZOFRAN GIVEN ORDERED, VISITORS AT BEDSIDE, SEE ASSESSMENT, CALL LIGHT IN REACH
[2019-07-12 20:00] VITALS: BP 119/71
--- NOTE | 2019-07-12 21:30 | NUR ---
C/O SEVER PAIN TO LEFT LEG AND GROIN, STATES PAIN MEDICINE DID NOT WORK, DIANA LINDSEY NOTIFIED ORDERS RECIEVED WILL DC MORPHINE AND START DILAUDID, GIVEN ORDERED
[2019-07-12 22:45] LABS: CKMB 1.3 U/L (0.0-3.6); CREATINE KINASE 203 UL (21-232)
[2019-07-12 22:46] LABS: TROPONIN-I < 0.017 ng/mL (0.000-0.060)
[2019-07-12 23:47] VITALS: BP 121/72; BMI 33.3
[2019-07-13] VITALS: BP 120/61
--- NOTE | 2019-07-13 00:15 | NUR ---
PT AGAIN STATING FOR TO USE URINAL AND GOT UP TO BATHROOM AND NOW LEG IS HURTING SEVERLY AGAIN UNABLE TO LAY STILL IN BED, DIANA STATISTICAL PROGRAMMER ANALYST NOTIFIED OF CONTINUED C/O OF SEVERE PAIN AFTER ONLY 2.5 HRS, INSTRUCTED TO GIVE NEXT DOSE NOW, DILAUDID 1 MG GIVEN ORDERED
--- NOTE | 2019-07-13 03:00 | NUR ---
PT AWAKE REPORTS PAIN IS AGAIN UNBEARABLE AND REQUEST DR OR SOME COME TO SEE HIM, DIANA BILINGUAL TEACHER AIDE NOTIFIED STATES SARAH LEFT HOSPITAL ALREADY AND OR KARENA WILL SEE HIM IN AM FOR ADDITIONAL GUDELIA NMEDICATION, AND GO AHEAAD AND GIVE DOSE NOW , DILAUDID 1 MG GIVEN ORDERED, INFORMED PT OF WHAT DIANA HAD SAID AND THAT NEXT PAIN MEDICATION WOULD BE DUE AT 0700,
[2019-07-13 04:00] VITALS: BP 109/70
[2019-07-13 05:26] LABS: BASOPHILS 0.3 % (0-2); EOSINOPHILS 2.9 % (0-7); HEMATOCRIT 42.5 % (42.0-54.0); HEMOGLOBIN 14.4 g/dL (13.5-17.5); IMMATURE GRANULOCYTES 0.6 % (0-5); LYMPHOCYTES 12.7 % (15-50); MCH 31.2 pg (26.0-34.0); MCHC 33.9 g/dL (31.0-37.0); MCV 92.2 fL (80.0-100.0); MEAN PLATELET VOLUME 10.1 fL (7.4-10.4); MONOCYTES 13.7 % (2-11); NEUTROPHILS 69.8 % (40-80); PLATELET COUNT 193 10x3/uL (130-400); RBC 4.61 10x6/uL (4.20-6.10); RDW 12.5 % (11.5-14.5)
[2019-07-13 05:52] LABS: WBC 9.7 10x3/uL (4.8-10.8)
[2019-07-13 06:17] LABS: CALC OSMOLALITY 279 mosm/kg (275-300); CALCIUM 8.6 mg/dL (8.5-10.1); CHLORIDE - SERUM 103 mmol/L (98-107); CKMB 1.2 U/L (0.0-3.6); CREATINE KINASE 188 UL (21-232); CREATININE - SERUM 1.3 mg/dL (0.6-1.3); GLUCOSE 102 mg/dL (74-106); MAGNESIUM - SERUM 1.9 mg/dL (1.8-2.4); POTASSIUM - SERUM 3.6 mmol/L (3.5-5.1); SODIUM 139 mmol/L (136-145); UREA NITROGEN 18 mg/dL (7-18); eGFR NON AFRICAN AMERICAN 59 mL/min (90-120)
[2019-07-13 06:20] LABS: CARBON DIOXIDE 26.4 mmol/L (21.0-32.0); TROPONIN-I < 0.017 ng/mL (0.000-0.060)
--- NOTE | 2019-07-13 08:00 | NUR ---
AWAKE AND ALERT. ORIENTED X3. C/O INTENSE PAIN TO LEFT CALF WILL NOTIFY KARENA [employer] APN. ALERT AND ORIENTED X3. LUNGS ARE CLEAR BILATERALLY, NO COUGH NOTED. SKIN IS INTACT WITHOUT REDNESS. IV TO LEFT FOREARM IS PATENT WITHOUT REDNESS AT INSERTION SITE. AT BEDSIDE. ALL QUESTIONS ANSWERED. WILL NOTIFY MD OF PAIN. LEFT CALF IS SLIGHTLY SWOLLEN AND REDDENED. WILL MONITOR.
--- NOTE | 2019-07-13 08:25 | NUR ---
SPOKE WITH ADRIAN NGO APN RE PAIN MANAGEMENT. NEW ORDERS RECEIVED. FURNACE REPAIR MECHANIC PLACED AND PATIENT AND INSTRUCTED IN USE OF SAME. ALL QUESTIONS ANSWERED.
[2019-07-13 08:31] LABS: APPEARANCE CLEAR (CLEAR); BILIRUBIN NEGATIVE (NEGATIVE); COLOR DK YELLOW (YELLOW); GLUCOSE NEGATIVE (NEGATIVE); KETONE NEGATIVE (NEGATIVE); NITRITE NEGATIVE (NEGATIVE); PROTEIN TRACE mg/dL (NEGATIVE); SPECIFIC GRAVITY 1.015 (1.005-1.020); WHITE CELLS - URINE OCC /hpf (NEGATIVE)
[2019-07-13 08:32] LABS: BACTERIA FEW /hpf (NEGATIVE); EPITHELIAL CELLS 0-5 /hpf (0-5); MUCUS <1+ /lpf (NONE SEEN)
[2019-07-13 09:25] VITALS: BP 123/60
--- NOTE | 2019-07-13 10:49 | NUR ---
SPOKE WITH ADRIAN NGO APN RE CONTINUED PAIN. ORDERS FOR ONE TIME DOSE OF DILAUDID RECEIVED. GIVEN TO PATIENT SLOW IVP FOR PAIN LEVEL 10. WILL MONITOR.
[2019-07-13 11:18] LABS: CKMB 1.1 U/L (0.0-3.6); CREATINE KINASE 176 UL (21-232)
[2019-07-13 11:19] LABS: TROPONIN-I < 0.017 ng/mL (0.000-0.060)
[2019-07-13 13:18] VITALS: BP 123/81
--- NOTE | 2019-07-13 15:48 | NUR ---
OFF UNIT VIA BED FOR CT.
--- NOTE | 2019-07-13 16:05 | NUR ---
RETURNED FROM CT SCAN. GIVEN BOLUS DOSE OF DILAUDID. WILL MONITOR.
[2019-07-13 17:57] VITALS: BP 134/81
[2019-07-13 20:00] VITALS: BP 106/65
--- NOTE | 2019-07-13 20:00 | NUR ---
RESTING IN BED REPORTS PAIN CONTROLED WITH PIECE GOODS PACKER, FAMILY AT BEDSIDE, SEE SHIFT ASSESSMENT, PEDAL PULSES STRONG AND EQUAL , CALL LIGHT IN REACH
[2019-07-14] VITALS (9 sets, daily range): BP systolic 117–158; BP diastolic 61–90
--- NOTE | 2019-07-14 | NUR ---
EYES CLOSED RESTING QUITELY, DAUGHTER AT BEDSIDE, PEDAL PULSES CHECKED EQUAL AND STRONG
[2019-07-14 05:15] LABS: BASOPHILS 0.3 % (0-2); EOSINOPHILS 2.8 % (0-7); HEMOGLOBIN 14.3 g/dL (13.5-17.5); IMMATURE GRANULOCYTES 0.6 % (0-5); LYMPHOCYTES 11.9 % (15-50); MCV 91.1 fL (80.0-100.0); MONOCYTES 12.8 % (2-11); NEUTROPHILS 71.6 % (40-80); PLATELET COUNT 203 10x3/uL (130-400); RBC 4.61 10x6/uL (4.20-6.10); RDW 12.4 % (11.5-14.5); WBC 10.8 10x3/uL (4.8-10.8)
[2019-07-14 05:40] LABS: ANION GAP 12.8 mmol/L (8-16); CALCIUM 9.1 mg/dL (8.5-10.1); CARBON DIOXIDE 27.3 mmol/L (21.0-32.0); CREATININE - SERUM 1.2 mg/dL (0.6-1.3); POTASSIUM - SERUM 4.1 mmol/L (3.5-5.1)
--- NOTE | 2019-07-14 07:45 | NUR ---
AWAKE AND ALERT. ORIENTED X3. NO C/O AT THIS TIME. REPORTS PAIN TO LEFT LEG MUCH BETTER. LEG IS LESS RED TODAY AND CAN TOUCH IT WITHOUT PAIN. LUNGS ARE CLEAR BILATERALLY NO COUGH NOTED. SKIN IS INTACT WITHOUT REDNESS. IV TO LEFT FOREARM IS PATENT WITHOUT REDNESS AT INSERTION SITE. DENIES NEEDS.
--- NOTE | 2019-07-14 10:00 | NUR ---
ATE PART OF BREAKFAST. FAMILY AT BED SIDE. DENIES NEEDS.
[2019-07-14 13:10] LABS: ACLA - IGG AB <9 GPL U/mL (0-14); ACLA - IGM AB <9 MPL U/mL (0-12)
--- NOTE | 2019-07-14 13:48 | NUR ---
OFF UNIT VIA BED FOR VENOGRAM.
--- NOTE | 2019-07-14 15:26 | NUR ---
RETURNED FROM PROCEDURE. VSS. FAMILY AT BEDSIDE. DRESSING TO BACK OF LEFT CALF DRY AND INTACT.
--- NOTE | 2019-07-14 18:56 | NUR ---
ATE ABOUT HALF OF SUPPER. DENIES NEEDS. VSS. FAMILY AT BEDSIDE.
--- NOTE | 2019-07-14 19:15 | NUR ---
BED SIDE REPORT RECEIVED. ASSUMED CARE OF PATIENT. FAMILY LEAVING UNIT AT THIS TIME. WILL RETURN TO COMPLETE ASSESSMENT.
--- NOTE | 2019-07-14 19:45 | NUR ---
PATIENT ALERT AND ORIENTED. HOB ELEVATED TO A 40 DEGREE ANGLE. PATIENT IS CALM AND SOFT SPOKEN. ANSWERS QUESTIONS APPROPRIATELY. STATES PAIN IS "MUCH BETTER THAN BEFORE". PATIENT HAS MANAGER ASSET DILAUDID 0.2/10/0 NO LOCK OUT. VERBALIZES HOW TO USE MANAGER ASSET EFFECTIVELY. PATIENT HAS A LEFT FOREARM IV THAT IS INFUSING NS @ 30 AT THIS TIME. IV IS PATENT AND NO REDNESS OR SWELLING NOTED AROUND INSERTION SITE. PATIENT WEARING TELE MONITOR FOR CONTINUOUS CARDIAC MONITORING. ASSESSED PULSES IN RIGHT AND LOWER EXTREMETIES. LEFT PEDAL PULSE IS HARD TO FIND BUT PALPABLE. DRESSING TO THE BACK OF THE LEFT CALF. CLEAN DRY AND INTACT AT THIS TIME. DISCUSSED PLAN OF CARE FOR THE NIGHT. PATIENT DENIES FURTHER NEEDS OR QUESTIONS AT THIS TIME. CALL LIGHT IN REACH OF PATIENT. CPOC.
--- NOTE | 2019-07-14 20:30 | NUR ---
ADMINISTERED HS MEDICATIONS. PATIENT TOLERATED WELL. REQUESTS THAT HE BE ABLE TO SLEEP TONIGHT. ISNTRUCTED PATIENT THAT THIS NURSE WILL BE MONITORING HIM THROUGH THE NIGHT. PATIENT ASKED THAT MIDNIGHT VITAL SIGNS BE "PUT OFF" UNTIL AM. CPOC.
--- NOTE | 2019-07-15 00:08 | NUR ---
I have reviewed this patient and I concur with the Shift Assessment completed by the Licensed Practical Nurse today this shift.
[2019-07-15 04:00] VITALS: BP 101/66
[2019-07-15 06:15] LABS: BASOPHILS 0.3 % (0-2); EOSINOPHILS 2.1 % (0-7); HEMATOCRIT 39.7 % (42.0-54.0); HEMOGLOBIN 13.6 g/dL (13.5-17.5); IMMATURE GRANULOCYTES 0.8 % (0-5); LYMPHOCYTES 11.2 % (15-50); MCH 31.1 pg (26.0-34.0); MCHC 34.3 g/dL (31.0-37.0); MCV 90.8 fL (80.0-100.0); MEAN PLATELET VOLUME 9.8 fL (7.4-10.4); MONOCYTES 12.2 % (2-11); NEUTROPHILS 73.4 % (40-80); PLATELET COUNT 239 10x3/uL (130-400); RBC 4.37 10x6/uL (4.20-6.10); RDW 12.2 % (11.5-14.5)
[2019-07-15 06:23] LABS: CARBON DIOXIDE 28.1 mmol/L (21.0-32.0); CREATININE - SERUM 1.3 mg/dL (0.6-1.3); POTASSIUM - SERUM 4.1 mmol/L (3.5-5.1)
[2019-07-15 07:50] VITALS: BP 123/65
--- NOTE | 2019-07-15 08:00 | NUR ---
ASSESSMENT PER FLOW SHEET. PT IS WITHOUT DISTRESS. AT BEDSIDE.CALL LIGHT IN REACH
[2019-07-15 09:11] VITALS: BP 149/99
[2019-07-15 13:09] LABS: LUPUS - INTERPRETATION Comment: (()); LUPUS - THROMBIN TIME 16.4 sec (0.0-23.0); LUPUS - dRVVT 39.5 sec (0.0-47.0); PTT-LA 45.2 sec (0.0-51.9)
[2019-07-15 13:24] VITALS: BP 114/70
[2019-07-15 16:43] VITALS: BP 114/66
--- NOTE | 2019-07-15 18:45 | NUR ---
DENIES NEEDS. REMAINS WITHOUT CHANGE.CONT PLAN OF CARE
[2019-07-15 19:30] VITALS: BP 136/58
[2019-07-16 00:30] VITALS: BP 140/62
--- NOTE | 2019-07-16 01:57 | NUR ---
Patent is alert and orented able to voice needs and wants to staff. at bedside. IV to left hand with ns per orders. Dilauid NUMBERER AND WIRER in place per orders. Water and call light in reach. telemtry in place running 71 SR. Left leg with slight warmth to lower leg, elavated on a pillow for comfort .Peatal pulse paplpated. Lungs clear bilatral. No c/o pain at IV site no redness noted. Checked often for needs and safety.
[2019-07-16 05:11] VITALS: BP 123/69
[2019-07-16 05:57] LABS: BASOPHILS 0.4 % (0-2); EOSINOPHILS 5.1 % (0-7); HEMATOCRIT 38.4 % (42.0-54.0); HEMOGLOBIN 12.9 g/dL (13.5-17.5); IMMATURE GRANULOCYTES 0.9 % (0-5); LYMPHOCYTES 12.3 % (15-50); MCHC 33.6 g/dL (31.0-37.0); MCV 92.3 fL (80.0-100.0); MEAN PLATELET VOLUME 9.5 fL (7.4-10.4); MONOCYTES 13.1 % (2-11); NEUTROPHILS 68.2 % (40-80); PLATELET COUNT 243 10x3/uL (130-400); RBC 4.16 10x6/uL (4.20-6.10); RDW 12.4 % (11.5-14.5); WBC 7.8 10x3/uL (4.8-10.8)
[2019-07-16 06:15] LABS: ANION GAP 7.6 mmol/L (8-16); CALCIUM 8.6 mg/dL (8.5-10.1); CARBON DIOXIDE 30.9 mmol/L (21.0-32.0); CREATININE - SERUM 1.1 mg/dL (0.6-1.3); MAGNESIUM - SERUM 2.1 mg/dL (1.8-2.4); POTASSIUM - SERUM 4.5 mmol/L (3.5-5.1)
[2019-07-16 07:53] VITALS: BP 120/68
--- NOTE | 2019-07-16 08:00 | NUR ---
ASSESSMENT PER FLOW SHEET. PT IS WITHOUT DISTRESS.COMPLAINS OF PAIN IN LEFT GROIN/LEG. MORTGAGE CONSULTANT USE INSTRUCTED.CALL LIGHT IN REACH
[2019-07-16 12:16] VITALS: BP 123/57
[2019-07-16 17:04] VITALS: BP 126/61
--- NOTE | 2019-07-16 19:19 | NUR ---
HAS BEEN SLEEPING FOR 25-30 MINUTES NOW PER . HE IS WITHOUT DISTRESS AT PRESENT.WITHOUT CHANGE.CONT PLAN OF CARE
[2019-07-16 19:30] VITALS: BP 133/62
[2019-07-17] VITALS (7 sets, daily range): BP systolic 112–147; BP diastolic 60–90
--- NOTE | 2019-07-17 01:54 | NUR ---
REsting in bed IV in tact and paten with ns and BOTTOM CAGER in place for pain control. Alert and orented able to voice needs and wants to staff. at bedside. Resprations are evevn and unlabored call light in reach.No needs at this time.
[2019-07-17 05:48] LABS: BASOPHILS 0.3 % (0-2); EOSINOPHILS 5.8 % (0-7); HEMOGLOBIN 12.9 g/dL (13.5-17.5); LYMPHOCYTES 18.7 % (15-50); MCH 30.6 pg (26.0-34.0); MCHC 33.1 g/dL (31.0-37.0); MCV 92.4 fL (80.0-100.0); MEAN PLATELET VOLUME 9.7 fL (7.4-10.4); NEUTROPHILS 63.2 % (40-80); PLATELET COUNT 269 10x3/uL (130-400); RBC 4.22 10x6/uL (4.20-6.10); RDW 12.3 % (11.5-14.5); WBC 6.9 10x3/uL (4.8-10.8)
[2019-07-17 06:40] LABS: ANION GAP 8.4 mmol/L (8-16); CALCIUM 8.5 mg/dL (8.5-10.1); CREATININE - SERUM 1.1 mg/dL (0.6-1.3); MAGNESIUM - SERUM 2.1 mg/dL (1.8-2.4); POTASSIUM - SERUM 4.4 mmol/L (3.5-5.1)
--- NOTE | 2019-07-17 11:43 | NUR ---
PATIENT RECIEVED THIS AM RESTING IN BED WITH CL IN REACH. EDEMA NOTED TO LEFT LOWER EXTREMITY WITH MILD REDNESS ALSO. PATIENT REPORTS PAIN RELIEVED WITH ULTRAM AND BANK REPRESENTATIVE DILAUDID.
--- NOTE | 2019-07-17 20:15 | NUR ---
SUPINE IN BED, A&O X 4. AT BEDSIDE. REPORTS 8/10 PAIN TO LLE. SKIN IS RED AND SWOLLEN. WILL CONTINUE TO MONITOR.
[2019-07-18] VITALS (12 sets, daily range): BP systolic 105–151; BP diastolic 70–93; Ht 182.9 cm; Wt 110.6 kg
[2019-07-18 05:12] LABS: BASOPHILS 0.4 % (0-2); EOSINOPHILS 5.1 % (0-7); HEMOGLOBIN 12.8 g/dL (13.5-17.5); LYMPHOCYTES 15.8 % (15-50); MCH 30.8 pg (26.0-34.0); MCHC 33.7 g/dL (31.0-37.0); MCV 91.6 fL (80.0-100.0); MEAN PLATELET VOLUME 9.5 fL (7.4-10.4); MONOCYTES 10.5 % (2-11); NEUTROPHILS 67.2 % (40-80); PLATELET COUNT 289 10x3/uL (130-400); RBC 4.15 10x6/uL (4.20-6.10); RDW 12.3 % (11.5-14.5); WBC 6.9 10x3/uL (4.8-10.8)
[2019-07-18 05:33] LABS: ANION GAP 11.2 mmol/L (8-16); CALCIUM 8.6 mg/dL (8.5-10.1); CARBON DIOXIDE 28.8 mmol/L (21.0-32.0); CREATININE - SERUM 1.1 mg/dL (0.6-1.3)
--- NOTE | 2019-07-18 07:52 | NUR ---
PATIENT RESTING WITH EYES CLOSED. NO DISTRESS. AT SIDE, CL IN REACH
--- NOTE | 2019-07-18 10:11 | MORECARE ---
CASE MANAGEMENT DISCHARGE SUMMARY PATIENT: ADRIANA MASON UNIT: [id number] ADM DATE: 07/12/19 AGE: 64 : [birth year] SEX: M ROOM/BED: D.2216 AUTHOR: ZAINAB,DOC PHYSICIAN: REFERRING PHYSICIAN: JARRET CHAVARRIA MD DATE OF SERVICE: 07/18/19 Discharge Plan Patient Name: ADRIANA MASON Facility: [facility]:[place] : 1955 Planned Disposition: Home or Self Care Anticipated Discharge Date: Discharge Date: Expected LOS: Initial Reviewer: [email or web address] Initial Review Date: 07/12/2019 Generated: 07/18/19 11:10 am Comments DCP- Discharge Planning Updated by [email or web address]: Pearl Mcnamara on 07/18/19 9:[address] Patient Name: ADRIANA MASON Admission Status: Elective Accout number: [id number] Admission Date: 07-12-2019 : 1955 Admission Diagnosis: Attending: YONIS Current LOS: 6 Anticipated DC Date: Planned Disposition: Home or Self Care Primary Insurance: BLUE CROSS TRUE BLUE PPO Discharge Planning Comments: CM met with patient to complete initial dc planning assessment. CM educated patient on the CM role and verbal consent given by patient to complete assessment. Patient lives at home with his where he is independent with his care. At discharge patient plans to return home and feels this is a safe discharge. CM discussed availability of home health, rehab services, and medical equipment. Patient denied known discharge needs at this time. 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 CM will continue to follow and will assist as needed with dc plans/needs. Subway Repair Supervisor: Pearl Mcnamara DCPIA - Discharge Planning Initial Assessment Updated by [email or web address]: Pearl Mcnamara on 07/18/19 10:08 am * Is the patient Alert and Oriented? Yes * PCP YOHANA * Pharmacy [address] * Preadmission Environment Home with Family * ADLs Independent * Equipment None * List name and contact numbers for known caregivers / representatives who currently or will assist patient after discharge: FABIANA MASON () [phone] * Verbal permission to speak to the caregivers and representatives has been obtained from the patient. N/A * Community resources currently utilized None * Additional services required to return to the preadmission environment? No * Can the patient safely return to the preadmission environment? Yes * Has this patient been hospitalized within the prior 30 days at any hospital? No Patient Name: ADRIANA MASON Page [phone] at 1011 All edits/amendments must be made on the electronic document DICTATION DATE: 07/18/19 1010 POULTRY RAISER: PO 07/18/19 1010 RPT#: [id number] DC DATE: STATUS: ADM IN [facility] [address] [place] [address] END OF REPORT
[2019-07-18 13:22] LABS: APPEARANCE CLEAR (CLEAR); BACTERIA FEW /hpf (NEGATIVE); BILIRUBIN NEGATIVE (NEGATIVE); COLOR YELLOW (YELLOW); EPITHELIAL CELLS 0-5 /hpf (0-5); GLUCOSE NEGATIVE (NEGATIVE); KETONE NEGATIVE (NEGATIVE); MUCUS <1+ /lpf (NONE SEEN); NITRITE NEGATIVE (NEGATIVE); PROTEIN NEGATIVE (NEGATIVE); RED CELLS - URINE 0-5 /hpf (0-5); SPECIFIC GRAVITY 1.015 (1.005-1.020); UROBILINOGEN NORMAL (NORMAL); WHITE CELLS - URINE 0-5 /hpf (NEGATIVE)
--- NOTE | 2019-07-18 14:50 | NUR ---
PT RECEIVED FROM IR AT THIS TIME. L LEG SWOLLEN, PEDAL PULSES FOUND VIA DOPPLER. GIVEN PRN DILAUDID AND TRAMADOL PER REQUEST. FAMILY AT BEDSIDE DENIES NEEDS
--- NOTE | 2019-07-18 19:00 | NUR ---
Report received from off going nurse. Initial assessment completed, see flowsheet for details. Pt denies further needs at this time. No s/s of distress. Will continue to monitor.
--- NOTE | 2019-07-18 21:00 | NUR ---
Pt is laying in bed with eyes closed at this time. Pt denies needs at this time. No s/s of distress noted. Will continue to monitor.
[2019-07-18 21:25] LABS: HEMATOCRIT 39.7 % (42.0-54.0); HEMOGLOBIN 13.4 g/dL (13.5-17.5)
[2019-07-18 21:31] LABS: INR 1.22 (0.85-1.17); PROTIME 15.3 SECONDS (11.6-15.0)
--- NOTE | 2019-07-18 23:00 | NUR ---
Reassessment completed, see flowsheet for details. Pt denies needs at this time. No s/s of distress noted. Will continue to monitor.
[2019-07-19] VITALS (10 sets, daily range): BP systolic 128–144; BP diastolic 76–88
--- NOTE | 2019-07-19 01:00 | NUR ---
Pt is laying in bed with eyes open at this time. Pt c/o pain at this time 01/11. Bolus HUMAN ANATOMY TEACHER dose given per order. No further needs noted. No s/s of distress. Will continue to monitor.
--- NOTE | 2019-07-19 03:00 | NUR ---
Reassessment completed, see flowsheet for details. Pt is laying in bed with eyes closed at this time. No needs voiced. No s/s of distress noted. Will continue to monitor.
[2019-07-19 03:03] LABS: BASOPHILS 0.3 % (0-2); EOSINOPHILS 6.6 % (0-7); HEMATOCRIT 38.9 % (42.0-54.0); IMMATURE GRANULOCYTES 1.4 % (0-5); LYMPHOCYTES 16.6 % (15-50); MCH 30.9 pg (26.0-34.0); MCHC 33.4 g/dL (31.0-37.0); MCV 92.4 fL (80.0-100.0); MEAN PLATELET VOLUME 9.6 fL (7.4-10.4); MONOCYTES 9.7 % (2-11); NEUTROPHILS 65.4 % (40-80); PLATELET COUNT 336 10x3/uL (130-400); RBC 4.21 10x6/uL (4.20-6.10); RDW 12.3 % (11.5-14.5); WBC 6.9 10x3/uL (4.8-10.8)
[2019-07-19 03:05] LABS: ANION GAP 9.7 mmol/L (8-16); CALCIUM 8.5 mg/dL (8.5-10.1); CARBON DIOXIDE 30.8 mmol/L (21.0-32.0); CREATININE - SERUM 1.1 mg/dL (0.6-1.3); POTASSIUM - SERUM 4.5 mmol/L (3.5-5.1)
[2019-07-19 03:07] LABS: APTT 35.8 SECONDS (22.8-39.4); INR 1.19 (0.85-1.17)
[2019-07-19 04:07] LABS: FACTOR II DNA ANALYSIS Negative (())
--- NOTE | 2019-07-19 05:00 | NUR ---
Pt is laying in bed with eyes closed. No needs voiced/noted. No s/s of distress. Will continue to monitor.
--- NOTE | 2019-07-19 07:00 | NUR ---
REPORT RECEIVED. ASSESSMENT COMPLETE PER FLOW SHEET. VSS. NO NEW CHANGES.
--- NOTE | 2019-07-19 08:10 | NUR ---
RADIOLOGY AT BEDSIDE GIVEN UDPATE
[2019-07-19 08:33] LABS: HEMATOCRIT 39.5 % (42.0-54.0); HEMOGLOBIN 13.2 g/dL (13.5-17.5)
[2019-07-19 08:37] LABS: APTT 36.3 SECONDS (22.8-39.4); INR 1.22 (0.85-1.17); PROTIME 15.3 SECONDS (11.6-15.0)
--- NOTE | 2019-07-19 08:59 | NUR ---
Nutrition follow-up: Pt NPO for venogram today Labs reviewed Wt: 238# PO intake has been 50-75% average of meals RDN following.
--- NOTE | 2019-07-19 09:50 | NUR ---
PT C/O OF PAIN RADIATING FROM L LEG PRN ULTRAM ADM
--- NOTE | 2019-07-19 11:20 | NUR ---
PT SLEEPING COMFORTABLY VSS NO NEW CHANGES WILL CONTINUE TO MONITOR
--- NOTE | 2019-07-19 13:00 | NUR ---
DR MIJARES CALLED GIVEN UDPATE. T ORDER 1MG DILAUDID X1 NOW. ADM.
[2019-07-19 14:42] LABS: INR 1.22 (0.85-1.17); PROTIME 15.3 SECONDS (11.6-15.0)
--- NOTE | 2019-07-19 15:00 | NUR ---
REASSESSMENT COMPLETEP ER FLOW SHEET. VSS. NO NEW CHANGES WILL CONTINUE CAMILLE ONITOR
--- NOTE | 2019-07-19 15:20 | NUR ---
PT TO IR AT THIS TIME
[2019-07-19 20:17] LABS: HEMATOCRIT 41.6 % (42.0-54.0); HEMOGLOBIN 13.8 g/dL (13.5-17.5)
[2019-07-19 20:24] LABS: INR 1.28 (0.85-1.17); PROTIME 15.9 SECONDS (11.6-15.0)
[2019-07-19 20:25] LABS: APTT 38.4 SECONDS (22.8-39.4)
[2019-07-20] VITALS (23 sets, daily range): BP systolic 120–152; BP diastolic 67–93
[2019-07-20 04:21] LABS: BASOPHILS 0.3 % (0-2); EOSINOPHILS 1.9 % (0-7); HEMATOCRIT 38.5 % (42.0-54.0); HEMOGLOBIN 12.8 g/dL (13.5-17.5); IMMATURE GRANULOCYTES 1.8 % (0-5); LYMPHOCYTES 10.6 % (15-50); MCH 30.5 pg (26.0-34.0); MCHC 33.2 g/dL (31.0-37.0); MCV 91.9 fL (80.0-100.0); MEAN PLATELET VOLUME 9.5 fL (7.4-10.4); MONOCYTES 11.2 % (2-11); NEUTROPHILS 74.2 % (40-80); PLATELET COUNT 290 10x3/uL (130-400); RBC 4.19 10x6/uL (4.20-6.10); RDW 12.3 % (11.5-14.5)
[2019-07-20 04:25] LABS: WBC 9.7 10x3/uL (4.8-10.8)
[2019-07-20 04:32] LABS: CALC OSMOLALITY 278 mosm/kg (275-300); CALCIUM 8.3 mg/dL (8.5-10.1); CARBON DIOXIDE 29.1 mmol/L (21.0-32.0); CHLORIDE - SERUM 105 mmol/L (98-107); GLUCOSE 97 mg/dL (74-106); POTASSIUM - SERUM 4.3 mmol/L (3.5-5.1); SODIUM 139 mmol/L (136-145); UREA NITROGEN 16 mg/dL (7-18); eGFR NON AFRICAN AMERICAN 79 mL/min (90-120)
--- NOTE | 2019-07-20 07:00 | NUR ---
REPORT RECEIVED. ASSESSMENT COMPLETE PER FLOW SHEET. VSS. PT RESTING COMFORTABLY DENIES NEEDS WILL CONTINUE TO MONITOR
--- NOTE | 2019-07-20 11:10 | NUR ---
REASSESSMENT COMPLETE PER FLOW SHEET. VSS. NO NEW CHANGES WILL CONTINUE TO MONITOR
--- NOTE | 2019-07-20 13:00 | NUR ---
PT RESTING COMFORTABLY VSS. NO NEW CHANGES WILL CONTINUE TO MONITOR
--- NOTE | 2019-07-20 15:00 | NUR ---
REASSESSMENT COMPLETE PER FLOW SHEET. VSS. NO NEW CHANGES WILL CONTINUE TO MONITOR
[2019-07-21] VITALS (20 sets, daily range): BP systolic 106–142; BP diastolic 61–89
[2019-07-21 05:06] LABS: HEMATOCRIT 38.3 % (42.0-54.0); HEMOGLOBIN 12.5 g/dL (13.5-17.5); MCH 30.5 pg (26.0-34.0); MCHC 32.6 g/dL (31.0-37.0); MCV 93.4 fL (80.0-100.0); MEAN PLATELET VOLUME 10.3 fL (7.4-10.4); PLATELET COUNT 290 10x3/uL (130-400); RDW 12.3 % (11.5-14.5); WBC 8.1 10x3/uL (4.8-10.8)
[2019-07-21 05:13] LABS: ANION GAP 9.8 mmol/L (8-16); CALCIUM 8.2 mg/dL (8.5-10.1); CARBON DIOXIDE 30.8 mmol/L (21.0-32.0); CREATININE - SERUM 1.2 mg/dL (0.6-1.3); POTASSIUM - SERUM 4.6 mmol/L (3.5-5.1)
--- NOTE | 2019-07-21 07:00 | NUR ---
PT RESTING IN BED, VSS AND WNL. BED ALARM ON. NO SIGNS OF DISTRESS NOTED. PT ANSWERS ALL QUESTIONS. WILL CONT TO FOLLOW POC
--- NOTE | 2019-07-21 09:00 | NUR ---
PT RESTING IN BED, FAMILY AT BEDSIDE. BED ALARM ON. PT ANSWERS ALL QUESTIONS. NO SIGNS OF DISTRESS NOTED AT THIS TIME, WILL CONT TO FOLLOW POC
--- NOTE | 2019-07-21 09:21 | NUR ---
Nutrition follow-up: RDN ordered clear liquid diet with Ensure clear Labs reviewed Pt reports he is hungry s/p venogram RDN following.
[2019-07-21 09:59] LABS: BASOPHILS 1 % (0-2); EOSINOPHILS 4 % (0-7); LYMPHOCYTES 15 % (15-50); MONOCYTES 15 % (2-11); NEUTROPHILS 62 % (40-80); PLATELET ESTIMATE NORMAL
--- NOTE | 2019-07-21 11:00 | NUR ---
HERE AND ORDERED PHYSICAL THERAPY EVAL TO GET PT OOB AND WALK AND PUT PT ON A REGULAR DIET. VSS AND WNL. CALL LIGHT WITHIN REACH, NO SIGNS OF DISTRESS NOTED. WILL CONT TO FOLLOW POC
--- NOTE | 2019-07-21 13:00 | NUR ---
PHYSICAL THERAPY STATES PT IS OK TO TRANSFER WITH NURSING WITH A WALKER. VSS AND WNL. DENIES ANY NEEDS AT THIS TIME, BED ALARM ON. FAMILY AT BEDSIDE, WILL CONT TO FOLLOW POC
--- NOTE | 2019-07-21 15:00 | NUR ---
PT RESTING IN BED, VSS AND WNL, BED ALARM ON. NO SIGNS OF DISTRESS NOTED AT THIS TIME, PT IS TOLERATING RA. CALL LIGHT WITHIN REACH. WILL CONT TO FOLLOW POC
--- NOTE | 2019-07-21 16:48 | NUR ---
PROVIDED PT WITH DINNER TRAY, VSS AND WNL, BED ALARM ON. NO SIGNS OF DISTRESS NOTED AT THIS TIME, WILL CONT TO FOLLOW POC
--- NOTE | 2019-07-21 17:00 | NUR ---
PT RESTING IN BED, VSS AND WNL, TRAY PROVIDED TO PT. DENIES ANY NEEDS AT THIS TIME, WILL CONT TO FOLLOW POC
--- NOTE | 2019-07-21 19:00 | NUR ---
ASSESSMENT COMPLETED. DENIES ANY NEEDS. C/O PAIN TO LEFT LEG, TRAMADOL GIVEN PER ORDERS
--- NOTE | 2019-07-21 21:00 | NUR ---
TOLERATED MEDICATION WITHOUT DIFFICULTY. DENIES ANY NEEDS. CALL LIGHT IN REACH
[2019-07-22] VITALS (9 sets, daily range): BP systolic 92–139; BP diastolic 60–78
--- NOTE | 2019-07-22 00:36 | NUR ---
EYES CLOSED, EASILY WAKES. DENIES ANY NEEDS
--- NOTE | 2019-07-22 01:00 | NUR ---
EYES CLOSED, EASILY WAKES. DENIES ANY NEEDS. CALL LIGHT IN REACH
--- NOTE | 2019-07-22 03:00 | NUR ---
PATIENT PUT CALL LIGHT ON, WHEN ANSWERED CALL LIGHT, PATIENT SAID HE WENT TO THE [facility] ON HIS OWN. EDUCATED ON IMPORTANCE OF ASKING FOR ASSISTANCE. PT VERBALIZED UNDERSTANDING
[2019-07-22 04:42] LABS: BASOPHILS 0.7 % (0-2); EOSINOPHILS 6.7 % (0-7); HEMATOCRIT 38.7 % (42.0-54.0); HEMOGLOBIN 12.9 g/dL (13.5-17.5); IMMATURE GRANULOCYTES 4.4 % (0-5); LYMPHOCYTES 14.5 % (15-50); MCH 31.2 pg (26.0-34.0); MCHC 33.3 g/dL (31.0-37.0); MCV 93.7 fL (80.0-100.0); MONOCYTES 13.6 % (2-11); NEUTROPHILS 60.1 % (40-80); PLATELET COUNT 310 10x3/uL (130-400); RBC 4.13 10x6/uL (4.20-6.10); RDW 12.4 % (11.5-14.5); WBC 7.6 10x3/uL (4.8-10.8)
--- NOTE | 2019-07-22 05:00 | NUR ---
EYES CLOSED, EASILY WAKES. DENIES ANY NEEDS
[2019-07-22 05:02] LABS: ANION GAP 10.7 mmol/L (8-16); CALCIUM 8.6 mg/dL (8.5-10.1); CARBON DIOXIDE 29.7 mmol/L (21.0-32.0); CREATININE - SERUM 1.1 mg/dL (0.6-1.3); MAGNESIUM - SERUM 2.2 mg/dL (1.8-2.4); PHOSPHOROUS 3.5 mg/dL (2.5-4.9); POTASSIUM - SERUM 4.4 mmol/L (3.5-5.1)
--- NOTE | 2019-07-22 14:59 | NUR ---
0800 REPORT RECIEVED AND CARE ASSUMED OF PATIENT.. PT IS AWAKE AND ALERT WITH AT THE BEDSIDE...NOTED SWELLING IN LEFT LEG SAND PT STATES THAT IT IS ALOT BETTER.. PEDAL PULKSES ANRE PALPABLE AT THIS TIME .. FAINTLY... 0900 BREAKFAST SERVED AND PT FEEDING SELF.. REMAINS WITH PT.. 0930 PHYSICAL THERAPY AMBULATING PT IN THE UNIT.. 1000 ASSISTED PT WITH CHG BATH.. CLEAN LINENS AND GOWN ON PT TOLERATED WELL 1200 LUNCH SERVED AND PT IS FEEDING SELF.. 1400 CONTINUES TO WAIT ON ROOM RESTING WITHOUT C/O AT THIS TIME..
--- NOTE | 2019-07-22 17:36 | NUR ---
1500 WAITING ON ROOM ON THE FLOOR.. 1630 REPORT CALLED TO [facility] ROOM 2216 OBTAINED.. 1730 PT TRANSPORTED TO FLOOR VIA WHEEL CHAIR..
--- NOTE | 2019-07-22 19:45 | NUR ---
PATIENT ALERT AND ORIENTED. HAS RIGHT WRIST IV THAT IS RUNNING AT A KVO RATE WITH DILAUDID PRODUCE DEPARTMENT MANAGER AT 0.2/10/NO LOCK OUT. PATIENT STATES PAIN IS TOLERABLE AT THIS TIME AND USES PRODUCE DEPARTMENT MANAGER EFFECTIVELY. SPOKE WITH PATIENT ABOUT PLAN OF CARE. PATIENT VERBALIZES UNDERSTANNDING. DENIES FURTHER NEEDS AT THIS TIME. CALL LIGHT IN REACH. CPOC.
[2019-07-23 06:47] LABS: BASOPHILS 0.6 % (0-2); HEMATOCRIT 38.5 % (42.0-54.0); HEMOGLOBIN 12.5 g/dL (13.5-17.5); LYMPHOCYTES 21.6 % (15-50); MCH 30.4 pg (26.0-34.0); MCHC 32.5 g/dL (31.0-37.0); MCV 93.7 fL (80.0-100.0); MONOCYTES 9.7 % (2-11); NEUTROPHILS 58.1 % (40-80); RBC 4.11 10x6/uL (4.20-6.10); RDW 12.3 % (11.5-14.5); WBC 6.4 10x3/uL (4.8-10.8)
[2019-07-23 06:52] LABS: PLATELET COUNT 392 10x3/uL (130-400)
[2019-07-23 06:58] LABS: ANION GAP 10.7 mmol/L (8-16); CALCIUM 8.4 mg/dL (8.5-10.1); CARBON DIOXIDE 31.2 mmol/L (21.0-32.0); CREATININE - SERUM 1.1 mg/dL (0.6-1.3); POTASSIUM - SERUM 3.9 mmol/L (3.5-5.1)
--- NOTE | 2019-07-23 09:00 | NUR ---
PATIENT IN BED WITH IV INTACT. NO COMPLAINTS OR SIGNS OF DISTRESS. FAMILY AT BEDSIDE. CALL LIGHT WITHIN REACH.
[2019-07-23 09:21] VITALS: BP 107/53
--- NOTE | 2019-07-23 12:00 | NUR ---
CALLED HS FOR TEDS.
[2019-07-23 12:11] VITALS: BP 101/49
--- NOTE | 2019-07-23 14:30 | NUR ---
PATIENT UP TO AMBULATE WITH PT.
[2019-07-23 16:42] VITALS: BP 127/73
--- NOTE | 2019-07-23 18:00 | NUR ---
TEDS PLACED ON PATIENT ORDERED AT THIS TIME. IV INTACT. NO COMPLAINTS. CALL LIGHT WITHIN REACH.
--- NOTE | 2019-07-23 19:00 | NUR ---
PATIENT ALERT AND ORIENTED WALKING AROUND ROOM. WEARING TELE MONITOR AND ON ROOM AIR. DENIES PAIN AT THIS TIME. HAS RIGHT WRIST IV THAT IS INFUSING AT A KVO RATE WITH DILAUDID SYSTEMS ADMINISTRATION ANALYST 0.2AND NO LOCK OUT. PATIENT STATES HE WILL BE READY FOR BED SOON. PATIENT MOVING BETTER TODAY THAN PRIOR SHIFTS. DENIES FURTHER NEEDS AT THIS TIME. CALL LIGHT IN REACH. CPOC.
[2019-07-23 20:00] VITALS: BP 119/64
--- NOTE | 2019-07-23 20:50 | NUR ---
PROVIDED HS MEDICATIONS. PATIENT TOLERATED WELL. SPOKE WITH PATIENT ABOUT BLOOD THINNERS. ANSWERED QUESTIONS. PATIENT VERBALIZES UNDERSTANDING. REITERATES WHAT HE LEARNED FROM THE DOCTOR TODAY. PATIENT VERBALIZES UNDERSTANDING OF EDUCATION PROVIDED. DENIES FURTHER NEEDS. CALL LIGHT IN REACH. CPOC.
[2019-07-24 04:00] VITALS: BP 132/78
--- NOTE | 2019-07-24 07:15 | NUR ---
REC'D IN AWAKE AND ALERT WITH NO DISTRESS NOTED. RESP EVEN AND UNLABORED. CAN CAN EXPRESS NEEDS AND WANTS WITH NONE NOTED OR VOICED. ASSESSMENT COMPLETED. C/L IN REACH AT BEDSIDE.
[2019-07-24 08:16] VITALS: BP 115/71
--- NOTE | 2019-07-24 09:15 | NUR ---
HIGH RISK / IMPAIRED SKIN INTEGRITY -TURN/REPOSITION Q 2 HOURS (HOURLY REPOSITIONING IF UP IN CHAIR -FLOAT HEELS OFF MATTRESS/PILLOWS -DAILY AND NEEDED PERSONAL CARE, USING CALMOSEPTINE CREAM IF REDNESS IS NOTED DUE TO INCONTINENCE/MOISTURE -SKIN ASSESSMENT Q SHIFT -CONSULT WOUND CARE IF NON-BLANCHABLE REDNESS OVER BONY PROMINENCES IS NOTED
[2019-07-24 10:06] LABS: ALBUMIN 2.8 g/dL (3.4-5.0); ALKALINE PHOSPHATASE 75 U/L (46-116); ALT (SGPT) 51 U/L (10-68); BILIRUBIN - TOTAL 0.48 mg/dL (0.2-1.3); CALC OSMOLALITY 282 mosm/kg (275-300); CALCIUM 8.2 mg/dL (8.5-10.1); CARBON DIOXIDE 24.1 mmol/L (21.0-32.0); CHLORIDE - SERUM 106 mmol/L (98-107); GLUCOSE 96 mg/dL (74-106); PROTEIN - SERUM 6.1 g/dL (6.4-8.2); SODIUM 142 mmol/L (136-145); UREA NITROGEN 12 mg/dL (7-18); eGFR NON AFRICAN AMERICAN 79 mL/min (90-120)
[2019-07-24 10:08] LABS: POTASSIUM - SERUM 4.7 mmol/L (3.5-5.1)
[2019-07-24 11:18] LABS: HEMATOCRIT 41.9 % (42.0-54.0); HEMOGLOBIN 13.9 g/dL (13.5-17.5); LYMPHOCYTES 20.9 % (15-50); MCH 30.7 pg (26.0-34.0); MCHC 33.2 g/dL (31.0-37.0); MCV 92.5 fL (80.0-100.0); MEAN PLATELET VOLUME 9.5 fL (7.4-10.4); NEUTROPHILS 62.7 % (40-80); PLATELET COUNT 394 10x3/uL (130-400); RBC 4.53 10x6/uL (4.20-6.10); RDW 12.2 % (11.5-14.5); WBC 6.7 10x3/uL (4.8-10.8)
[2019-07-24 12:15] VITALS: BP 141/75
--- NOTE | 2019-07-24 13:26 | NUR ---
Nutrition follow-up: Diet: Regular PO intake ~75% average of meals Labs reviewed Wt: 243# +BM PO intake is good at this time RDN following.
--- NOTE | 2019-07-24 18:35 | NUR ---
I have reviewed this patient and I concur with the Shift Assessment completed by the Licensed Practical Nurse today this shift.
--- NOTE | 2019-07-24 20:00 | NUR ---
PT SITTING UP IN BED WITHOUT DISTRESS, AOX4. IV RIGHT WRIST INFUSING NS @ KVO WITH DILAUDID ADJUNCT COMMUNICATIONS FACULTY MEMBER IN USE. ROOM AIR. NO SOB, NO COUGH. LUNGS CTA. NO PAIN AT THIS TIME. REPORTS HE HAS BEEN HAVING SOME HEMATURIA. PT GETTING UP TO AMBULATE IN HALLWAYS AT THIS TIME. ENCOURAGED TO CALL WITH NEEDS. WILL CTM
[2019-07-24 20:06] LABS: APPEARANCE CLEAR (CLEAR); COLOR YELLOW (YELLOW); GLUCOSE NEGATIVE (NEGATIVE); NITRITE NEGATIVE (NEGATIVE); PROTEIN NEGATIVE (NEGATIVE); SPECIFIC GRAVITY 1.015 (1.005-1.020)
[2019-07-24 20:07] LABS: BILIRUBIN NEGATIVE (NEGATIVE); KETONE NEGATIVE (NEGATIVE); UROBILINOGEN NORMAL (NORMAL)
[2019-07-24 20:08] LABS: BACTERIA FEW /hpf (NEGATIVE); RED CELLS - URINE >50 /hpf (0-5); WHITE CELLS - URINE 0-5 /hpf (NEGATIVE)
[2019-07-24 21:03] VITALS: BP 130/62
[2019-07-25 00:56] VITALS: BP 134/71
[2019-07-25 05:46] VITALS: BP 101/68
[2019-07-25 05:58] LABS: BASOPHILS 0.8 % (0-2); EOSINOPHILS 5.4 % (0-7); HEMATOCRIT 38.8 % (42.0-54.0); HEMOGLOBIN 12.7 g/dL (13.5-17.5); IMMATURE GRANULOCYTES 2.8 % (0-5); LYMPHOCYTES 18.4 % (15-50); MCH 30.5 pg (26.0-34.0); MCHC 32.7 g/dL (31.0-37.0); MCV 93.3 fL (80.0-100.0); MEAN PLATELET VOLUME 9.7 fL (7.4-10.4); NEUTROPHILS 62.6 % (40-80); PLATELET COUNT 418 10x3/uL (130-400); RBC 4.16 10x6/uL (4.20-6.10); RDW 12.6 % (11.5-14.5); WBC 6.5 10x3/uL (4.8-10.8)
[2019-07-25 06:21] LABS: ALBUMIN 2.8 g/dL (3.4-5.0); ANION GAP 10.1 mmol/L (8-16); BILIRUBIN - TOTAL 0.3 mg/dL (0.2-1.3); CALCIUM 8.5 mg/dL (8.5-10.1); CARBON DIOXIDE 30.1 mmol/L (21.0-32.0); CREATININE - SERUM 1.1 mg/dL (0.6-1.3); POTASSIUM - SERUM 4.2 mmol/L (3.5-5.1); PROTEIN - SERUM 5.8 g/dL (6.4-8.2)
[2019-07-25 08:30] VITALS: BP 121/68
--- NOTE | 2019-07-25 08:36 | NUR ---
PATIENT IV IN RIGHT HAND HAS A LEAK ON THE J LOOP. RFA PATENT AND FLUSHES FINE. LAYING IN BED ON BACK. THEATRICAL AGENT IN ROOM. CL IN REACH. NO CO PAIN. WCTM
[2019-07-25] MEDS ORDERED: GABAPENTIN100 MG PO (12:31)
[2019-07-25] MEDS ORDERED: MUCINEX600 MG PO (12:31)
[2019-07-25] MEDS ORDERED: TESSALON PERLE100 MG PO (12:31)
[2019-07-25] MEDS ORDERED: ELIQUIS5 MG PO (12:31)
[2019-07-25] MEDS ORDERED: PROTONIX40 MG PO (12:32)
--- NOTE | 2019-07-25 13:54 | MORECARE ---
CASE MANAGEMENT DISCHARGE SUMMARY PATIENT: ADRIANA MASON UNIT: [id number] ADM DATE: 07/12/19 AGE: 64 : 51 SEX: M ROOM/BED: D.2216 AUTHOR: ZAINABDOC PHYSICIAN: REFERRING PHYSICIAN: JARRET CHAVARRIA MD DATE OF SERVICE: 07/25/19 Discharge Plan Patient Name: ADRIANA MASON Facility: [facility]:[place] : 1955 Planned Disposition: Home or Self Care Anticipated Discharge Date: Discharge Date: Expected LOS: Initial Reviewer: [email or web address] Initial Review Date: 07/12/2019 Generated: 07/25/19 2:53 pm Comments DCP- Discharge Planning Updated by [id number]: Pearl Mcnamara on 07/25/19 12:[address] Patient Name: ADRIANA MASON Encounter No: [id number] : 1955 Primary Insurance: BLUE CROSS TRUE BLUE PPO Anticipated DC Date: Planned Disposition: Home or Self Care External Planned Provider: : DCP follow-up note: Patient and family in agreement with discharge plan. No changes to plan. Case management will follow and assist as needed. Pearl Mcnamara DCP- Discharge Planning Updated by [id number]: Pearl Mcnamara on 07/18/19 9:[address] Patient Name: ADRIANA MASON Admission Status: Elective Accout number: [id number] Admission Date: 07-12-2019 : 1955 Admission Diagnosis: Attending: YONIS Current LOS: 6 Anticipated DC Date: Planned Disposition: Home or Self Care Primary Insurance: BLUE [employer] TRUE BLUE PPO Discharge Planning Comments: CM met with patient to complete initial dc planning assessment. CM educated patient on the CM role and verbal consent given by patient to complete assessment. Patient lives at home with his where he is independent with his care. At discharge patient plans to return home and feels this is a safe discharge. CM discussed availability of home health, rehab services, and medical equipment. Patient denied known discharge needs at this time. His will be his sales route driver helper home at DC. CM will continue to follow and will assist as needed with dc plans/needs. Fourchette Sewer: Pearl Mcnamara DCPIA - Discharge Planning Initial Assessment Updated by [email or web address]: Pearl Mcnamara on 07/18/19 10:08 am * Is the patient Alert and Oriented? Yes * PCP YOHANA * Pharmacy [address] * Preadmission Environment Home with Family * ADLs Independent * Equipment None * List name and contact numbers for known caregivers / representatives who currently or will assist patient after discharge: FABIANA MASON () [phone] * Verbal permission to speak to the caregivers and representatives has been obtained from the patient. N/A * Community resources currently utilized None * Additional services required to return to the preadmission environment? No * Can the patient safely return to the preadmission environment? Yes * Has this patient been hospitalized within the prior 30 days at any hospital? No Last DP export: 07/18/19 9:11 a Patient Name: ADRIANA MASON Page 00706 at 1354 All edits/amendments must be made on the electronic document DICTATION DATE: 07/25/19 1353 HIRED HELP: PO 07/25/19 1353 RPT#: [id number] DC DATE: STATUS: ADM IN [facility] [address] [place] [address] END OF REPORT
[2019-07-25 15:06] VITALS: BP 146/72
--- NOTE | 2019-07-25 19:31 | NUR ---
DE ALCHOLIZER REMOVED. WASTED 31 ML OF DILAUDED WITH Starla URENA RN.
== END 2019-07-25 15:23 | disposition home or self-care (01) | DRG 270 ==
LOC: D.ER 13:10 → D.MS 16:15 → D.ICU 16:15 → D.SDCHOLD 07-13 15:02 → D.MS 07-13 15:02 → D.ICU 07-18 14:05 → D.MS 07-22 17:38
PROVIDERS: Family Medicine; Internal Medicine Hematology & Oncology; Radiology Diagnostic Radiology; Specialist; ADMIT Family Medicine; ATTEND Family Medicine
PROC: 04CN3ZZ Extirpation of Matter from Left Popliteal Artery, Percutaneous Approach (ICD-10-PCS; 2019-07-14)
PROC: 3E03317 Introduction of Other Thrombolytic into Peripheral Vein, Percutaneous Approach (ICD-10-PCS; 2019-07-14)
PROC: 06CN3ZZ Extirpation of Matter from Left Femoral Vein, Percutaneous Approach (ICD-10-PCS; principal; 2019-07-14 14:00)
PROC: B50C1ZZ Plain Radiography of Left Lower Extremity Veins using Low Osmolar Contrast (ICD-10-PCS; 2019-07-18)
PROC: 06CY3ZZ Extirpation of Matter from Lower Vein, Percutaneous Approach (ICD-10-PCS; 2019-07-19)
PROC: 3E03317 Introduction of Other Thrombolytic into Peripheral Vein, Percutaneous Approach (ICD-10-PCS; 2019-07-19)
DX: I82.412 Acute embolism and thrombosis of left femoral vein (principal); I26.99 Other pulmonary embolism without acute cor pulmonale; J96.01 Acute respiratory failure with hypoxia; N17.9 Acute kidney failure, unspecified; E72.12 Methylenetetrahydrofolate reductase deficiency; I82.432 Acute embolism and thrombosis of left popliteal vein; I82.442 Acute embolism and thrombosis of left tibial vein; I25.10 Atherosclerotic heart disease of native coronary artery without angina pectoris; I25.2 Old myocardial infarction; Z85.828 Personal history of other malignant neoplasm of skin; M54.9 Dorsalgia, unspecified; E78.5 Hyperlipidemia, unspecified; I10 Essential (primary) hypertension; I48.0 Paroxysmal atrial fibrillation; D64.9 Anemia, unspecified; G35 Multiple sclerosis; G89.29 Other chronic pain; N20.0 Calculus of kidney

== ENCOUNTER → 2019-08-23 18:19 | Outpatient (CLI) | payer BC ==
[2019-07-18 14:51] VITALS: BMI 33.2
[~2019-08-23 18:19] MED LIST changes: +ELIQUIS5 MG PO; +GABAPENTIN100 MG PO; +METHOCARBAMOL750 MG PO; +MUCINEX600 MG PO; +PROTONIX40 MG PO; +TESSALON PERLE100 MG PO
== END | disposition home or self-care (01) ==
LOC: D.LABREF 18:19
PROVIDERS: ATTEND Urology
DX: N39.0 Urinary tract infection, site not specified (principal)

== ENCOUNTER → 2019-08-29 13:42 | Outpatient (CLI) | payer BC ==
[2019-07-18 14:51] VITALS: BMI 33.2
== END | disposition home or self-care (01) ==
LOC: D.RT 13:42
PROVIDERS: ATTEND Internal Medicine Pulmonary Disease
DX: I82.402 Acute embolism and thrombosis of unspecified deep veins of left lower extremity (principal); I26.99 Other pulmonary embolism without acute cor pulmonale; I10 Essential (primary) hypertension; E78.5 Hyperlipidemia, unspecified; I25.10 Atherosclerotic heart disease of native coronary artery without angina pectoris; I48.91 Unspecified atrial fibrillation

== ENCOUNTER 2019-09-05 06:43 | Inpatient (IN) | payer BC, MEDICARE ==
[2019-09-04 10:58] LABS: BASOPHILS 0.8 % (0-2); EOSINOPHILS 6.8 % (0-7); HEMATOCRIT 44.2 % (42.0-54.0); HEMOGLOBIN 14.9 g/dL (13.5-17.5); IMMATURE GRANULOCYTES 0.6 % (0-5); MCH 31.3 pg (26.0-34.0); MCHC 33.7 g/dL (31.0-37.0); MCV 92.9 fL (80.0-100.0); MEAN PLATELET VOLUME 9.6 fL (7.4-10.4); MONOCYTES 11.8 % (2-11); RBC 4.76 10x6/uL (4.20-6.10); RDW 13.4 % (11.5-14.5); WBC 4.7 10x3/uL (4.8-10.8)
[2019-09-04 10:59] LABS: INR 1.11 (0.85-1.17); PROTIME 14.3 SECONDS (11.6-15.0)
[2019-09-04 11:00] LABS: APTT 43.4 SECONDS (22.8-39.4)
[2019-09-04 11:01] LABS: ANION GAP 8.4 mmol/L (8-16); CALCIUM 9.3 mg/dL (8.5-10.1); CREATININE - SERUM 1.3 mg/dL (0.6-1.3); POTASSIUM - SERUM 4.4 mmol/L (3.5-5.1)
[2019-09-04 11:04] LABS: PLATELET COUNT 223 10x3/uL (130-400)
[~2019-09-05] VITALS: Ht 182.9 cm; Wt 109.1 kg
--- NOTE | ~2019-09-05 | HEMODYNAMI ---
PATIENT:ADRIANA MASON MEDICAL RECORD: [id number] : [birth year] [id number] ADMISSION DATE: 09/05/19 Generatedon:09/05/20198:59 Patient name: ADRIANA MASON Patient #: [id number] SSN: [id number] : 1955 Date of study: 09/05/2019 Page: Of Hemodynamic Procedure Report Patient Data Patient Demographics Procedure consent was obtained First Name: ADRIANA Gender: Male Last Name: ISABELLA : 1955 Middle Initial: CHANTELLE Age: 64 year(s) Patient #: [id number] Race: SSN: [id number] Additional ID: [id number] Contact details Address: [address] [place] [address] State: [place] City: [place] Zip code: [address] Past Medical History Allergies: No known allergies Admission Admission Data Admission Date: 09/05/2019 Admission Time: 6:43 Height (in.): 72 BSA: 2.32 (m2) Height (cm.): 182.88 BMI: 33.09 (kg/m2) Weight (lbs.): 244 Weight (kg.): 110.68 Procedure Procedure Types Cath Procedure Peripheral Cath Diagnostic Procedure Soap Drier Operator Peripheral Procedures Nephro Perc Neph Uret Cath Procedure Description Procedure Date Procedure Date: 09/05/2019 Procedure Start Time: 8:29 Procedure Staff Name Function Biju Poe MD Performing Physician Emily Garcia RT Bumper Operator Tran Waldrop RN Nurse Janice Jimenez RN Nurse Kristopher Guardado RT Scrub Procedure Data Cath Procedure Fluoroscopy Diagnostic fluoroscopy Total fluoroscopy Time: 6 time: 6 min min Diagnostic fluoroscopy Total fluoroscopy dose: 221 dose: 221 mGy mGy Contrast Material Contrast Material Type Amount (ml) Isovue 300 15 Procedure Medications Medication Administration Route Dosage Heparin Flush Bag added to field 1 bags (1000units/500ml NS) Lidocaine 1% added to field 20 unlisted medication 1 Versed I.V. 1 mg Fentanyl I.V. 50 mcg Versed I.V. 1 mg Fentanyl I.V. 50 mcg Versed I.V. 1 mg Fentanyl I.V. 50 mcg Versed I.V. 1 mg Fentanyl I.V. 50 mcg Hemodynamics Rest BSA: 2.32 (m2) O2 Consumption: Estimated: 268.41 (ml/min) O2 Consumption indexed : Estimated:115.69 (ml/min/m) Heart Rate: 68 (bpm) Snapshots Pre Cath Intra NCS Post Cath Vital Signs Time Heart Resp SPO2 etCO2 NIBP (mmHg) Rhythm Pain Sedation Rate (ipm) (%) (mmHg) Status Level (bpm) 8:15:19 116 24 97 32.1 159/102(141) NSR 0 (11) 10(A) , No pain 8:19:39 68 15 97 32.9 161/89(126) NSR 0 (11) 10(A) , No pain 8:23:53 71 22 97 30.6 154/95(133) NSR 0 (11) 10(A) , No pain 8:28:13 72 17 98 32.1 162/105(130) NSR 0 (11) 10(A) , No pain 8:32:35 68 20 98 31.4 178/99(151) NSR 0 (11) 9(A) , No pain 8:36:55 77 15 95 35.9 153/94(123) NSR 0 (11) 8(A) , No pain 8:41:14 74 19 94 40.4 152/99(129) NSR 0 (11) 8(A) , No pain 8:45:30 70 14 96 38.9 151/94(122) NSR 0 (11) 8(A) , No pain 8:49:44 77 13 95 41.1 152/102(137) NSR 0 (11) 8(A) , No pain 8:54:04 69 39 94 32.9 148/87(130) NSR 0 (11) 10(A) , No pain 8:58:24 32.9 160/85(137) NSR 0 (11) 10(A) , No pain Medications Time Medication Route Dose Verified Delivered Reason Notes Effec tiveness by by 7:53:03 Heparin Flush added 1 Biju Ivy used for Bag to bags Deepika Poe MD procedure (1000units/500ml field NS) 7:53:16 Lidocaine 1% added 20ml Biju Ivy for local to vial Deepika Poe MD anesthetic field MORA 7:58:49 cefepime ivpb 1 gm Biju Camacho Per Tony Poe RN physician 8:31:57 Versed I.V. 1 mg Biju Camacho for Deepika, Tony SHAW sedation 8:32:08 Fentanyl I.V. 50 Biju Janice for mcg Deepika, Tony SHAW sedation 8:35:08 Versed I.V. 1 mg Biju Janice for Tony Poe RN sedation 8:35:17 Fentanyl I.V. 50 Biju Janice for mcg Deepika, Tony RN sedation 8:46:00 Versed I.V. 1 mg Biju Janice for Tony Poe RN sedation 8:46:08 Fentanyl I.V. 50 Biju Janice for mcg Deepika, Tony SHAW sedation 8:51:05 Versed I.V. 1 mg Biju Gravesody for Tony Poe RN sedation 8:51:13 Fentanyl I.V. 50 Biju Janice for mcg Tony Poe RN sedation Procedure Log Time Note 7:50:10 Patient Height : 72 inches 7:50:15 Patient Weight : 244 lbs 7:50:41 Time tracking: Regular hours (M-F 7:00 - 5:00) 7:51:12 Plan of Care:Hemodynamics will remain stable., Cardiac rhythm will remain stable., Comfort level will be maintained., Respiratory function will remain adequate., Patient/ family verbilizes understanding of procedure., Procedure tolerated without complication., Recovers from procedure without complications.. 7:51:18 Patient received from Outpatients to IR Alert and oriented. Tansferred to table in Prone position. 7:51:25 Signed procedure consent form obtained from patient. 7:51:51 H&P Date Dictated: 09/05/2019 Within 30 days and on chart., H&P Addendum completed by physician on day of procedure. (MUST COMPLETE FOR ALL OUTPATIENTS). 7:51:53 Pre-procedure instructions explained to patient. 7:51:54 Pre-op teaching completed and patient verbalized understanding. 7:51:56 Family in waiting room. 7:51:58 Patient NPO since Midnight. 7:52:07 Patient allergic to No known allergies 7:52:14 Is the patient allergic to Iodine/contrast media? No. 7:52:17 Is patient on blood thinner?Yes 7:52:25 ACC The patient was administered the following blood thiners on 09-01-2019: Eliquis 7:53:03 Heparin Flush Bag (1000units/500ml NS) 1 bags added to field was administered by Biju Poe MD; used for procedure; Verbal order read back and verified. 7:53:13 Patient diabetic? No. 7:53:16 Lidocaine 1% 20ml vial added to field was administered by Biju Poe MD; for local anesthetic; Verbal order read back and verified. 7:53:16 7:53:17 ----Pre-sedation anethsthesia assessment.---- 7:53:21 Previous problem with sedation/anesthesia? No ? 7:53:24 Snore? Yes 7:53:26 Sleep apnea? No 7:53:33 Deviated septum? No 7:53:36 Opens mouth fully? Yes 7:53:38 Sticks out tongue? Yes 7:53:43 Airway obstruction? No ? 7:53:48 Dentures? No ? 7:53:49 7:54:10 IV patent on arrival in left forearm with D5/.45%NaCl at KVO. 7:58:49 cefepime 1 gm ivpb was administered by Janice Jimenez RN; Per physician; Verbal order read back and verified. 7:58:54 Use device set IR Diagnostic 7:58:57 Tegaderm 4 x 4 (1626W) opened to sterile field. 7:58:58 Sterile Angiographic Pack opened to sterile field. 7:58:59 Bag Decanter (2001S) opened to sterile field. 7:59:31 CHIBA 22 X 15 needle opened to sterile field. 7:59:32 GLIDE CATHETER 5FR ANGLED 65cm (CG507) opened to sterile field. 7:59:42 KIT, INTRODUCER ACCUSTICK II W/C ([id number]) opened to sterile field. 8:14:05 ECG and BP/O2 sat monitors applied to patient. 8:14:06 Vital chart was started 8:14:08 Baseline sample Acquired. 8:14:10 Full Disclosure recording started 8:14:12 8:14:51 Left Renal was prepped with chlora-prep and draped in sterile fashion. 8:14:54 8:15:02 Fire Safety Assessment: A--An alcohol-based skin anteseptic being used preoperatively., C--Open oxygen or nitrous oxide is being used. 8:15:20 3a) 45-59 Moderately reduced kidney function. 8:16:07 Maximum allowable contrast dose (3.7 X eGFR X 0.75)163 ml. 8:28:50 Physician arrived 8:28:51 --------ALL STOP TIME OUT------ 8:28:52 Final Timeout: patient, procedure, and site verified with staff and physician. All members of the team are in agreement. 8:29:21 Procedure started. 8:29:32 Local anesthetic to Left Renal area with Lidocaine 1% by Biju Poe MD.INITIAL ACCESS ONLY 8:31:57 Versed 1 mg I.V. was administered by Janice Tony RN; for sedation; Verbal order read back and verified. 8:32:08 Fentanyl 50 mcg I.V. was administered by Janice Jimenez RN; for sedation; Verbal order read back and verified. 8:35:08 Versed 1 mg I.V. was administered by Janice Jimenez RN; for sedation; Verbal order read back and verified. 8:35:17 Fentanyl 50 mcg I.V. was administered by Janice Jimenez RN; for sedation; Verbal order read back and verified. 8:43:45 NITINOL .018 80cm wire ([id number]) opened to sterile field. 8:46:00 Versed 1 mg I.V. was administered by Janice Jimenez RN; for sedation; Verbal order read back and verified. 8:46:08 Fentanyl 50 mcg I.V. was administered by Janice Jimenez RN; for sedation; Verbal order read back and verified. 8:51:05 Versed 1 mg I.V. was administered by Janice Jimenez RN; for sedation; Verbal order read back and verified. 8:51:13 Fentanyl 50 mcg I.V. was administered by Janice Jimenez RN; for sedation; Verbal order read back and verified. 8:53:14 GLIDE WIRE Super Stiff Angled 260cm (DS8538) opened to sterile field. 8:53:29 GLIDE WIRE ANGLE 180cm (TN9595) opened to sterile field. 8:53:38 TORQUE DEVICE PLASTIC .038 ( TD01) opened to sterile field. 8:54:10 8:54:21 Procedure ended.(Physican Out) 8:54:54 Fluoroscopy time 06.00 minutes. 8:54:59 Fluoroscopy dose: 221 mGy 8:54:59 Flurop Dose total: 221 8:55:05 Contrast amount:Isovue 300 15ml. 8:55:08 Procedure and supply charges have been captured, reviewed, submitted and are correct. 8:59:21 Vital chart was stopped Device Usage Item Name Manufacture Quantity Catalog Hospital Part Current Minimal Lot# / Number Charge Number Stock Stock Serial# Code Tegaderm 4 x 3M 1 1626W [id number] [id number] [id number] 5 4 (1626W) Sterile Cardinal 1 [id number] 548321 165938 5 Angiographic Health Pack Bag Decanter Microtek 1 2001S 742694 70890 561548 5 (2002S) Medical Inc. CHIBA 22 X Stereotypes Medical 1 [id number] 720657 143103 5 [id number] 15 needle GLIDE Terumo 1 CG507 347571 493871 5 CATHETER 5FR ANGLED 65cm (CG507) KIT, Alvin 1 [id number] 496074 802703 594436 5 INTRODUCER Scientific ACCUSTICK II W/C ([id number]) NITINOL .018 Medtronic 1 [id number] 815794 849400 5 80cm wire ([id number]) GLIDE WIRE Terumo 1 WY0047 090076 574874 714591 5 Super Stiff Angled 260cm (ZP5715) GLIDE WIRE Terumo 1 [id number] 702826 085665 812912 5 ANGLE 180cm (AG7053) TORQUE [place] 1 TD01 426105 618376 889544 5 DEVICE Scientific PLASTIC .038 ( TD01) Signature Audit Vida Stage Time Signature Unsigned Intra-Procedure 09/05/2019 Emily Garcia 8:59:17 AM RT(R) [facility] [address] [place] [address]
[~2019-09-05 06:43] MED LIST changes: +LOVENOX INJ100 MG/ML SC
[2019-09-05 07:16] VITALS: BP 154/91; BMI 33.3
[2019-09-05 12:44] LABS: BASOPHILS 0.7 % (0-2); EOSINOPHILS 6.4 % (0-7); HEMATOCRIT 45.5 % (42.0-54.0); HEMOGLOBIN 15.7 g/dL (13.5-17.5); IMMATURE GRANULOCYTES 0.7 % (0-5); LYMPHOCYTES 22.7 % (15-50); MCHC 34.5 g/dL (31.0-37.0); MCV 92.7 fL (80.0-100.0); MONOCYTES 4.4 % (2-11); NEUTROPHILS 65.1 % (40-80); PLATELET COUNT 205 10x3/uL (130-400); RBC 4.91 10x6/uL (4.20-6.10); RDW 13.4 % (11.5-14.5); WBC 4.1 10x3/uL (4.8-10.8)
[2019-09-05 13:20] VITALS: BP 130/71
--- NOTE | 2019-09-05 14:02 | NUR ---
1130 PATIENT C/O PALPITATIONS. PATIENT HAS A HX OF A-FIB. ANESTHESIA CONSULTED. VERBAL ORDERS RECEIVED FROM DR. VALADEZ TO GET A POST OP EKG. THIS WAS REVIEWED BY DR. VALADEZ. NO EKG CHANGES. NORMAL SINUS RYTHYM NOTED. NO NEW ORDERS RECEIVED. WILL CONTINUE TO MONITOR.
[2019-09-05 14:23] VITALS: BP 130/71; Ht 182.9 cm; Wt 109.1 kg
[2019-09-05 18:02] VITALS: BP 122/71
[2019-09-06 04:00] VITALS: BP 112/63
--- NOTE | 2019-09-06 07:10 | NUR ---
PT RESTING IN BED. NO SIGNS OF DISTRESS. IV TO RIGHT AC PATENT NO REDNESS OR TENDERNESS. HAS SCHULZ NO KINKS PATENT. HAS NEPHROSTOMY TUBE NO KINKS PATENT. COMPLAINS OF PAIN. MEDICATIONS ALREADY GIVEN. DENIES ANY FURTHER NEED AT THIS TIME. CALL LIGHT IN REACH. BED LOW POSITION. FAMILY AT BEDSIDE AT THIS TIME.
--- NOTE | 2019-09-06 08:43 | OP ---
PATIENT NAME: ADRIANA MASON MEDICAL RECORD: [id number] :[birth year] LOCATION:[id number] ADMISSION DATE:09/05/19 SURGEON: DEANNE OCHOA MD DATE OF OPERATION: 09/05/2019 SURGEON: Deanne Ochoa MD ANESTHESIA: General anesthesia by Deanne Beasley MD DIAGNOSIS: Left lower pole 15 mm renal stone. PROCEDURES: Left percutaneous nephrolithotomy ( PCNL). SPECIMEN: Renal stone. BLOOD LOSS: Minimal. CLINICAL HISTORY: This is a 64-year-old male, who developed mireya hematuria after he started Eliquis treatment for DVT and pulmonary embolism. He has been complaining of left flank pain. A CT scan of the abdomen and pelvis shows a fat-containing umbilical hernia, degenerative disease of the lumbar spine and osteoarthritis of the hips. It also shows a 15 mm stone in the left kidney and an 8 mm stone with a smaller stone in the right kidney. The right kidney stones are nonobstructive. He comes now to have a percutaneous nephrolithotomy performed. His Eliquis was stopped and he was bridged with Lovenox. He was given cefepime inside sales consultant to the OR today. DESCRIPTION OF PROCEDURE: The patient was given induction of general anesthesia in supine position on his stretcher. He was then placed in frog-leg position. He was prepped and draped. Cystoscopy was performed using a 21-Azerbaijani cystoscope. Grasping forceps were used to pull the distal end of the nephroureteral access stent out through the penile urethra. This will allow us to clamp the access wire we inflated in, in order to prevent loss of the access tract. A Alexis catheter was then inserted and put to bag drainage. He was then turned over into the prone position on the Aravind frame. The nephroureteral catheter was accessed by placing an Amplatz Super Stiff wire down through the lumen. It came out through the penile urethra and the circulating nurse then applied a hemostat to the wire to prevent loss of access tract. The nephroureteral catheter was then removed entirely by pulling it out of the nephrostomy tract site. A 1-cm incision was then made on either side of the wire. We then placed a dual lumen catheter over the Super Stiff wire down into the proximal ureter. Through the second lumen of the dual lumen catheter, we inserted a Sensor wire. This went down into the bladder. The dual lumen catheter was then removed, leaving the [address] The Sensor wire was clamped to the drapes as a safety wire. We worked over the Super Stiff wire. On fluoroscopy, we could see the stone as a triangular shaped density inferior to the wire. The NephroMax balloon dilator was then inserted over the Super Stiff wire. The tip of the NephroMax was placed adjacent to the stone. The balloon was inflated to 16 atmospheres to dilate the tract. The working sheath was then slid down over the balloon. The balloon was then deflated and removed entirely. The working sheath was left in place. We then inserted the nephroscope. We immediately encountered the stone. I used the [place] Islander LithoClast and the ultrasonic modality to fracture the stone into smaller fragments. The V[employer] Solutions Yaar-C-Svwwys stone basket was used to remove the bulk of the stone. Some of the larger fragments were also removed using the Dvoo-T-Jhgveh. The [place] Islander OPERATIVE REPORT [id number] ISABELLAADRIANA CHANTELLE LithoClast suction ultrasonic modality was then used to remove any residual fragments at the end of the procedure, we could see no further stones in the kidney and there were no further radiographic signs of a stone. The scope was removed entirely. We inserted a 24-Azerbaijani Malecot nephrostomy tube down through the working sheath over the Super Stiff wire. Once the Malecot nephrostomy tube was in position in the renal pelvis, we removed the working sheath, we removed both wires entirely. The nephrostomy tube was sutured to the skin using 2-0 nylon. It was put to bag drainage. The patient then had a dressing applied to the nephrostomy tube site. He was awakened and brought to the recovery room. He will be admitted to hospital for 2 days, at which point, I can remove the nephrostomy tube and discharge him home. TRANSINT:[id number] Voice Confirmation ID: [id number] DOCUMENT ID: [id number] DEANNE OCHOA MD at 0843 CC: [id number] DICTATION DATE: 09/05/19 1124 TAPE SEWING MACHINE OPERATOR: 09/05/197 ADM IN [facility] [place] [id number] [place] [address]
[2019-09-06 09:53] VITALS: BP 125/60
[2019-09-06 13:11] VITALS: BP 103/53
[2019-09-06 17:02] VITALS: BP 92/57
--- NOTE | 2019-09-06 18:45 | NUR ---
I have reviewed this patient and I concur with the Shift Assessment completed by the Licensed Practical Nurse today this shift.
[2019-09-06 20:00] VITALS: BP 106/62
--- NOTE | 2019-09-06 23:00 | NUR ---
RECIEVED REPORT FROM JOSETTE GONZALEZ. PT STABLE. NO NEEDS AT THIS TIME. WILL CONTINUE PLAN OF CARE. CALL LIGHT IN REACH. BED LOWERED AND LOCKED.
[2019-09-07] VITALS: BP 105/54
--- NOTE | 2019-09-07 02:06 | NUR ---
I have reviewed this patient and I concur with the Shift Assessment completed by the Licensed Practical Nurse today this shift.
[2019-09-07 04:00] VITALS: BP 135/66
--- NOTE | 2019-09-07 07:30 | NUR ---
PT RESTING IN BED, REQUEST TO HAVE IV DISCONNECTED SO PT CAN AMBULATE AND PROVIDE OWN PERSONAL CARE. IV TO RIGHT AC WITH NS @ 125ML/HR WITH DILAUDID EMERGENCY MANAGEMENT DIRECTOR INFUSING VIA PUMP. SITE WITHOUT REDNESS OR EDEMA. DENIES PAIN AT THIS TIME. LEFT NEPHROSTOMY INTACT DRAINING BLOOD TINGED DRAINAGE. PT REQUEST SCD'S BE REMOVED AT THIS TIME. DENIES FURTHER NEEDS AT THIS TIME. CL WITHIN REACH. ENCOURAGED TO CALL WITH NEEDS. CONTINUE POC
[2019-09-07 09:03] VITALS: BP 150/72
--- NOTE | 2019-09-07 09:30 | NUR ---
PT UP AND AMBULATING IN HALLWAY. NEPHROSTOMY REMAINS INTACT TO DRAINAGE BAG. DENIES PAIN OR FURTHER NEEDS.
--- NOTE | 2019-09-07 11:40 | NUR ---
PT SITTING UP IN CHAIR AT BEDSIDE. DENIES PAIN, DENIES FURTHER NEEDS. CL WITHIN REACH. ENCOURAGED TO CALL WITH NEEDS.
[2019-09-07 12:10] VITALS: BP 137/76
[2019-09-07] MEDS ORDERED: HYDROCODON-ACE1 EA10 PO (12:59)
== END 2019-09-07 14:17 | disposition home or self-care (01) | DRG 660 ==
LOC: D.OPS 06:43 → D.MS 11:14 → D.OPS 11:38 → D.MS 11:38
PROVIDERS: General Practice; ADMIT Urology; ATTEND Urology
PROC: 0T9130Z Drainage of Left Kidney with Drainage Device, Percutaneous Approach (ICD-10-PCS; 2019-09-05)
PROC: 0TC13ZZ Extirpation of Matter from Left Kidney, Percutaneous Approach (ICD-10-PCS; principal; 2019-09-05 08:30)
DX: N20.0 Calculus of kidney (principal); N02.9 Recurrent and persistent hematuria with unspecified morphologic changes; I25.10 Atherosclerotic heart disease of native coronary artery without angina pectoris

== ENCOUNTER → 2019-11-06 10:16 | Outpatient (CLI) | payer BC ==
[2019-09-05 14:23] VITALS: BMI 32.6
== END | disposition home or self-care (01) ==
LOC: D.CT 10-24 09:00
PROVIDERS: ATTEND Family Medicine
DX: R91.8 Other nonspecific abnormal finding of lung field (principal); I82.409 Acute embolism and thrombosis of unspecified deep veins of unspecified lower extremity; I26.99 Other pulmonary embolism without acute cor pulmonale

== ENCOUNTER 2020-03-29 23:11 | Emergency (ER) | payer BC ==
[~2020-03-29] VITALS: Ht 182.9 cm; Wt 111.4 kg
[2020-03-29 23:18] VITALS: Ht 182.9 cm; Wt 111.4 kg
[2020-03-29 23:45] LABS: BASOPHILS 0.8 % (0-2); EOSINOPHILS 5.4 % (0-7); HEMATOCRIT 44.8 % (42.0-54.0); HEMOGLOBIN 15.4 g/dL (13.5-17.5); IMMATURE GRANULOCYTES 0.3 % (0-5); LYMPHOCYTES 19.3 % (15-50); MCH 32.3 pg (26.0-34.0); MCHC 34.4 g/dL (31.0-37.0); MCV 93.9 fL (80.0-100.0); MEAN PLATELET VOLUME 9.6 fL (7.4-10.4); MONOCYTES 10.1 % (2-11); NEUTROPHILS 64.1 % (40-80); PLATELET COUNT 203 10x3/uL (130-400); RBC 4.77 10x6/uL (4.20-6.10); RDW 12.6 % (11.5-14.5); WBC 6.1 10x3/uL (4.8-10.8)
[2020-03-29 23:54] LABS: APTT 32.1 SECONDS (22.8-39.4); CALC OSMOLALITY 286 mosm/kg (275-300); CALCIUM 9.6 mg/dL (8.5-10.1); CARBON DIOXIDE 25.7 mmol/L (21.0-32.0); CHLORIDE - SERUM 107 mmol/L (98-107); CREATININE - SERUM 2.1 mg/dL (0.6-1.3); GLUCOSE 135 mg/dL (74-106); POTASSIUM - SERUM 4.1 mmol/L (3.5-5.1); PROTIME 47.4 SECONDS (11.6-15.0); SODIUM 139 mmol/L (136-145); UREA NITROGEN 31 mg/dL (7-18); eGFR NON AFRICAN AMERICAN 34 mL/min (90-120)
[2020-03-29 23:56] LABS: INR 5.3 (0.85-1.17)
[2020-03-30 00:39] LABS: ALKALINE PHOSPHATASE 97 U/L (30-120); ALT (SGPT) 51 U/L (10-68); BILIRUBIN - TOTAL 0.32 mg/dL (0.2-1.3); CKMB 11.8 U/L (0.0-3.6); CREATINE KINASE 1063 UL (21-232); MAGNESIUM - SERUM 1.8 mg/dL (1.8-2.4); TROPONIN-I < 0.017 ng/mL (0.000-0.060)
[2020-03-30] MEDS ORDERED: ZOFRAN ODT4 MG/UDTAB PO (00:58)
[2020-03-30] MEDS ORDERED: NORCO 7.5-3251 EACH PO (00:58)
[2020-03-30] MEDS ORDERED: KEFLEX500 MG PO (00:58)
[2020-03-30] MEDS ORDERED: FLOMAX0.4 MG PO (00:58)
[2020-03-30 01:24] VITALS: BP 120/66
== END 2020-03-30 01:26 | disposition home or self-care (01) ==
LOC: D.ER 23:11
PROVIDERS: Emergency Medicine
DX: N13.39 Other hydronephrosis (principal); N13.2 Hydronephrosis with renal and ureteral calculous obstruction; R94.4 Abnormal results of kidney function studies; R74.8 Abnormal levels of other serum enzymes; R79.89 Other specified abnormal findings of blood chemistry; I10 Essential (primary) hypertension; I25.2 Old myocardial infarction; Z95.5 Presence of coronary angioplasty implant and graft; I48.91 Unspecified atrial fibrillation; I25.10 Atherosclerotic heart disease of native coronary artery without angina pectoris

== ENCOUNTER 2020-04-08 10:22 | Emergency (ER) | payer BC ==
[~2020-04-08] VITALS: Ht 182.9 cm; Wt 111.4 kg
[~2020-04-08 10:22] MED LIST changes: +FLOMAX0.4 MG PO; +KEFLEX500 MG PO; +NORCO 7.5-3251 EACH PO; +ZOFRAN ODT4 MG/UDTAB PO
[2020-04-08 10:43] VITALS: Ht 182.9 cm; Wt 111.4 kg
[2020-04-08 13:06] VITALS: BP 157/58
== END 2020-04-08 13:06 | disposition home or self-care (01) ==
LOC: D.ER 10:22
DX: S63.115A Dislocation of metacarpophalangeal joint of left thumb, initial encounter (principal); W01.0XXA Fall on same level from slipping, tripping and stumbling without subsequent striking against object, initial encounter; Y93.9 Activity, unspecified; Y92.9 Unspecified place or not applicable; I10 Essential (primary) hypertension; I25.2 Old myocardial infarction

== ENCOUNTER 2020-09-02 09:10 | Observation (INO) | payer BC ==
[~2020-09-02] VITALS: Ht 182.9 cm
[2020-09-02 10:20] LABS: BASOPHILS 0.8 % (0-2); EOSINOPHILS 8.3 % (0-7); HEMATOCRIT 51.2 % (42.0-54.0); HEMOGLOBIN 17.2 g/dL (13.5-17.5); IMMATURE GRANULOCYTES 0.3 % (0-5); LYMPHOCYTE ABS# 1.21 10x3/uL (1.32-3.57); LYMPHOCYTES 19.8 % (15-50); MCH 31.6 pg (26.0-34.0); MCHC 33.6 g/dL (31.0-37.0); MCV 93.9 fL (80.0-100.0); MEAN PLATELET VOLUME 9.9 fL (7.4-10.4); MONOCYTES 11.4 % (2-11); NEUTROPHIL ABS# 3.63 10x3/uL (1.78-5.38); NEUTROPHILS 59.4 % (40-80); PLATELET COUNT 193 10x3/uL (130-400); RBC 5.45 10x6/uL (4.20-6.10); RDW 12.7 % (11.5-14.5); WBC 6.1 10x3/uL (4.8-10.8)
[2020-09-02 10:29] LABS: CALC OSMOLALITY 280 mosm/kg (275-300); CALCIUM 9.4 mg/dL (8.5-10.1); CARBON DIOXIDE 27.3 mmol/L (21.0-32.0); CHLORIDE - SERUM 106 mmol/L (98-107); CREATININE - SERUM 1.3 mg/dL (0.6-1.3); GLUCOSE 101 mg/dL (74-106); POTASSIUM - SERUM 4.5 mmol/L (3.5-5.1); SODIUM 140 mmol/L (136-145); UREA NITROGEN 17 mg/dL (7-18); eGFR NON AFRICAN AMERICAN 58 mL/min (90-120)
[2020-09-02 10:32] LABS: APTT 31.8 SECONDS (22.8-39.4); INR 1.27 (0.85-1.17); PROTIME 14.7 SECONDS (11.6-15.0)
[2020-09-02 10:34] LABS: D-DIMER-QUANTITATIVE < 0.27 ug/mLFEU (0.20-0.54)
[2020-09-02 10:49] LABS: ALBUMIN 4.2 g/dL (3.4-5.0); ALKALINE PHOSPHATASE 86 U/L (30-120); ALT (SGPT) 41 U/L (10-68); BILIRUBIN - TOTAL 0.51 mg/dL (0.2-1.3); CKMB 2.8 U/L (0.0-3.6); CREATINE KINASE 192 UL (21-232); MAGNESIUM - SERUM 2.2 mg/dL (1.8-2.4); PRO BNP 42 pg/mL (0-125); PROTEIN - SERUM 7.6 g/dL (6.4-8.2); TROPONIN-I < 0.017 ng/mL (0.000-0.060)
--- NOTE | 2020-09-02 10:49 | NUR ---
EKG DELAYED DUE TO PATIENT NOT WANTING TO LIE DOWN. PATIENT SEEMS ANXIOUS AND STATES STANDING UP HELPS WITH PAIN. PATIENT GIVEN PAIN MEDS AND AGREED TO LIE DOWN. EKG WAS DONE AND GIVEN TO PROVIDER. VENOUS DOPPLERS DONE PER TECH WITH PRELIMINARY REPORT OF NEGATIVE FOR DVT PER TECH
[2020-09-02 11:42] LABS: BILIRUBIN NEGATIVE (NEGATIVE); KETONE NEGATIVE (NEGATIVE); NITRITE NEGATIVE (NEGATIVE); UROBILINOGEN NORMAL mg/dL (< 2)
[2020-09-02 12:01] VITALS: BP 139/75
[2020-09-02 12:04] LABS: BACTERIA FEW HPF (NONE SEEN); SQUAMOUS EPITHELIAL 0-5 HPF (0-4); WHITE CELLS - URINE 0-5 HPF (0-1)
--- NOTE | 2020-09-02 13:51 | NUR ---
CONSULT NOTIFIED FOR DR HAMLIN
[2020-09-02 15:20] LABS: CKMB 2.8 U/L (0.0-3.6); CREATINE KINASE 192 UL (21-232); TROPONIN-I < 0.017 ng/mL (0.000-0.060)
[2020-09-02 16:01] VITALS: BP 121/59
[2020-09-02 18:00] VITALS: BP 142/78
--- NOTE | 2020-09-02 18:00 | NUR ---
RECEIVED PATIENT FROM THE ER VIA WHEELCHAIR. PATIENT AMBULATES WELL FROM CHAIR TO BED. PATIENT ANSWERS ALL OF HIS QUESTIONS APPROPRIATELY. PLAN OF CARE REVIEWED AND ASSESSMENT HAS BEEN COMPLETED. BARBARA'S IN ROOM WITH PATIENT. PATIENT STATES HE CAME TODAY DUE TO RIGHT FLANK PAIN BUT HE THINKS HE COULD HAVE PASSED IT AT HOME, BUT SINCE HE HAS A HEART HISTORY.. HE DECIDED HE BETTER COME TO THE HOSPITAL. PATIENT DENIES PAIN AT THIS TIME HE FEELS OKAY FROM WHAT HE HAD GOTTEN IN THE ER. NURSE JAREDS UNDERSTANDING. CALL LIGHT IN REACH
[2020-09-02 18:08] VITALS: BP 142/78; Ht 182.9 cm
[2020-09-02 20:21] LABS: CKMB 3.1 U/L (0.0-3.6); CREATINE KINASE 179 UL (21-232)
[2020-09-02 20:26] LABS: TROPONIN-I < 0.017 ng/mL (0.000-0.060)
[2020-09-02 22:58] VITALS: BP 121/65
--- NOTE | 2020-09-03 01:14 | NUR ---
RESTING WITH EYES CLOSED, RESPERATIONS EVEN, NO S/S DISTRESS NOTED.
[2020-09-03 02:25] LABS: BASOPHILS 0.5 % (0-2); EOSINOPHILS 7.7 % (0-7); HEMATOCRIT 42.6 % (42.0-54.0); HEMOGLOBIN 14.3 g/dL (13.5-17.5); IMMATURE GRANULOCYTES 0.3 % (0-5); LYMPHOCYTE ABS# 1.41 10x3/uL (1.32-3.57); LYMPHOCYTES 22.7 % (15-50); MCH 31.4 pg (26.0-34.0); MCHC 33.6 g/dL (31.0-37.0); MCV 93.4 fL (80.0-100.0); MEAN PLATELET VOLUME 9.3 fL (7.4-10.4); MONOCYTES 10.8 % (2-11); PLATELET COUNT 164 10x3/uL (130-400); RBC 4.56 10x6/uL (4.20-6.10); RDW 12.4 % (11.5-14.5); WBC 6.2 10x3/uL (4.8-10.8)
[2020-09-03 03:37] LABS: ALBUMIN 3.2 g/dL (3.4-5.0); ALKALINE PHOSPHATASE 64 U/L (30-120); ALT (SGPT) 33 U/L (10-68); BILIRUBIN - TOTAL 0.52 mg/dL (0.2-1.3); CALC OSMOLALITY 284 mosm/kg (275-300); CALCIUM 7.9 mg/dL (8.5-10.1); CARBON DIOXIDE 26.8 mmol/L (21.0-32.0); CHLORIDE - SERUM 108 mmol/L (98-107); CREATINE KINASE 164 UL (21-232); CREATININE - SERUM 1.2 mg/dL (0.6-1.3); GLUCOSE 90 mg/dL (74-106); MAGNESIUM - SERUM 1.7 mg/dL (1.8-2.4); PHOSPHOROUS 3.5 mg/dL (2.5-4.9); POTASSIUM - SERUM 4.4 mmol/L (3.5-5.1); PROTEIN - SERUM 5.8 g/dL (6.4-8.2); SODIUM 142 mmol/L (136-145); UREA NITROGEN 18 mg/dL (7-18); eGFR NON AFRICAN AMERICAN 64 mL/min (90-120)
[2020-09-03 03:38] LABS: TROPONIN-I < 0.017 ng/mL (0.000-0.060)
--- NOTE | 2020-09-03 04:03 | NUR ---
I have reviewed this patient and I concur with the Shift Assessment completed by the Licensed Practical Nurse today this shift.
[2020-09-03 08:00] VITALS: BP 126/63
[2020-09-03] MEDS ORDERED: FLOMAX0.4 MG PO (10:26)
--- NOTE | 2020-09-03 11:33 | NUR ---
PT VERBALIZED UNDERSTANDING OF DISCHARGE ORDERS. PIV REMOVED. PT PLACED IN WHEELCHAIR. HOSPICE ENTRANCE ATTENDANT TO TAKE PT TO DOOR VIA WHEELCHAIR. VSS. PT REPORTS NO PAIN AT THIS TIME. CLEAR FOR DISCHARGE.
== END 2020-09-03 14:29 | disposition home or self-care (01) ==
LOC: D.ER 09:10 → OBSVTIME 12:52 → D.EDHOLD 12:52 → D.M2 12:52 → D.EDHOLD 12:52 → D.M2 17:26
PROVIDERS: Family Medicine; ADMIT Emergency Medicine; ATTEND Emergency Medicine
DX: R07.9 Chest pain, unspecified (principal); N20.0 Calculus of kidney; R60.0 Localized edema; I10 Essential (primary) hypertension; I25.10 Atherosclerotic heart disease of native coronary artery without angina pectoris; I48.0 Paroxysmal atrial fibrillation